=== PATIENT | female | born 1970 | race Caucasian/White ===

== ENCOUNTER 2017-01-05 06:38 | Emergency (ER) | payer OTHER ==
--- NOTE | 2017-01-05 07:06 | ED.ADGEN ---
Adult General [facility] HPI Patient is a 46-year-old female presents emergency department complaining of epigastric pain that started 4-5 hours ago. Last "a few seconds" each time it comes. She indicates the pain starts at her epigastrium and wraps around the right side. Does have a history of peptic ulcer disease. The pain is sharp and "takes her breath away" but resolves on its own. Patient denies any other associated symptoms such as denies diaphoresis, dyspnea, nausea, vomiting. She reports that she did have some nausea yesterday but that is not unusual for her. Review of Systems Review of Systems Constitutional: Denies fever or chills [] Eyes: Denies change in visual acuity, redness, or eye pain [] HENT: Denies nasal congestion or sore throat [] Respiratory: Denies cough or shortness of breath [] Cardiovascular: No additional information not addressed in HPI [] GI: Denies abdominal pain, nausea, vomiting, bloody stools or diarrhea [] : Denies dysuria or hematuria [] Musculoskeletal: Denies back pain or joint pain [] Integument: Denies rash or skin lesions [] Neurologic: Denies headache, focal weakness or sensory changes [] Endocrine: Denies polyuria or polydipsia [] Allergies Allergies Allergies Coded Allergies Type Severity Reaction Last Updated Verified aspirin Allergy Severe Shortness of Air 01/05/17 Yes chlordiazepoxide Allergy Severe Swelling 01/05/17 Yes clidinium Allergy Severe Swelling 01/05/17 Yes erythromycin base Allergy Intermediate Hives 01/05/17 Yes ibuprofen Allergy Intermediate Hives 01/05/17 Yes adhesive tape Allergy Unknown 01/05/17 Yes fentanyl Allergy Unknown 01/05/17 Yes morphine Allergy Unknown Swelling 01/05/17 Yes Physical Exam Physical Exam Constitutional: Well developed, well nourished, no acute distress, non-toxic appearance. [] HENT: Normocephalic, atraumatic, bilateral external ears normal, oropharynx moist, no oral exudates, nose normal. [] Eyes: PERRLA, EOMI, conjunctiva normal, no discharge. [] Neck: Normal range of motion, no tenderness, supple, no stridor. [] Cardiovascular:Heart rate regular rhythm, no murmur [] Lungs & Thorax: Bilateral breath sounds clear to auscultation [] Abdomen: Bowel sounds normal, soft, no tenderness, no masses, no pulsatile masses. [] Skin: Warm, dry, no erythema, no rash. [] Back: No tenderness, no CVA tenderness. [] Extremities: No tenderness, no cyanosis, no clubbing, ROM intact, no edema. [] Neurologic: Alert and oriented X 3, normal motor function, normal sensory function, no focal deficits noted. [] Psychologic: Affect normal, judgement normal, mood normal. [] Current Patient Data Vital Signs Vital Signs Date Time Temp Pulse Resp B/P Pulse Ox O2 Delivery O2 Flow Rate FiO2 01/05/17 07:15 70 22 111/61 94 Room Air 01/05/17 06:50 98.2 Lab Results Laboratory Tests Test 01/05/17 07:17 01/05/17 07:19 POC Hemoglobin 14.6gm/dL POC Hematocrit 43% POC Sodium 138mmol/L (135-145) POC Potassium 3.8mmol/L (3.5-5.0) POC Chloride 100mmol/L (98-110) POC Total CO2 23mmol/L (23-32) Anion Gap 20mmol/L (6-14) H POC Blood Urea Nitrogen 16mg/dL (8-26) POC Creatinine 1.1mg/dL (0.5-1.4) Glucose Level 106mg/dL (60-99) H POC Ionized Calcium (Kem) 1.30mmol/L (1.13-1.32) POC Troponin I 0.00ng/ml (<0.08) EKG EKG EKG interpreted by me, normal sinus rhythm, 69 beats for minute, normal axis, no ST segment elevation. [] Radiology/Procedures Radiology/Procedures Chest x-ray interpreted by me, no acute cardiopulmonary process. [] Course & Med Decision Making Course & Med Decision Making Pertinent Labs and Imaging studies reviewed. (See chart for details) Patient is a reassuring workup here. She states that she is new to the area needs a new primary care physician. We did give her a provider list. She will follow-up with her new primary care physician or her previous primary doctor as needed return emergency department sooner if she develops new or worsening symptoms. [] Final Impression Final Impression Chest pain [] Problems: Dragon Disclaimer Dragon Disclaimer This electronic medical record was generated, in whole or in part, using a voice recognition dictation system. LEE SLADE MD Jan 05, 2017 07:06
[2017-01-05 07:15] VITALS: BP 111/61
[2017-01-05 07:32] LABS: HEMOGLOBIN ISTAT 14.6 gm/dL; POTASSIUM ISTAT 3.8 mmol/L (3.5-5.0)
--- NOTE | 2017-01-05 08:18 | RAD ---
Portable chest, 01/05/2017: History: Chest pain The heart size and pulmonary vascularity are normal. No pulmonary infiltrates are seen. There is no evidence of pleural fluid. IMPRESSION: No acute cardiopulmonary abnormality is detected.
[2017-01-05] MEDS ORDERED: LINA290C PO (08:23)
[2017-01-05] MEDS ORDERED: MIRT15TA PO (08:23)
[2017-01-05] MEDS ORDERED: ALBU2.5V14 NEB (08:23)
[2017-01-05] MEDS ORDERED: PROM25TA10 PO (08:24)
[2017-01-05] MEDS ORDERED: BUDE10.2 IH (08:24)
[2017-01-05] MEDS ORDERED: ISOS60TA2 PO (08:25)
[2017-01-05] MEDS ORDERED: HYDR25TA PO (08:25)
[2017-01-05] MEDS ORDERED: ALBU8.5H3 INH (08:26)
[2017-01-05] MEDS ORDERED: INSU100I13 SQ (08:26)
[2017-01-05] MEDS ORDERED: METF500T4 PO (08:26)
[2017-01-05] MEDS ORDERED: MUPI22OI2 TP (08:27)
[2017-01-05] MEDS ORDERED: DULO60CA6 PO (08:27)
[2017-01-05] MEDS ORDERED: OXCA300T PO ×2 (08:28)
[2017-01-05] MEDS ORDERED: LEVE500T56 PO (08:29)
[2017-01-05] MEDS ORDERED: RANI150T2 PO (08:29)
[2017-01-05] MEDS ORDERED: GABA-586 PO (08:29)
[2017-01-05] MEDS ORDERED: TIZA4TAB PO (08:29)
[2017-01-05] MEDS ORDERED: SUMA50TA3 PO (08:30)
[2017-01-05] MEDS ORDERED: NITR0.4T6 SL (08:30)
[2017-01-05] MEDS ORDERED: LAMO100T5 PO (08:30)
[2017-01-05] MEDS ORDERED: OMEP40CA5 PO (08:31)
[2017-01-05] MEDS ORDERED: BACL10TA PO (08:31)
[2017-01-05] MEDS ORDERED: SPIR50TA2 PO (08:31)
[2017-01-05] MEDS ORDERED: QUET200T4 PO (08:32)
[2017-01-05] MEDS ORDERED: ATOR40TA59 PO (08:32)
[2017-01-05] MEDS ORDERED: RIVA10TA PO (08:32)
[2017-01-05] MEDS ORDERED: TIOT18CA IH (08:33)
[2017-01-05] MEDS ORDERED: METO25TA4 PO (08:33)
[2017-01-05] MEDS ORDERED: FLUT16SP NS (08:33)
[2017-01-05] MEDS ORDERED: ZONI100C12 PO (08:33)
[2017-01-05] MEDS ORDERED: HYDR8TAB PO (08:34)
[2017-01-05] MEDS ORDERED: DICL50TA4 PO (08:34)
--- NOTE | 2017-01-05 17:30 | EKG ---
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
== END 2017-01-05 07:57 | disposition home or self-care (01) ==
LOC: ER 06:38
DX: R07.9 Chest pain, unspecified (principal); R10.13 Epigastric pain; Z88.6 Allergy status to analgesic agent; Z88.8 Allergy status to other drugs, medicaments and biological substances; Z88.1 Allergy status to other antibiotic agents; Z88.5 Allergy status to narcotic agent
CPT/HCPCS: 71010; 80047; 84484; 93005; 99284-25

== ENCOUNTER 2017-05-22 05:36 | Observation (INO) | payer OTHER ==
[~2017-05-22] VITALS: Ht 157.5 cm; Wt 97.6 kg
[~2017-05-22 05:36] MED LIST: ALBU2.5V14 NEB; ALBU8.5H8 INH; ATOR40TA59 PO; BACL10TA PO; BUDE10.2 IH; DICL50TA4 PO; DULO60CA6 PO; FLUT16SP21 NS; GABA-586 PO; HYDR25TA PO; HYDR8TAB PO; INSU100I13 SQ; ISOS60TA2 PO; LAMO100T5 PO; LEVE500T56 PO; LINA290C PO; METF500T4 PO; METO25TA4 PO; MIRT15TA PO; MUPI22OI2 TP; NITR0.4T22 SL; OMEP40CA5 PO; OXCA300T PO; PROM25TA10 PO; QUET200T4 PO; RANI150T2 PO; RIVA10TA PO; SPIR50TA2 PO; SUMA50TA3 PO; TIOT18CA IH; TIZA4TAB PO; ZONI100C33 PO
[2017-05-22] MEDS ORDERED: diphenhydrAMINE 50 MG/ML VIAL ONE (05:42)
[2017-05-22] MEDS ORDERED: methylPREDNISolone SOD SUCC PF 125 MG/2 ML VIAL. ONE (05:42)
[2017-05-22] MEDS ORDERED: IPRATRPIUM/ALBUTEROL 0.5/2.5MG 3 ML NEBU. ONE (06:04)
--- NOTE | 2017-05-22 06:15 | PHYS DOC ---
Past History Past Medical History: COPD, CVA, Diabetes, GERD, High Cholesterol, Seizure, Other Past Surgical History: Cholecystectomy, Hysterectomy, Knee Replacement, Other Alcohol Use: None Drug Use: None Adult General Chief Complaint Chief Complaint: ALLERGIC REACTION HPI HPI Patient is a 47-year-old female with multiple medical problems including coronary disease status post stents, COPD, diabetes, gastroparesis secondary to diabetes, PEs, chronic migraines, who presents to the ER today secondary to a funny sensation in her throat after taking her Phenergan tablets. Patient reports that she has been taking Phenergan for years secondary to her history of diabetic gastroparesis and migraines in the past. Patient reports she's never had any problems with it. Patient reports that she is a heavy smoker and was smoking yesterday as well. Patient describes a funny sensation in her throat and tingling when this occurred. Patient denies any further symptoms for allergic reaction. Patient has no rashes. Patient's abdominal pain. Patient reports that she had associated shortness of breath. Patient reports that she does have a history of COPD and that this did feel slightly different than her usual COPD flare. Patient denies any other symptomatology at this time. She denies any fevers shakes chills nausea vomiting diarrhea cough cold or runny nose. Patient is having any chest discomfort this time. Review of systems: Constitutional: Denies fever or chills Eyes: Denies change in visual acuity, redness, or eye pain HENT: Denies nasal congestion or sore throat All other review systems are negative except as documented in the history of present illness portion. Physical exam: Constitutional: Well developed, well nourished, no acute distress, non-toxic appearance. HENT: Normocephalic, atraumatic, bilateral external ears normal, oropharynx moist, no oral exudates, nose normal. Eyes: PERRLA, EOMI, conjunctiva normal, no discharge. Neck: Normal range of motion, no tenderness, supple, no stridor. Cardiovascular:Heart rate regular rhythm Lungs & Thorax: Mild diffuse inspiratory wheezing. No stridor. Abdomen: Bowel sounds normal, soft, no tenderness, no masses, no pulsatile masses. Skin: Warm, dry, no erythema, no rash. Back: No tenderness, no CVA tenderness. Extremities: No tenderness, no cyanosis, no clubbing, ROM intact, no edema. Neurologic: Alert and oriented X 3, normal motor function, normal sensory function, no focal deficits noted. Psychologic: Affect normal, judgement normal, mood normal. Patient's physical exam was significant for wheezing bilaterally. Patient is tachypneic. Patient has no eyes. Patient's oropharynx is clear. There is no uvular edema. There is no stridor. There is no evidence of allergic reaction at this time other than the patient's symptoms. Assessment and plan This is a 47-year-old female who presents to the ER today secondary to taking a Phenergan tablet and feeling a funny sensation and burning sensation in her throat. Patient notes ER today secondary to a sensation of shortness of breath as well. Patient denies any other symptomatology. Patient's evaluation is unlikely secondary to an allergic reaction to Phenergan given that she has been on for quite a while now and the symptoms that she is X exhibiting are not classic for an allergic reaction. Although it is unlikely it is not impossible. The patient was given Benadryl and Solu-Medrol to assist her with her symptoms. I think what is more likely is that the patient might be having an COPD exacerbation. Patient will be given duo nebs in addition to Solu-Medrol and Benadryl. We will get a chest x-ray and basic labs secondary to her sensation of shortness of breath to rule out other causes given her complicated history. The case will be signed out to Dr. Alcantara for disposition and evaluation of labs. Patient currently appears clinically hemodynamically stable and will likely be stable for discharge if she feels improved after the medications. Current Medications Current Medications Current Medications Medications (Trade) Dose Ordered Sig/Indira Start Time Stop Time Status Last Admin Dose Admin Albuterol/ Ipratropium (Duoneb) 3 ml STK-MED ONCE 05/22/17 06:04 05/22/17 06:05 DC Diphenhydramine HCl (Benadryl) 50 mg 1X ONCE 05/22/17 06:15 05/22/17 06:16 UNV Methylprednisolone Sodium Succinate (SOLU-Medrol 125MG VIAL) 125 mg STK-MED ONCE 05/22/17 05:42 05/22/17 05:43 DC Allergies Allergies Allergies Coded Allergies Type Severity Reaction Last Updated Verified aspirin Allergy Severe Shortness of Air 01/05/17 Yes chlordiazepoxide Allergy Severe Swelling 01/05/17 Yes clidinium Allergy Severe Swelling 01/05/17 Yes erythromycin base Allergy Intermediate Hives 01/05/17 Yes ibuprofen Allergy Intermediate Hives 01/05/17 Yes adhesive tape Allergy Unknown 01/05/17 Yes fentanyl Allergy Unknown 01/05/17 Yes morphine Allergy Unknown Swelling 01/05/17 Yes EKG EKG [] Radiology/Procedures Radiology/Procedures [] Course & Med Decision Making Course & Med Decision Making Pertinent Labs and Imaging studies reviewed. (See chart for details) []0736: Report received from Dr. Li, patient seen and examined and chart reviewed. Past medical history significant for diabetes, COPD, seizure disorder , coronary artery disease, pulmonary embolus, hypertension, hyperlipidemia, GERD , and diabetic neuropathy. She says she just moved here from [facility] and doesn't have a doctor. She is a heavy smoker she says she had a normal heart catheterization in 2008 as well as a normal stress test she believes 3 years ago. Patient reports that after medications her facial burning symptoms have resolved but she does complain throat and chest tightness. No eosinophilia present on CBC, further evaluation is indicated. EKG: Sinus rhythm beats per minutes, mild diffuse flattening of the T waves no significant elevation or depression. Interpreted by me. PATIENT: RAFAEL VANCE ACCOUNT: [id number] : 1970 LOCATION: ER AGE: 47 SEX: F EXAM STATUS: REG ER ORD. PHYSICIAN: MULU JOLLY DO REASON: cp, elev d-dimer, h/o PE PROCEDURE: CT ANGIOGRAPHY CHEST CT angiography chest with contrast 05/22/2017 at 0938 hours Indication: Chest tightness and shortness of air. Elevated d-dimer. History of pulmonary embolism. Comparison: None available Technique: Multiple axial CT images of the chest were obtained after the administration of 75 mL Omnipaque 300. Coronal and sagittal reformats are provided. Maximum intensity projection images are provided for evaluation of the pulmonary arterial system. Findings: Thyroid gland is within normal limits. There are no enlarged lymph nodes in the axilla, mediastinum or hilar regions. Heart size is within normal limits. There are no pericardial effusions. Thoracic aorta is normal in course and caliber. There is adequate opacification of the pulmonary arterial system. There are no filling defects to suggest an acute pulmonary embolism. There is a calcified granuloma in the left lung base and in the right upper lobe. No suspicious pulmonary nodules are identified. There are no pulmonary infiltrates. There is subsegmental atelectasis at the lung bases. No pulmonary vascular congestion. No pneumothorax. Visualized portions of the upper abdomen are within normal limits. No suspicious osseous lesions are identified. Impression: 1. No evidence for acute pulmonary embolus. 2. No acute process is identified in the thorax. PQRS Compliance Statement: One or more of the following individualized dose reduction techniques were utilized for this examination: 1. Automated exposure control 2. Adjustment of the mA and/or kV according to patient size 3. Use of iterative reconstruction technique DICTATED AND SIGNED BY: NEHAL WALLS MD DATE: 05/22/17 1014 CC: PCP,NO; MULU JOLLY DO ~ 1100: Prolonged ED course due to unusually heavy emergency department volume for this time of day as well as a backup in radiology. Patient reports some improvement with her throat and breathing symptoms with nitroglycerin sublingually 1, symptoms improved from 10/10 to 7/10. 1123: Due to nitroglycerin response and the patient's history I discussed the patient with on-call cardiology nurse practitioner Fabiola. She recommends [facility] admission for serial cardiac enzymes and cardiology consultation. 1129: I discussed the patient with Dr. Laws who accepts observation telemetry admission as above. Dragon Disclaimer Dragon Disclaimer This chart was dictated in whole or in part using Voice Recognition software in a busy, high-work load, and often noisy Emergency Department environment. It may contain unintended and wholly unrecognized errors or omissions. Departure Disposition: 09 ADMITTED INPATIENT Diagnosis: chest pain, COPD Condition: STABLE Referrals: PCP,NO (PCP) Additional Instructions: Observation telemetry admission Dr. Laws is accepting. Departure Departure: Disposition: 09 ADMITTED INPATIENT Condition: STABLE Referrals: PCP,NO (PCP) Additional Instructions: Observation telemetry admission Dr. Laws is accepting. LOLA LI MD May 22, 2017 06:15 MULU JOLLY DO May 22, 2017 07:37
[2017-05-22] MEDS ORDERED: diphenhydrAMINE 50 MG/ML VIAL IV ONE (06:30)
--- NOTE | 2017-05-22 06:48 | EKG ---
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
[2017-05-22 06:55] LABS: BASO % 0 % (0-3); EOS # 0.1 x10^3/uL (0.0-0.7); EOS % 1 % (0-3); HEMATOCRIT 35.8 % (36.0-47.0); HEMOGLOBIN 12.3 g/dL (12.0-15.5); LYMPH # 2.2 x10^3/uL (1.0-4.8); LYMPH % 24 % (24-48); MEAN CORPUSCULAR HEMOGLOBIN 32 pg (25-35); MEAN CORPUSCULAR HGB CONC 34 g/dL (31-37); MEAN CORPUSCULAR VOLUME 93 fL (79-100); MONO # 0.8 x10^3/uL (0.0-1.1); MONO % 9 % (0-9); NEUT % 66 % (31-73); PLATELET COUNT 248 x10^3/uL (140-400); RED BLOOD COUNT 3.85 x10^6/uL (3.50-5.40); RED CELL DISTRIBUTION WIDTH 13.7 % (11.5-14.5); WHITE BLOOD COUNT 9.2 x10^3/uL (4.0-11.0)
[2017-05-22] MEDS ORDERED: IPRATRPIUM/ALBUTEROL 0.5/2.5MG 3 ML NEBU. NEB ONE (07:00)
[2017-05-22] MEDS ORDERED: methylPREDNISolone SOD SUCC PF 125 MG/2 ML VIAL. IV ONE (07:00)
--- NOTE | 2017-05-22 07:08 | RAD ---
Chest, 2 views, 05/22/2017: History: Shortness of breath, asthma Comparison is made to a study from 01/05/2017. The heart size and pulmonary vascularity are normal. No pulmonary infiltrates are seen. The lungs are slightly hyperexpanded. No pleural fluid is evident. Mild spurring is present in the spine. A surgical plate and screws is evident in the lower cervical region. IMPRESSION: No acute cardiopulmonary abnormality is detected.
[2017-05-22 07:18] LABS: ALBUMIN 3.2 g/dL (3.4-5.0); ALBUMIN/GLOBULIN RATIO 1.2 (1.0-1.7); CALCIUM 8.5 mg/dL (8.5-10.1); CREATININE 0.7 mg/dL (0.6-1.0); GFR 88.9; POTASSIUM 3.9 mmol/L (3.5-5.1); TOTAL BILIRUBIN 0.3 mg/dL (0.2-1.0); TOTAL PROTEIN 5.9 g/dL (6.4-8.2)
[2017-05-22] MEDS ORDERED: IV NORMAL SALINE 1,000ML 1,000 ML IV ONE (07:30)
[2017-05-22 08:06] LABS: CREATINE KINASE 81 U/L (26-192)
[2017-05-22] MEDS ORDERED: IOHEXOL 300 MG/ML 75 ML VIAL. IV ONE (09:40)
--- NOTE | 2017-05-22 10:24 | RAD ---
CT angiography chest with contrast 05/22/2017 at 0938 hours Indication: Chest tightness and shortness of air. Elevated d-dimer. History of pulmonary embolism. Comparison: None available Technique: Multiple axial CT images of the chest were obtained after the administration of 75 mL Omnipaque 300. Coronal and sagittal reformats are provided. Maximum intensity projection images are provided for evaluation of the pulmonary arterial system. Findings: Thyroid gland is within normal limits. There are no enlarged lymph nodes in the axilla, mediastinum or hilar regions. Heart size is within normal limits. There are no pericardial effusions. Thoracic aorta is normal in course and caliber. There is adequate opacification of the pulmonary arterial system. There are no filling defects to suggest an acute pulmonary embolism. There is a calcified granuloma in the left lung base and in the right upper lobe. No suspicious pulmonary nodules are identified. There are no pulmonary infiltrates. There is subsegmental atelectasis at the lung bases. No pulmonary vascular congestion. No pneumothorax. Visualized portions of the upper abdomen are within normal limits. No suspicious osseous lesions are identified. Impression: 1. No evidence for acute pulmonary embolus. 2. No acute process is identified in the thorax. PQRS Compliance Statement: One or more of the following individualized dose reduction techniques were utilized for this examination: 1. Automated exposure control 2. Adjustment of the mA and/or kV according to patient size 3. Use of iterative reconstruction technique
[2017-05-22] MEDS ORDERED: NITROGLYCERIN SUBLINGUAL 0.4 MG BOTTLE OF 25. SL PRN ×3 (11:00→15:15)
[2017-05-22] MEDS ORDERED: ONDANSETRON PF 4 MG/2 ML VIAL. ONE (11:04)
[2017-05-22] MEDS ORDERED: ONDANSETRON PF 4 MG/2 ML VIAL. IV ONE (11:30)
[2017-05-22] MEDS ORDERED: IPRATRPIUM/ALBUTEROL 0.5/2.5MG 3 ML NEBU. NEB SCH (12:00)
[2017-05-22] MEDS ORDERED: ACETAMINOPHEN 325 MG TABLET PO PRN (12:00)
[2017-05-22 13:08] VITALS: BP 103/70
[2017-05-22 13:10] VITALS: BP 103/70
[2017-05-22] MEDS ORDERED: ISOS30TA4 PO (14:23)
[2017-05-22] MEDS ORDERED: QUET25TA5 PO ×2 (14:23)
[2017-05-22] MEDS ORDERED: FLUT1AER IH (14:23)
[2017-05-22] MEDS ORDERED: DULA0.75 SQ (14:24)
[2017-05-22] MEDS ORDERED: MIRT15TA PO (14:25)
[2017-05-22] MEDS ORDERED: DEXTROSE 50% 25 GM / 50ML DISP.SYRIN. IV PRN (14:45)
[2017-05-22] MEDS ORDERED: ALBUTEROL SULFATE 2.5 MG/3 ML NEBU. NEB PRN (14:45)
--- NOTE | 2017-05-22 14:45 | CONS ---
DATE OF CONSULTATION: 05/22/2017 REASON FOR CONSULTATION: Discomfort in the chest. HISTORY OF PRESENT ILLNESS: The patient is a 47-year-old woman with past medical history as noted below, who presents to the hospital in the setting of having a funny feeling in her throat over the course of the last 6-12 hours prior to admission. ER evaluation did not reveal any significant pathology and she was admitted to the hospital due to some chest tightness. In speaking with the patient, she reports that her chest tightness is not similar to any pain she has had prior to her intervention. She reports that her discomfort is mostly burning in nature and she felt like she had some battery acid in her throat. This also caused some flushing in her face. She does have a history of gastroesophageal reflux disease and feels that this is an exacerbation of that or perhaps her COPD. At baseline prior to admission, she denies any exertional chest pain. She does have chronic dyspnea related to her smoking and her COPD. She does not recall her prior interventions, but thinks she may have had 2-3 stents in the remote past. PAST MEDICAL HISTORY: 1. Coronary artery disease, status post PCI. 2. Diabetes. 3. Hypertension. 4. Dyslipidemia. 5. COPD. 6. Tobacco abuse. SOCIAL HISTORY: The patient denies any illegal drugs or significant alcohol use. She does smoke 1 pack of cigarettes per day. FAMILY HISTORY: Noncontributory. MEDICATIONS: Current cardiovascular medications at home as follows: 1. Atorvastatin 40 mg daily. 2. Imdur 60 mg b.i.d. 3. Metoprolol 25 mg b.i.d. 4. Omeprazole 40 mg daily. 5. Xarelto 20 mg daily. 6. Spironolactone 50 mg b.i.d. ALLERGIES: Aspirin, ibuprofen, and morphine among other medications and these were reviewed. REVIEW OF SYSTEMS: Negative for 10 out of 14 systems reviewed, unless otherwise mentioned above in HPI. PHYSICAL EXAMINATION: VITAL SIGNS: Afebrile, pulse 66, respirations 20, blood pressure 103/70, saturation 95% on room air. GENERAL: She is alert and oriented, no acute distress. HEAD AND NECK: Unremarkable. HEART: Regular rate and rhythm without any murmurs, rubs, or gallops. LUNGS: Clear to auscultation bilaterally. ABDOMEN: Soft, nontender, nondistended. EXTREMITIES: Without any clubbing, cyanosis, or edema with diminished radial and dorsalis pedis pulses. NEUROLOGIC: No focal deficits. MUSCULOSKELETAL: No trauma. PSYCHIATRIC: Normal mood and affect. DIAGNOSTIC STUDIES: Hemoglobin, platelets, creatinine, and cardiac enzymes are negative. Her BNP is within normal limits. CT of the chest is unremarkable. EKG performed this morning does not reveal any significant acute ischemic pathology. IMPRESSION: 1. Noncardiac chest pain. 2. Prior history of coronary artery disease, status post PCI. 3. Hypertension. 4. Dyslipidemia. RECOMMENDATIONS: Would more grossly treat her gastroesophageal reflux disease and if this fails to improve could then consider outpatient stress test. We will follow up on an outpatient basis and she will be given appointments to our office. Thank you for this consultation. PRINCESS ORTIZ MD DR: MAYRA/douglas JOB#: [id number] / [id number]
[2017-05-22] MEDS ORDERED: tiZANidine 4 MG TABLET. PO PRN (15:15)
[2017-05-22] MEDS ORDERED: ALBUTEROL SULFATE 8GM INHALER. INH PRN (15:15)
[2017-05-22] MEDS ORDERED: PROMETHAZINE 25 MG TABLET. PO PRN (15:15)
[2017-05-22] MEDS ORDERED: hydrOXYzine HCL 25 MG TABLET PO PRN (15:15)
[2017-05-22] MEDS: IPRATRPIUM/ALBUTEROL 0.5/2.5MG 3 ML NEBU. NEB SCH ×2 (15:16→20:58)
[2017-05-22] MEDS ORDERED: PANTOPRAZOLE 40 MG TABLET. PO ONE (15:30)
[2017-05-22] MEDS: HYDROmorphone 2 MG TABLET PO SCH ×2 (15:49→20:54)
[2017-05-22] MEDS ORDERED: QUEtiapine 25 MG TABLET. PO SCH (16:00)
[2017-05-22] MEDS: metFORMIN 500 MG TABLET PO SCH (17:00)
[2017-05-22] MEDS: methylPREDNISolone SOD SUCC PF 40 MG/ML VIAL. IV SCH (17:00)
[2017-05-22] MEDS: INSULIN ASPART 300 UNITS/3 ML INSULN.PEN SQ SCH ×2 (17:02→20:45)
[2017-05-22] MEDS: ONDANSETRON PF 4 MG/2 ML VIAL. IV PRN (17:39)
[2017-05-22] MEDS ORDERED: ALBUTEROL SULFATE 2.5 MG/0.5 ML NEBU. NEB SCH (18:00)
[2017-05-22] MEDS ORDERED: methylPREDNISolone SOD SUCC PF 125 MG/2 ML VIAL. IV SCH (18:00)
[2017-05-22 18:44] VITALS: BP 110/66
[2017-05-22] MEDS ORDERED: SUMAtriptan SUCCINATE 50 MG TABLET PO PRN (19:15)
--- NOTE | 2017-05-22 20:40 | HP ---
ADMIT DATE: 05/22/2017 HISTORY OF PRESENT ILLNESS: This is a 47-year-old female patient who came to the Emergency Room complaining of chest discomfort that started almost 24 hours ago associated chest tightness. She described her symptoms having funny feeling in her throat associated with chest tightness, nausea, vomiting and diaphoresis. She stated that the chest tightness is not similar to any pain that she had prior to her intervention. She describes it as mostly burning in nature and she felt like she had had some battery acid in her throat that has caused some flushing on her face. She does have history of gastroesophageal reflux disease. Her symptoms are not associated with any exertion and appeared at rest. She apparently is known to have coronary artery disease and had had 2 or 3 stents in the past. She was evaluated in the Emergency Room and had 2 sets of cardiac enzymes, both of them were less than 0.017. Her EKG showed no significant acute ischemic pathology and she was admitted for 2 more sets of cardiac enzyme, consult the Cardiology and check her fasting lipid profile. PAST MEDICAL HISTORY: Significant for hypertension, type 2 diabetes, hyperlipidemia, coronary artery disease status post PCI with 2 stents deployment. 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 She is known to have glaucoma as well as cataracts. She seemed also to have a neurogenic bladder requiring bladder stimulator. PAST SURGICAL HISTORY: Significant for bilateral total knee arthroplasty, bilateral shoulder replacements, cervical spine surgery, total abdominal hysterectomy and bilateral salpingo-oophorectomy, lymph node resection from both axillary area, bilateral cataract extraction, tonsillectomy, appendectomy, cholecystectomy, bladder stimulation x 3, EGD and colonoscopy. ALLERGIES: She is allergic to ADHESIVE TAPE, ASPIRIN, CHLORDIAZEPOXIDE, , ERYTHROMYCIN, FENTANYL, IBUPROFEN and MORPHINE. MEDICATIONS: She is currently on the following medications: She is on albuterol sulfate 2.5 mg in 0.5 mL every 6 hours, albuterol sulfate by nebulizer for inhaler every 6 hours as needed, atorvastatin calcium 40 mg at bedtime, baclofen 10 mg 3 times a day, diclofenac sodium 50 mg tablet 3 times a day, Trulicity 0.75 mg subcutaneously daily, duloxetine 60 mg for Cymbalta 2 capsules at bedtime, Flonase 2 sprays to each nostril twice a day, Breo Ellipta 100/25 mcg 1 puff once a day, gabapentin 300 mg p.o. at , hydromorphone 8 mg 3 times a day, hydroxyzine 25 mg q.i.d. p.r.n. for anxiety and agitation. She is on Lantus insulin 16 units at bedtime, isosorbide mononitrate 30 mg once a day, lamotrigine for Lamictal 200 mg twice a day, linaclotide for Linzess 290 mg once a day, Levetiracetam 1000 mg p.o. b.i.d., metformin 250 mg twice a day, metoprolol tartrate 25 mg p.o. b.i.d., mirtazapine 15 mg at bedtime, Bactroban one application 3 times a day, nitroglycerin 0.4 mg sublingually every 5 minutes x 3, omeprazole 40 mg once a day, carbamazepine 300 mg daily, oxcarbazepine 600 mg daily with supper, Promethazine 25 mg q. 6 hourly, quetiapine fumarate 200 mg at bedtime, Seroquel 25 mg daily, ranitidine 150 mg p.o. b.i.d., rivaroxaban for Xarelto 20 mg once a day, spironolactone 50 mg once a day, sumatriptan succinate for Imitrex 1 tablet p.o. daily, tiotropium bromide for Spiriva HandiHaler 1 inhalation once a day, Tizanidine 4 mg at p.o. bedtime and zonisamide for Zonegran 2 capsules at bedtime. FAMILY HISTORY: She has 1 brother and 3 sisters. Her oldest sister has severe diabetes and chronic kidney disease. Her younger sister has ovarian cancer. She does not know her biological father. Her mother is alive at age of 72. She is a breast cancer survivor. SOCIAL HISTORY: She is , has 1 daughter and 2 sons. She smokes 1 pack per day. She does not drink alcohol; however, she uses marijuana to help her sleep. 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 REVIEW OF SYSTEMS: The patient stated that she has bilateral cataract extraction and glaucoma in her left eye, but denied any senile macular degeneration. Denied any earache, tinnitus or sensorineural deafness. Denied any nosebleeds, stuffy nose or postnasal drip. Denied any sore throat, sore tongue, toothache, hoarseness of voice or difficulty swallowing. Denied any nausea, vomiting, diarrhea or constipation. Denied any hematemesis, melena or hematochezia. Denied any dysuria, frequency or hematuria. Did complain of chest tightness and what seems to be esophageal reflux disease. PHYSICAL EXAMINATION: GENERAL: On arrival to the Emergency Room, she looked well and was clearly in no apparent distress. She was slightly pale, but no jaundice, cyanosis or thyromegaly. No jugular venous distention. No limb edema. VITAL SIGNS: Her heart rate was 67, blood pressure was 110/67, temperature was 97, respiratory rate 22, and oxygen saturation was 96%. HEAD, EYES, EARS, NOSE AND THROAT: Showed normocephalic, atraumatic. NECK: Supple. HEART: Showed normal first and second heart sounds with no gallop, rub or murmur. CHEST: Clear to auscultation. No crepitation or rhonchi. ABDOMEN: Distended, soft, nontender. NEUROLOGIC: She was awake, alert, responding appropriately. All her cranial nerves are intact. EXTREMITIES: She moves extremities without difficulty, ambulates without assistance or assistive devices. LABORATORY DATA: On admission showed a serum sodium 133, potassium 3.9, chloride 99, bicarbonate 26, anion gap of 8, BUN 12, creatinine 0.7, estimated GFR was 88 mL per minute. Her glucose was 93, calcium was 8.5. Total bilirubin, AST and ALT are normal. Alkaline phosphatase slightly elevated. Her first set of cardiac enzymes showed troponin to be less than 0.017. Total protein was 5.9, albumin 3.2. Her white cell count was 9200, hemoglobin 12, hematocrit 36, MCV 93, and platelet count 248,000. Her prothrombin time was 10.7, INR of 1, aPTT was 26 and D-dimer was 0.65 mg/dL. Her chest x-ray was unremarkable and showed no acute cardiopulmonary abnormality is detected. Her CT angio of the chest showed that there is no evidence for acute pulmonary embolus. No acute process identified in thorax. ASSESSMENT AND PLAN: The patient was admitted with what seemed to be fairly atypical chest pain, likely due to gastroesophageal reflux disease; however, the patient has multiple risk factors, she has had before coronary artery disease and had a stent deployed, she continues to smoke. On the other hand, she is a smoker. Her body mass index was 39 and she is also on diclofenac 50 mg 3 times a day. All of these are contributing to possible severe acid reflux. We will do 2 more sets of cardiac enzyme, consult the Cardiology team, check her fasting lipid profile and if all the enzymes are negative we will discharge her to follow with Cardiology as an outpatient. ALEX ARELLANO MD DR: CELESTINO/douglas JOB#: [id number] / [id number]
[2017-05-22] MEDS: FLUTICASONE 50MCG/NASAL SPRAY 16GM BOTTLE. NS SCH (20:47)
[2017-05-22] MEDS: MUPIROCIN 2% TOPICAL OINTMENT 22GM TUBE. TP SCH (20:47)
[2017-05-22] MEDS: FAMOTIDINE 20 MG TABLET PO SCH (20:54)
[2017-05-22] MEDS: lamoTRIgine 100 MG TABLET. PO SCH (20:54)
[2017-05-22] MEDS: PANTOPRAZOLE 40 MG TABLET. PO SCH (20:54)
[2017-05-22] MEDS: BACLOFEN 10 MG TABLET PO SCH (20:54)
[2017-05-22] MEDS: levETIRAcetam 500 MG TABLET PO SCH (20:54)
[2017-05-22] MEDS: METOPROLOL TART IMMED RELEASE 25 MG TABLET PO SCH (20:55)
[2017-05-22] MEDS: DICLOFENAC SODIUM 50 MG TABLET.DR PO SCH (20:56)
[2017-05-22] MEDS: BUDESONIDE 0.5 MG/2 ML NEBU NEB SCH (20:58)
[2017-05-22] MEDS ORDERED: INSULIN DETEMIR 300 UNITS/3 ML INSULN.PEN. SQ SCH (21:00)
[2017-05-22] MEDS ORDERED: ZONISAMIDE 100 MG CAPSULE. PO SCH (21:00)
[2017-05-22] MEDS ORDERED: MIRTAZAPINE 15 MG TABLET PO SCH (21:00)
[2017-05-22] MEDS ORDERED: DULoxetine HCL 60 MG CAPSULE.DR PO SCH (21:00)
[2017-05-22] MEDS ORDERED: QUEtiapine 100 MG TABLET. PO SCH (21:00)
[2017-05-22] MEDS ORDERED: GABAPENTIN 300 MG CAPSULE. PO SCH (21:00)
[2017-05-22] MEDS ORDERED: diphenhydrAMINE HCL 25 MG CAPSULE PO PRN (21:15)
[2017-05-22 22:38] VITALS: BP 102/66
[2017-05-23] MEDS: IPRATRPIUM/ALBUTEROL 0.5/2.5MG 3 ML NEBU. NEB SCH ×2 (05:35→09:26)
[2017-05-23 06:07] VITALS: BP 96/58
[2017-05-23] MEDS: methylPREDNISolone SOD SUCC PF 40 MG/ML VIAL. IV SCH (06:23)
[2017-05-23 06:44] LABS: CALCIUM 9.2 mg/dL (8.5-10.1); CREATININE 0.6 mg/dL (0.6-1.0); GFR 106.3; POTASSIUM 3.7 mmol/L (3.5-5.1)
[2017-05-23] MEDS ORDERED: LINACLOTIDE 145 MCG CAPSULE. PO SCH (07:00)
[2017-05-23 07:18] LABS: BASO % 0 % (0-3); EOS % 0 % (0-3); HEMATOCRIT 43.3 % (36.0-47.0); HEMOGLOBIN 13.8 g/dL (12.0-15.5); LYMPH # 1.4 x10^3/uL (1.0-4.8); LYMPH % 14 % (24-48); MEAN CORPUSCULAR HEMOGLOBIN 32 pg (25-35); MEAN CORPUSCULAR HGB CONC 32 g/dL (31-37); MEAN CORPUSCULAR VOLUME 99 fL (79-100); MONO # 0.7 x10^3/uL (0.0-1.1); MONO % 7 % (0-9); NEUT # 8.3 x10^3uL (1.8-7.7); NEUT % 80 % (31-73); PLATELET COUNT 250 x10^3/uL (140-400); RED BLOOD COUNT 4.35 x10^6/uL (3.50-5.40); RED CELL DISTRIBUTION WIDTH 14.4 % (11.5-14.5); WHITE BLOOD COUNT 10.4 x10^3/uL (4.0-11.0)
[2017-05-23 07:27] VITALS: BP 101/70
[2017-05-23] MEDS ORDERED: ISOSORBIDE MONONITRATE ER 30 MG TAB.ER.24H PO ONE (07:28)
[2017-05-23] MEDS ORDERED: RIVAROXABAN 10 MG TABLET. ONE (07:28)
[2017-05-23] MEDS ORDERED: ATORVASTATIN CALCIUM 20 MG TABLET ONE (07:29)
[2017-05-23] MEDS: INSULIN ASPART 300 UNITS/3 ML INSULN.PEN SQ SCH ×2 (07:30→11:30)
[2017-05-23] MEDS: metFORMIN 500 MG TABLET PO SCH (07:33)
[2017-05-23] MEDS: FLUTICASONE 50MCG/NASAL SPRAY 16GM BOTTLE. NS SCH (07:33)
[2017-05-23] MEDS: DICLOFENAC SODIUM 50 MG TABLET.DR PO SCH (07:34)
[2017-05-23] MEDS: PANTOPRAZOLE 40 MG TABLET. PO SCH (07:34)
[2017-05-23] MEDS: lamoTRIgine 100 MG TABLET. PO SCH (07:34)
[2017-05-23] MEDS: HYDROmorphone 2 MG TABLET PO SCH (07:34)
[2017-05-23] MEDS: levETIRAcetam 500 MG TABLET PO SCH (07:35)
[2017-05-23] MEDS: BACLOFEN 10 MG TABLET PO SCH (07:35)
[2017-05-23] MEDS: FAMOTIDINE 20 MG TABLET PO SCH (07:35)
[2017-05-23] MEDS: ONDANSETRON PF 4 MG/2 ML VIAL. IV PRN (08:27)
[2017-05-23] MEDS: MUPIROCIN 2% TOPICAL OINTMENT 22GM TUBE. TP SCH (09:00)
[2017-05-23] MEDS ORDERED: RIVAROXABAN 10 MG TABLET. PO SCH (09:00)
[2017-05-23] MEDS ORDERED: NON FORMULARY ITEM (Dulaglutide (Trulicity) 0.75 MG) SQ SCH (09:00)
[2017-05-23] MEDS ORDERED: NON FORMULARY ITEM (Omeprazole 1 CAP) PO SCH (09:00)
[2017-05-23] MEDS: METOPROLOL TART IMMED RELEASE 25 MG TABLET PO SCH (09:00)
[2017-05-23] MEDS ORDERED: ATORVASTATIN CALCIUM 20 MG TABLET PO SCH (09:00)
[2017-05-23] MEDS ORDERED: SPIRONOLACTONE 25 MG TABLET PO SCH (09:00)
[2017-05-23] MEDS ORDERED: NON FORMULARY ITEM (Fluticasone/Vilanterol (Breo Ellipta 100-25 Mcg Inh) 1 PUFF) IH SCH (09:00)
[2017-05-23] MEDS ORDERED: QUEtiapine 25 MG TABLET. PO SCH (09:00)
[2017-05-23] MEDS ORDERED: NON FORMULARY ITEM (Tiotropium Bromide (Spiriva) 1 CAP) IH SCH (09:00)
[2017-05-23] MEDS ORDERED: ISOSORBIDE MONONITRATE ER 30 MG TAB.ER.24H PO SCH (09:00)
[2017-05-23] MEDS: BUDESONIDE 0.5 MG/2 ML NEBU NEB SCH (09:25)
[2017-05-23 11:00] VITALS: BP 112/69
[2017-05-23] MEDS ORDERED: NICOTINE 21MG PATCH. TD SCH (11:00)
[2017-05-23] MEDS ORDERED: OMEP40CA5 PO (13:03)
[2017-05-23] MEDS ORDERED: NICO1PAT21 TP (13:12)
[2017-05-23 13:36] LABS: THYROID STIM HORMONE (TSH) 0.62 uIU/mL (0.358-3.740)
--- NOTE | 2017-05-23 23:51 | ACF ---
Admission Criteria Forms COPD Clinical Indications for Admission to Inpatient Care ([place]/check or initial the applicable condition/criteria) Admission is indicated for ANY ONE of the following (1)(2)(3): [ ]I. Acute exacerbation by high-risk comorbidity(e.g., pneumonia, dysrhythmia, heart failure, pleural effusion, pneumothorax) or severe underlying COPD (eg, baseline FEV1 less than 50% predicted) [X]II. Inpatient admission required[A] rather than observation care (see Chronic Obstructive Pulmonary Disease: Observation Care) because of ANY ONE of the following: [X]a) New or pre-existing signs or symptoms of COPD (eg, dyspnea or Tachypnea at rest or with minimal activity) that persist despite outpatient and observation care treatment [ ]b) New-onset hypoxemia (room air SaO2 less than 90%, PO2 less than 60 mm Hg (8.0 kPa)) that persists despite outpatient and observation care treatment [ ]c) Worsening of pre-existing hypoxemia (eg, new or increased requirement for supplemental oxygen to maintain oxygenation at baseline level) that persists despite outpatient and observation care treatment, with oxygen treatment needs performable only in acute inpatient setting [ ]d) Hypercarbia (PCO2 greater than 40 mm Hg (5.3 kPa))-induced respiratory acidosis (pH less than 7.35) that persists despite outpatient and observation care treatment [ ]e) Supplemental oxygen or respiratory treatments for over 24 hours that are performable only in acute inpatient setting [ ]f) Chest tube placement with active evacuation (e.g., suction, drainage) (6) [ ]g) Other condition, treatment or monitoring requiring inpatient admission [ ]III. Planned invasive surgical or diagnostic procedures requiring acute- care hospitalization [ ]IV. Acute respiratory failure (e.g., uncompensated hypercarbia, severe hypoxemia) [ ]V. Severe comorbid condition (e.g., severe steroid myopathy, acute vertebral fracture) that has acutely worsened pulmonary function [ ]. Altered mental status that is severe or persistent Extended stay beyond goal length of stay may be needed for (29)(30)(31)(32)(33) : [ ]a ) Respiratory Failure. [ ]b) Severe or persisting hypoxemia or hypercarbia [ ]c) Severe or persistent dyspnea [ ]d) Clinically significant Comorbidities (e.g. chronic heart failure, atrial fibrillation with rapid response, pneumonia)(36) [ ]e) Malnutrition (33) The original [facility] content created by [facility] has been revised. The portions of the content which have been revised are identified through the use of italic text, and [facility] has neither reviewed nor approved the modified material. All other unmodified content is copyright [facility]. Please see references footnoted in the original [facility] edition 2015 Admission Criteria Met?: Yes MARYANN LEWIS May 23, 2017 23:51
--- NOTE | 2017-05-23 23:56 | DS ---
DATE OF DISCHARGE: 05/23/2017 HISTORY OF PRESENT ILLNESS: The patient is a 47-year-old female patient, who came with a complaint of what she describes as a funny feeling in her throat over the course of the last 6-12 hours prior to admission. She stated that she has also had chest tightness that is not similar to any pain that she had prior to her intervention and describes her discomfort was mostly burning in nature. She feels like she had some acid in her throat. She was admitted basically with atypical chest pain and had had 3 sets of cardiac enzymes, were all negative. EKG was unremarkable. She was evaluated by the Cardiology team, who felt that this is nonischemic in nature and that the patient can be discharged safely to be followed as an outpatient, transpired that she also continues to smoke. She is also on nonsteroidal anti-inflammatory medication and her body mass index 39, all obviously makes acid reflux, highly likely and compatible with her complaint. PHYSICAL EXAMINATION: GENERAL: When I examined her today, she looked well and was clearly in no apparent respiratory distress, pale, but no jaundice, cyanosis, or thyromegaly. No jugular venous distention. No limb edema. VITAL SIGNS: Her heart rate was 68, blood pressure was 112/69, temperature was 98.4, respiratory rate 20, and oxygen saturation was 97%. The rest of clinical examination is unremarkable, has not really changed. LABORATORY DATA: Her lab work this morning showed a white cell count of 10,400, hemoglobin 14, hematocrit 42, MCV 99 and platelet count 250,000 with normal manual differential. Her serum sodium 139, potassium 3.7, chloride 103, bicarbonate 29, anion gap of 7, BUN 13, creatinine 0.6, estimated GFR was 106 mL per minute. Her glucose was 126. Calcium was 9.2. She had 3 sets of cardiac enzymes, all of them were negative with a troponin to be less than 0.017. She did have a CT scan of the chest with PE protocol, which was negative and showed no evidence of pulmonary emboli and no acute process identified in her thorax. The patient was advised to increase her omeprazole to 40 mg twice a day, take her of nonsteroidals with food, elevate the head of the bed. We encouraged her to quit smoking and avoid alcohol and elevate the head of the bed. FINAL DISCHARGE DIAGNOSES: 1. Atypical chest pain, most likely due to severe acid reflux. Other medical problems including hypertension, well controlled. 2. Type 2 diabetes mellitus. 3. Coronary artery disease, status post PCI with stent deployment. 4. Cerebrovascular accident with resultant left-sided hemiparesis, generalized osteoarthritis, history of lymphoma, treated with chemotherapy at the age of 21. She has also glaucoma and cataract. She has also neurogenic bladder, requiring bladder stimulator. ALEX ARELLANO MD DR: CELESTINO/douglas JOB#: [id number] / [id number]
== END 2017-05-23 14:08 | disposition home or self-care (01) ==
LOC: ER 05:36 → 1 SOUTH 11:32
PROVIDERS: ADMIT Internal Medicine; ATTEND Internal Medicine
DX: R07.89 Other chest pain (principal); I10 Essential (primary) hypertension; I25.10 Atherosclerotic heart disease of native coronary artery without angina pectoris; I69.954 Hemiplegia and hemiparesis following unspecified cerebrovascular disease affecting left non-dominant side; H40.9 Unspecified glaucoma; K21.9 Gastro-esophageal reflux disease without esophagitis; E78.5 Hyperlipidemia, unspecified; N31.9 Neuromuscular dysfunction of bladder, unspecified; E78.00 Pure hypercholesterolemia, unspecified; F17.210 Nicotine dependence, cigarettes, uncomplicated; J44.9 Chronic obstructive pulmonary disease, unspecified; F12.90 Cannabis use, unspecified, uncomplicated; G43.909 Migraine, unspecified, not intractable, without status migrainosus; E11.43 Type 2 diabetes mellitus with diabetic autonomic (poly)neuropathy; K31.84 Gastroparesis; Z98.42 Cataract extraction status, left eye; Z90.710 Acquired absence of both cervix and uterus; Z85.72 Personal history of non-Hodgkin lymphomas; Z98.41 Cataract extraction status, right eye; Z80.41 Family history of malignant neoplasm of ovary; Z96.653 Presence of artificial knee joint, bilateral; Z68.39 Body mass index [BMI] 39.0-39.9, adult; Z95.5 Presence of coronary angioplasty implant and graft; Z92.21 Personal history of antineoplastic chemotherapy; Z86.711 Personal history of pulmonary embolism; M15.9 Polyosteoarthritis, unspecified
CPT/HCPCS: 36415; 71020; 71275; 80048; 80053; 80061; 82550; 82947; 83880; 84443; 84484; 85025; 85379; 85610; 85730; 93005; 94640; 94760; 96361; 96372; 96374; 96375; 96376; 97162; 97165; 99285; G0378; G8978; G8979; G8987; G8989; J1200; J1815; J2405; J2920; J2930; J7030; J7620; J7626; Q0163; Q0169; Q9967; G0379

== ENCOUNTER 2017-08-31 10:09 | Emergency (ER) | payer OTHER ==
[~2017-08-31] VITALS: Ht 157.5 cm; Wt 97.5 kg
[~2017-08-31 10:09] MED LIST changes: +DULA0.75 SQ; +FLUT1AER IH; +ISOS30TA4 PO; +NICO1PAT21 TP; +QUET25TA5 PO
[2017-08-31] MEDS ORDERED: IV NORMAL SALINE 1,000ML 1,000 ML IV SCH (10:22)
[2017-08-31 10:35] LABS: HEMOGLOBIN ISTAT 13.9 gm/dL
--- NOTE | 2017-08-31 10:40 | RAD ---
EXAM: CT head without contrast. HISTORY: Left-sided weakness and slurred speech. TECHNIQUE: Computed tomography of the head was performed without intravenous contrast. COMPARISON: None. FINDINGS: There is no intracranial hemorrhage. Woodruff-white differentiation is preserved. The ventricles are normal in size and position. The visualized paranasal sinuses appear clear. The orbits are unremarkable. The temporal bones are unremarkable. The calvarium reveals no suspicious lesions. IMPRESSION: 1. No acute intracranial findings. These findings were called to Dr. Stephenson by Tirso Conner on 08/31/2017 at 10:30. *One or more of the following individualized dose reduction techniques were utilized for this examination: 1. Automated exposure control. 2. Adjustment of the mA and/or kV according to patient size. 3. Use of iterative reconstruction technique.
[2017-08-31 10:42] LABS: BASO # 0.1 x10^3/uL (0.0-0.2); BASO % 1 % (0-3); EOS # 0.2 x10^3/uL (0.0-0.7); EOS % 2 % (0-3); HEMATOCRIT 41.3 % (36.0-47.0); HEMOGLOBIN 14.1 g/dL (12.0-15.5); LYMPH # 1.9 x10^3/uL (1.0-4.8); LYMPH % 24 % (24-48); MEAN CORPUSCULAR HEMOGLOBIN 32 pg (25-35); MEAN CORPUSCULAR HGB CONC 34 g/dL (31-37); MEAN CORPUSCULAR VOLUME 95 fL (79-100); MONO # 0.6 x10^3/uL (0.0-1.1); MONO % 7 % (0-9); NEUT # 5.4 x10^3uL (1.8-7.7); NEUT % 66 % (31-73); PLATELET COUNT 305 x10^3/uL (140-400); RED BLOOD COUNT 4.34 x10^6/uL (3.50-5.40); RED CELL DISTRIBUTION WIDTH 13.7 % (11.5-14.5); WHITE BLOOD COUNT 8.1 x10^3/uL (4.0-11.0)
--- NOTE | 2017-08-31 10:44 | PHYS DOC ---
Past History Past Medical History: COPD, CVA, Diabetes, GERD, High Cholesterol, Seizure, Other Past Surgical History: Cholecystectomy, Hysterectomy, Knee Replacement, Other Alcohol Use: Occasionally Drug Use: Marijuana Adult General Chief Complaint Chief Complaint: NEURO SYMPTOMS/DEFICITS HPI HPI 47-year-old female presenting to the emergency department today with weakness in her left upper and left lower extremity associated with facial drooping of the left side of the face with slurred speech. Her is here with her today. She has a history of high blood pressure and type 2 diabetes. Her is here with her today and explains that she has been having facial asymmetry intermittently since Sunday. They thought that she maybe had a "puffy face". He states that her symptoms resolved and came and go intermittently since Sunday. Last night at 7 PM the patient was back to normal. Upon wakening the patient has had symptoms that she presents with. Location brain. Duration intermittent. No alleviating or exacerbating factors. Review of systems is negative for fevers neck stiffness chest pain shortness of breath abdominal pain nausea or vomiting. All other review of systems is negative unless otherwise noted in history of present illness. ED course: 47-year-old female presenting to the emergency department with strokelike symptoms. The patient was better immediately. A timeline was constructed which shows the patient's last known normal to be greater than 12 hours. Patient does not qualify for TPA because of the patient's timeline. Patient does not qualify for mechanical thrombectomy because the patient's symptoms have been present for greater than 12 hours. Blood sugar within normal limits. EKG obtained. Head CT obtained along with blood work and urinalysis. I discussed the case with Dr. Clemons our neurologist at [[phone]] who agrees with this plan of care. He then asked that I discussed the case with the neurologist at [facility] as the patient will likely need an MRI in to be transferred. CT angiogram shows possible aneurysm. The patient was then transferred to the [facility] for further evaluation workup and care. Review of Systems Review of Systems SEE ABOVE. Current Medications Current Medications Current Medications Medications (Trade) Dose Ordered Sig/Indira Start Time Stop Time Status Last Admin Dose Admin Sodium Chloride 1,000 ml @ 100 mls/hr Q10H 08/31/17 10:22 08/31/17 20:21 UNV Allergies Allergies Allergies Coded Allergies Type Severity Reaction Last Updated Verified aspirin Allergy Severe Shortness of Air 01/05/17 Yes adhesive tape Allergy Intermediate 05/23/17 Yes chlordiazepoxide Allergy Intermediate Swelling 05/23/17 Yes clidinium Allergy Intermediate Swelling 05/23/17 Yes erythromycin base Allergy Intermediate Hives 01/05/17 Yes fentanyl Allergy Intermediate 05/23/17 Yes ibuprofen Allergy Intermediate Hives 01/05/17 Yes morphine Allergy Intermediate Swelling 05/23/17 Yes Physical Exam Physical Exam SEE ABOVE Constitutional: Well developed, well nourished, no acute distress, non-toxic appearance. HENT: Normocephalic, atraumatic, bilateral external ears normal, oropharynx moist, no oral exudates, nose normal. [] Eyes: PERRLA, EOMI, conjunctiva normal, no discharge. Neck: Normal range of motion, no tenderness, supple, no stridor. [] Cardiovascular:Heart rate regular rhythm, no murmur Lungs & Thorax: Bilateral breath sounds clear to auscultation [] Abdomen: Bowel sounds normal, soft, no tenderness, no masses, no pulsatile masses. Skin: Warm, dry, no erythema, no rash. [] Back: No tenderness, no CVA tenderness. Extremities: No tenderness, no cyanosis, no clubbing, ROM intact, no edema. [] Neurologic: Mental status: Awake oriented to person and alert Cranial nerves: Extraocular movements intact, facial droop on the left, uvula elevation symmetric, shoulder shrug intact, tongue protrusion normal DTRs: 2+ Sensation: equal and normal in all extremities Strength: 5/5 in upper and lower extremities bilaterally Psychologic: Affect normal, judgement normal, mood normal. EKG EKG [] Radiology/Procedures Radiology/Procedures [] Course & Med Decision Making Course & Med Decision Making Pertinent Labs and Imaging studies reviewed. (See chart for details) [] Dragon Disclaimer Dragon Disclaimer This electronic medical record was generated, in whole or in part, using a voice recognition dictation system. Departure Departure: Impression: Primary Impression: Stroke-like symptoms Disposition: [facility]-TRM HOSP Condition: STABLE Referrals: ELI PROCTOR MD (PCP) REYNA SILVA MD Aug 31, 2017 10:44
[2017-08-31 10:55] LABS: PREG TEST PT QUAL NEGATIVE (NEG)
[2017-08-31 10:56] LABS: ALBUMIN 3.3 g/dL (3.4-5.0); TOTAL BILIRUBIN 0.1 mg/dL (0.2-1.0); TOTAL PROTEIN 6.4 g/dL (6.4-8.2)
[2017-08-31] MEDS ORDERED: IOHEXOL 300 MG/ML 75 ML VIAL. IV ONE (11:00)
[2017-08-31 11:09] LABS: DIRECT BILIRUBIN 0.1 mg/dL (0.0-0.2)
[2017-08-31 11:10] LABS: BARBITURATES NEG (NEG); BENZODIAZEPINES NEG (NEG); CANNABINOIDS NEG (NEG); COCAINE NEG (NEG); METHADONE NEG (NEG); OPIATES NEG (NEG); PHENCYCLIDINE NEG (NEG)
[2017-08-31 11:11] LABS: AMPHETAMINE/METHAMPHETAMINE NEG (NEG)
[2017-08-31 11:14] LABS: AMORPHOUS SEDIMENT,UR PRESENT /HPF; BACTERIA,URINE FEW /HPF (0-FEW); BILIRUBIN,URINE NEG (NEG); CLARITY,URINE CLOUDY; COLOR,URINE YELLOW; GLUCOSE,URINE NEG (NEG); NITRITE,URINE NEG (NEG); RBC,URINE RARE /HPF (0-2); SQUAMOUS EPITHELIAL CELL,UR MOD /LPF; UROBILINOGEN,URINE 1 mg/dL (0.2 mg/dL); WBC,URINE OCC /HPF (0-4)
[2017-08-31 11:37] VITALS: BP 146/76
[2017-08-31] MEDS ORDERED: ONDANSETRON ODT 4 MG TAB.RAPDIS PO ONE (12:00)
[2017-08-31] MEDS ORDERED: HYDROmorphone PF 1 MG/ML DISP.SYRIN IV ONE (12:00)
--- NOTE | 2017-08-31 12:05 | RAD ---
EXAM: CTA head and neck with and without contrast. HISTORY: Left-sided weakness, slurred speech. TECHNIQUE: CTA of the head and neck was performed before and after the intravenous administration of iodinated contrast. Three-dimensional reconstructions were also performed. COMPARISON: 08/31/2017. FINDINGS: Bone windows reveal instrumented anterior cervical discectomy and fusion from C4 through C6. There are changes of bilateral cataract surgery. The temporal bones and paranasal sinuses are unremarkable. The thyroid gland, submandibular glands and parotid glands are unremarkable. There is no clear laryngeal or pharyngeal lesions. There are no pathologically enlarged lymph nodes. No enhancing brain lesions are seen by this technique. Woodruff-white differentiation appears preserved. The ventricles are normal in size and position. There is a normal-appearing common origin of the left common carotid and brachiocephalic arteries. There is no arch vessel stenosis. The common carotid arteries are patent without stenosis. Both cervical internal carotid arteries are patent without stenosis. The external carotid systems are patent. There appears to be a 6 x 5 mm aneurysm arising from the lateral aspect of the left cavernous internal carotid arteries. This is favored over venous contamination. Another aneurysm is suspected along the medial aspect of the right cavernous internal carotid arteries measuring 3 mm. There is no clear intracranial internal carotid artery stenosis. The MCAs and anterior cerebral arteries are patent. Both vertebral arteries are patent. The basilar artery is patent. IMPRESSION: 1. 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 Another 3 mm aneurysm is suspected along the medial aspect of the right cavernous internal carotid artery. MRA is recommended to further confirm this when MRI is performed. 2. No clear arterial stenosis. These findings were called to Dr. Stephenson by Tirso Conner on 08/31/2017 at 1150. One or more of the following individualized dose reduction techniques were utilized for this examination: 1. Automated exposure control. 2. Adjustment of the mA and/or kV according to patient size. 3. Use of iterative reconstruction technique. PQRS Compliance Statement - Stenosis calculations for CT, MR and conventional angiography are based upon measurement of the distal ICA diameter in accordance with the NASCET methodology. Stenosis calculations for carotid ultrasound studies are derived from validated velocity criteria which are known to correlate with the NASCET methodology.
== END 2017-08-31 13:40 | disposition short-term general hospital (02) ==
LOC: ER 10:09
DX: R53.1 Weakness (principal); R29.810 Facial weakness; R47.81 Slurred speech; E11.9 Type 2 diabetes mellitus without complications; E78.00 Pure hypercholesterolemia, unspecified; J44.9 Chronic obstructive pulmonary disease, unspecified; K21.9 Gastro-esophageal reflux disease without esophagitis; F12.10 Cannabis abuse, uncomplicated; Z86.73 Personal history of transient ischemic attack (TIA), and cerebral infarction without residual deficits; Z88.6 Allergy status to analgesic agent; Z88.1 Allergy status to other antibiotic agents; Z88.5 Allergy status to narcotic agent; Z88.8 Allergy status to other drugs, medicaments and biological substances
CPT/HCPCS: 36415; 70450; 70496; 70498; 80047; 80076; 80307; 81001; 82947; 84484; 84703; 85025; 85610; 85730; 96361; 96374; 99285; J1170; Q0162; Q9967; G0479; J7030

== ENCOUNTER 2017-09-21 10:07 | Emergency (ER) | payer OTHER ==
[~2017-09-21] VITALS: Ht 157.5 cm; Wt 97.5 kg
--- NOTE | 2017-09-21 10:36 | RAD ---
CT HEAD WITHOUT [id number]/15/2017 12:17 PM Indication: confusion Comparison: CT of the head without contrast August 31, 2017 Procedure: Multidetector CT imaging of the head was performed without the administration of contrast. Findings: There is no evidence of acute intracranial hemorrhage. There is no evidence of acute territorial infarction. Please note that CT is limited for evaluation of acute ischemia. MRI offers more sensitive evaluation as clinically indicated. No mass effect or midline shift is identified . The ventricles and basilar cisterns have an appropriate appearance. No abnormal extra-axial fluid collections are seen. No acute osseous changes are identified. Impression: No evidence of acute intracranial abnormality or acute change from prior exam PQRS Compliance Statement: One or more of the following individualized dose reduction techniques were utilized for this examination: 1. Automated exposure control 2. Adjustment of the mA and/or kV according to patient size 3. Use of iterative reconstruction technique
--- NOTE | 2017-09-21 10:37 | RAD ---
Portable chest, 09/21/2017: History: Confusion Comparison is made to a study from 05/22/2017. The heart size and pulmonary vascularity are normal. No pulmonary infiltrate is seen. There is no evidence of pleural fluid. A surgical plate and screws is evident in the lower cervical spine. IMPRESSION: No acute cardiopulmonary abnormality is detected.
[2017-09-21 10:47] LABS: BASO # 0.1 x10^3/uL (0.0-0.2); BASO % 1 % (0-3); EOS # 0.1 x10^3/uL (0.0-0.7); EOS % 1 % (0-3); HEMATOCRIT 39.6 % (36.0-47.0); HEMOGLOBIN 13.6 g/dL (12.0-15.5); LYMPH # 1.9 x10^3/uL (1.0-4.8); LYMPH % 17 % (24-48); MEAN CORPUSCULAR HEMOGLOBIN 32 pg (25-35); MEAN CORPUSCULAR HGB CONC 34 g/dL (31-37); MEAN CORPUSCULAR VOLUME 95 fL (79-100); MONO % 9 % (0-9); NEUT # 8.1 x10^3uL (1.8-7.7); NEUT % 72 % (31-73); PLATELET COUNT 383 x10^3/uL (140-400); RED BLOOD COUNT 4.19 x10^6/uL (3.50-5.40); WHITE BLOOD COUNT 11.2 x10^3/uL (4.0-11.0)
[2017-09-21 11:05] LABS: ALBUMIN 3.6 g/dL (3.4-5.0); ALBUMIN/GLOBULIN RATIO 1.1 (1.0-1.7); CALCIUM 9.4 mg/dL (8.5-10.1); CREATININE 0.7 mg/dL (0.6-1.0); GFR 88.9; POTASSIUM 4.2 mmol/L (3.5-5.1); TOTAL BILIRUBIN 0.2 mg/dL (0.2-1.0)
[2017-09-21 11:09] LABS: BARBITURATES NEG (NEG); BENZODIAZEPINES NEG (NEG); CANNABINOIDS POS (NEG); COCAINE NEG (NEG); METHADONE NEG (NEG); OPIATES POS (NEG); PHENCYCLIDINE NEG (NEG)
[2017-09-21 11:12] LABS: AMPHETAMINE/METHAMPHETAMINE NEG (NEG)
[2017-09-21] MEDS ORDERED: ONDANSETRON PF 4 MG/2 ML VIAL. IV ONE (11:15)
[2017-09-21] MEDS ORDERED: HYDROmorphone PF 1 MG/ML DISP.SYRIN IV ONE (11:15)
[2017-09-21 11:18] LABS: BACTERIA,URINE 0 /HPF (0-FEW); BILIRUBIN,URINE NEG (NEG); CLARITY,URINE CLEAR; COLOR,URINE YELLOW; GLUCOSE,URINE NEG (NEG); NITRITE,URINE NEG (NEG); RBC,URINE RARE /HPF (0-2); SQUAMOUS EPITHELIAL CELL,UR FEW /LPF; UROBILINOGEN,URINE 0.2 mg/dL (0.2 mg/dL); WBC,URINE OCC /HPF (0-4)
[2017-09-21 11:29] VITALS: BP 105/61
--- NOTE | 2017-09-21 11:41 | EKG ---
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
--- NOTE | 2017-09-21 11:43 | PHYS DOC ---
Past History Past Medical History: COPD, CVA, Diabetes, GERD, High Cholesterol, Seizure Past Surgical History: Cholecystectomy, Hysterectomy, Knee Replacement Smoking: Cigarettes, Greater than 1 pack/day Alcohol Use: Occasionally Drug Use: Marijuana Adult General Chief Complaint Chief Complaint: HEADACHE HPI HPI 47-year-old male patient with history of percent CVA and left-sided weakness complaining of headache in the occipital area with radiation to left side of her forehead was different than her usual headache that radiated to right side of her forehead. The pain started yesterday at 1800 as a constant and throbbing pain and associated with nausea without fever and chills and focal neurodeficit and blurred vision. Patient rated her pain 9/10. Patient states she developed some confusion around 2100 and reported when he 10 from work at 2200 she had confusion and complaining of headache. Patient states she gets episodes of confusion with headache at this morning she still had some confusion that was better than last night. Review of Systems Review of Systems Constitutional: Denies fever or chills [] Eyes: Denies change in visual acuity, redness, or eye pain [] HENT: Denies nasal congestion or sore throat [] Respiratory: Denies cough or shortness of breath [] Cardiovascular: No additional information not addressed in HPI [] GI: Denies abdominal pain, nausea, vomiting, bloody stools or diarrhea [] : Denies dysuria or hematuria [] Musculoskeletal: Denies back pain or joint pain [] Integument: Denies rash or skin lesions [] Neurologic: Reports headache, denies new focal weakness or sensory changes [] Endocrine: Denies polyuria or polydipsia [] All other systems were reviewed and found to be within normal limits, except as documented in this note. Current Medications Current Medications Current Medications Medications (Trade) Dose Ordered Sig/Indira Start Time Stop Time Status Last Admin Dose Admin Hydromorphone HCl (Dilaudid) 1 mg 1X ONCE 09/21/17 11:15 09/21/17 11:16 DC 09/21/17 11:01 1 MG Ondansetron HCl (Zofran) 4 mg 1X ONCE 09/21/17 11:15 09/21/17 11:16 DC 09/21/17 10:58 4 MG Allergies Allergies Allergies Coded Allergies Type Severity Reaction Last Updated Verified aspirin Allergy Severe Shortness of Air 01/05/17 Yes adhesive tape Allergy Intermediate 05/23/17 Yes chlordiazepoxide Allergy Intermediate Swelling 05/23/17 Yes clidinium Allergy Intermediate Swelling 05/23/17 Yes erythromycin base Allergy Intermediate Hives 01/05/17 Yes fentanyl Allergy Intermediate 05/23/17 Yes ibuprofen Allergy Intermediate Hives 01/05/17 Yes morphine Allergy Intermediate Swelling 05/23/17 Yes Physical Exam Physical Exam Constitutional: Well nourished, mild distress, anxious ,non-toxic appearance. [] HENT: Normocephalic, atraumatic, bilateral external ears normal, oropharynx moist, no oral exudates, nose normal. [] Eyes: PERRLA, EOMI, conjunctiva normal, no discharge. [] Neck: Normal range of motion, no tenderness, supple, no stridor. [] Cardiovascular:Heart rate regular rhythm, no murmur [] Lungs & Thorax: Bilateral breath sounds clear to auscultation [] Abdomen: Bowel sounds normal, soft, no tenderness, no masses, no pulsatile masses. [] Skin: Warm, dry, no erythema, no rash. [] Back: No tenderness, no CVA tenderness. [] Extremities: No tenderness, no cyanosis, no clubbing, ROM intact, no edema. [] Neurologic: Alert and oriented X 3, left facial and upper and lower extremity weakness like her previous weakness without new change Psychologic: Affect normal, judgement normal, mood normal. [] Current Patient Data Vital Signs Vital Signs Date Time Temp Pulse Resp B/P (MAP) Pulse Ox O2 Delivery O2 Flow Rate FiO2 09/21/17 11:01 16 95 Room Air Lab Results Laboratory Tests Test 09/21/17 10:16 09/21/17 10:32 09/21/17 10:45 Glucose (Fingerstick) 116 mg/dL (70-99) H White Blood Count 11.2 x10^3/uL (4.0-11.0) H Red Blood Count 4.19 x10^6/uL (3.50-5.40) Hemoglobin 13.6 g/dL (12.0-15.5) Hematocrit 39.6 % (36.0-47.0) Mean Corpuscular Volume 95 fL (79-100) Mean Corpuscular Hemoglobin 32 pg (25-35) Mean Corpuscular Hemoglobin Concent 34 g/dL (31-37) Red Cell Distribution Width 14.0 % (11.5-14.5) Platelet Count 383 x10^3/uL (140-400) Neutrophils (%) (Auto) 72 % (31-73) Lymphocytes (%) (Auto) 17 % (24-48) L Monocytes (%) (Auto) 9 % (0-9) Eosinophils (%) (Auto) 1 % (0-3) Basophils (%) (Auto) 1 % (0-3) Neutrophils # (Auto) 8.1 x10^3uL (1.8-7.7) H Lymphocytes # (Auto) 1.9 x10^3/uL (1.0-4.8) Monocytes # (Auto) 1.0 x10^3/uL (0.0-1.1) Eosinophils # (Auto) 0.1 x10^3/uL (0.0-0.7) Basophils # (Auto) 0.1 x10^3/uL (0.0-0.2) Prothrombin Time 9.9 SEC (9.4-11.4) Prothrombin Time INR 1.0 (0.9-1.1) PTT 24 SEC (23-33) Sodium Level 134 mmol/L (136-145) L Potassium Level 4.2 mmol/L (3.5-5.1) Chloride Level 99 mmol/L (98-107) Carbon Dioxide Level 24 mmol/L (21-32) Anion Gap 11 (6-14) Blood Urea Nitrogen 19 mg/dL (7-20) Creatinine 0.7 mg/dL (0.6-1.0) Estimated GFR (Cockcroft-Gault) 88.9 BUN/Creatinine Ratio 27 (6-20) H Glucose Level 117 mg/dL (70-99) H Calcium Level 9.4 mg/dL (8.5-10.1) Total Bilirubin 0.2 mg/dL (0.2-1.0) Aspartate Amino Transferase (AST) 11 U/L (15-37) L Alanine Aminotransferase (ALT) 23 U/L (14-59) Alkaline Phosphatase 144 U/L (46-116) H Total Protein 7.0 g/dL (6.4-8.2) Albumin 3.6 g/dL (3.4-5.0) Albumin/Globulin Ratio 1.1 (1.0-1.7) Urine Collection Type Unknown Urine Color Yellow Urine Clarity Clear Urine pH 5.0 Urine Specific [place] 1.025 Urine Protein Neg (NEG-TRACE) Urine Glucose (UA) Neg mg/dL (NEG) Urine Ketones (Stick) Neg mg/dL (NEG) Urine Blood Trace (NEG) Urine Nitrite Neg (NEG) Urine Bilirubin Neg (NEG) Urine Urobilinogen Dipstick 0.2 mg/dL (0.2 mg/dL) Urine Leukocyte Esterase Neg (NEG) Urine RBC Rare /HPF (0-2) Urine WBC Occ /HPF (0-4) Urine Squamous Epithelial Cells Few /LPF Urine Bacteria 0 /HPF (0-FEW) Urine Opiates Screen Pos (NEG) Urine Methadone Screen Neg (NEG) Urine Barbiturates Neg (NEG) Urine Phencyclidine Screen Neg (NEG) Urine Amphetamine/Methamphetamine Neg (NEG) Urine Benzodiazepines Screen Neg (NEG) Urine Cocaine Screen Neg (NEG) Urine Cannabinoids Screen Pos (NEG) Urine Ethyl Alcohol Neg (NEG) EKG EKG EKG interpreted by me. EKG at 1036 showed normal sinus rhythm at rate of 69, right ventricular hypertrophy, Q waves in anterolateral lateral leads[] Radiology/Procedures Radiology/Procedures [CT and chest x-ray was unremarkable.] Course & Med Decision Making Course & Med Decision Making Pertinent Labs and Imaging studies reviewed. (See chart for details) Admission of patient in ER showed 47-year-old female patient with history of recent CVA and left-sided weakness and myalgia and headache complaining of headache since last night with episodes of confusion. Patient had unremarkable CT of head and and treated with pain medication and her headache improved and was not confused anymore. house calls nurse practitioner neurology Dr. Arreaga was consulted and recommended patient follow-up with his office at 12:30 today. Patient instructed about plan of care and needs to follow up with neurologist. Code stroke was not activated because patient did not have new neurodeficit and the time of starting symptom was more than 12 hours ago. [] Dragon Disclaimer Dragon Disclaimer This electronic medical record was generated, in whole or in part, using a voice recognition dictation system. Departure Departure: Impression: Primary Impression: Migraine headache with aura Additional Impressions: Tobacco abuse Tobacco abuse counseling History of CVA (cerebrovascular accident) Left-sided weakness Disposition: 01 HOME, SELF-CARE (At 1139) Condition: IMPROVED Referrals: ELI PROCTOR MD (PCP) KENDRA ARREAGA MD Follow-up with Dr. Arreaga at 12:30 today Patient Instructions: Migraine Headache Additional Instructions: Follow-up with neurology Dr Arreaga today at 12:30 Follow-up with your neurologist Quit smoking Problem Qualifiers LUISITO MORGAN MD Sep 21, 2017 11:43
== END 2017-09-21 11:47 | disposition home or self-care (01) ==
LOC: ER 10:07
DX: G43.109 Migraine with aura, not intractable, without status migrainosus (principal); R53.1 Weakness; J44.9 Chronic obstructive pulmonary disease, unspecified; K21.9 Gastro-esophageal reflux disease without esophagitis; E11.9 Type 2 diabetes mellitus without complications; E78.00 Pure hypercholesterolemia, unspecified; Z86.73 Personal history of transient ischemic attack (TIA), and cerebral infarction without residual deficits; F17.210 Nicotine dependence, cigarettes, uncomplicated; F12.10 Cannabis abuse, uncomplicated; Z88.6 Allergy status to analgesic agent; Z88.5 Allergy status to narcotic agent; Z88.1 Allergy status to other antibiotic agents; Z88.4 Allergy status to anesthetic agent; Z88.8 Allergy status to other drugs, medicaments and biological substances
CPT/HCPCS: 36415; 70450; 71010; 80053; 80307; 81001; 82947; 85025; 85610; 85730; 93005; 96374; 96375; 99285; J1170; J2405; G0479

== ENCOUNTER 2017-11-16 08:32 | Emergency (ER) | payer OTHER ==
[~2017-11-16] VITALS: Ht 157.5 cm; Wt 93.0 kg
[2017-11-16] MEDS ORDERED: IV NORMAL SALINE 1,000ML 1,000 ML IV SCH (09:03)
[2017-11-16] MEDS ORDERED: PROMETHAZINE 25 MG in IV NORMAL SALINE 50ML 50 ML IV PRN (09:15)
[2017-11-16] MEDS ORDERED: IV NORMAL SALINE 50ML 50 ML ONE (09:21)
[2017-11-16] MEDS ORDERED: PROMETHAZINE 25 MG/ML VIAL IV ONE (09:21)
[2017-11-16 09:28] LABS: BASO # 0.1 x10^3/uL (0.0-0.2); BASO % 1 % (0-3); EOS # 0.1 x10^3/uL (0.0-0.7); EOS % 1 % (0-3); HEMATOCRIT 40.5 % (36.0-47.0); HEMOGLOBIN 14.1 g/dL (12.0-15.5); LYMPH # 1.9 x10^3/uL (1.0-4.8); LYMPH % 22 % (24-48); MEAN CORPUSCULAR HEMOGLOBIN 32 pg (25-35); MEAN CORPUSCULAR HGB CONC 35 g/dL (31-37); MEAN CORPUSCULAR VOLUME 92 fL (79-100); MONO # 0.7 x10^3/uL (0.0-1.1); MONO % 8 % (0-9); NEUT % 69 % (31-73); PLATELET COUNT 373 x10^3/uL (140-400); RED CELL DISTRIBUTION WIDTH 13.4 % (11.5-14.5); WHITE BLOOD COUNT 8.7 x10^3/uL (4.0-11.0)
[2017-11-16] MEDS ORDERED: HYDROmorphone PF 1 MG/ML DISP.SYRIN IV ONE (09:30)
[2017-11-16] MEDS ORDERED: ONDANSETRON PF 4 MG/2 ML VIAL. IV ONE (09:30)
--- NOTE | 2017-11-16 09:38 | PHYS DOC ---
General Chief Complaint: NAUSEA/VOMITING/DIARRHEA Stated Complaint: HEADACHE,N/V,CONFUSED Time Seen by MD: 08:34 Source: patient, family, old records Exam Limitations: no limitations Problems: History of Present Illness Initial Comments Patient is a 47-year-old female who comes to the ED complaining of headache. Patient states that last night some time she developed nausea vomiting diarrhea and severe headache. Headache is described as global and throbbing and severe, she has photophobia and says she's had some confusion. She took an extra Dilaudid 4 mg by mouth prior to coming in. Headache is worse with standing and activity better with lying down. NIH stroke scale is 0 Timing/Duration: constant, other ("sometime last night") Severity: severe Modifying Factors: worse with movement, improves with rest Allergies: Coded Allergies: aspirin (Verified Allergy, Severe, Shortness of Air, 01/05/17) adhesive tape (Verified Allergy, Intermediate, 05/23/17) chlordiazepoxide (Verified Allergy, Intermediate, Swelling, 05/23/17) clidinium (Verified Allergy, Intermediate, Swelling, 05/23/17) erythromycin base (Verified Allergy, Intermediate, Hives, 01/05/17) fentanyl (Verified Allergy, Intermediate, 05/23/17) ibuprofen (Verified Allergy, Intermediate, Hives, 01/05/17) morphine (Verified Allergy, Intermediate, Swelling, 05/23/17) Past Medical History Medical History: other (COPD, CVA, diabetes, GERD, hyperlipidemia, seizure, TIA , aneurysm, chronic pain, long-term opiate dependence) Surgical History: other (cholecystectomy, hysterectomy, total knee replacement) Social History Smoker: greater than 1 pack/day Alcohol: occasionally Drugs: marijuana Review of Systems Constitutional: denies chills, denies fever, malaise EENTM: blurred vision, denies ear pain, denies nose pain, denies throat pain Respiratory: denies cough, denies shortness of breath, denies wheezing Cardiovascular: denies chest pain, denies palpitations, denies syncope Gastrointestinal: abdominal pain, diarrhea, nausea, vomiting Genitourinary: other (decreased urination) Musculoskeletal: see HPI Psychiatric/Neurological: see HPI Physical Exam General Appearance: no apparent distress (nauseous) Eyes: bilateral eye PERRL, bilateral eye EOMI, bilateral eye photophobia Ear, Nose, Throat: hearing grossly normal, normal ENT inspection, normal pharynx (dry membranes) Neck: non-tender, supple Respiratory: normal breath sounds, no respiratory distress Cardiovascular: normal peripheral pulses, regular rate, rhythm Gastrointestinal: normal bowel sounds, soft (nondistended negative Go negative McBurney generalized muscle tenderness without focality no rebound guarding or masses) Back: no CVA tenderness, no vertebral tenderness Extremities: non-tender, normal inspection Neurologic/Psychiatric: hearing care practitioner II-XII nml as tested, no motor/sensory deficits, alert, normal mood/affect, oriented x 3 Skin: pallor (poor turgor) Orders, Labs, Meds PATIENT: RAFAEL VANCE ACCOUNT: [id number] : 1970 LOCATION: ER AGE: 47 SEX: F EXAM STATUS: REG ER ORD. PHYSICIAN: SHARMAINE JOLLY DO REASON: headache h/o aneurysm PROCEDURE: CT HEAD WO CONTRAST PQRS Compliance Statement: One or more of the following individualized dose reduction techniques were utilized for this examination: 1. Automated exposure control 2. Adjustment of the mA and/or kV according to patient size 3. Use of iterative reconstruction technique CT HEAD WITHOUT CONTRAST History: HEADACHE AND SENSITIVITY TO LIGHT Comparison: None available. Procedure: Axial images are obtained of the head from the skull base through the vertex without IV contrast. Findings: The ventricles and sulci are normal for the patient's age. No mass-effect, midline shift, hemorrhage, extra-axial fluid collection, or obvious acute infarction is identified. Basilar cisterns are patent. Bone windows demonstrate no acute calvarial abnormality. The visualized paranasal sinuses are clear. Mastoid air cells are well aerated. IMPRESSION: No acute intracranial abnormality. Electronically signed by: Arnoldo Max MD (11/16/2017 9:33 AM) [id number] DICTATED AND SIGNED BY: ARNOLDO MAX MD DATE: 11/16/17929 CC: ELI PROCTOR MD; SHARMAINE JOLLY DO ~ 1053: Pertinent labs: Sodium 131, BUN 20, creatinine 0.8, urine drug screen positive for opiates and marijuana. I rechecked the patient she's feeling much better with medications and 1 L normal saline IV bolus. She is requesting discharge home and agrees to increase her fluid intake. I discussed oral hydration smoking cessation prescription and [id number] medications. Signs and symptoms to monitor for as well as indications for urgent return to the department were discussed in her questions were answered. She expressed agreement and understanding with the treatment plan. I encouraged her to follow- up with eye doctor retina specialist as scheduled. Impressions: Headache Hypovolemia Hyponatremia Nausea vomiting and diarrhea likely gastroenteritis Tobaccoism Marijuana abuse Chronic opiate dependence Departure Time of Disposition: 10:28 Disposition: 01 HOME, SELF-CARE Diagnosis: headache, hypovolemic hyponatremia, tobaccoism Condition: IMPROVED Patient Instructions: Dehydration, Adult, [id number], Hyponatremia, Easy-to- Read Additional Instructions: Please review the patient education materials given by ED staff. Stop smoking seek medical assistance if necessary. Increase fluid intake as discussed. Continue current medications. Follow-up with your doctor in 3 days for recheck. Return to ED with new or changing symptoms. SHARMAINE JOLLY DO Nov 16, 2017 09:38
[2017-11-16 09:41] LABS: CALCIUM 9.9 mg/dL (8.5-10.1); CREATININE 0.8 mg/dL (0.6-1.0); GFR 76.2; POTASSIUM 4.1 mmol/L (3.5-5.1)
[2017-11-16 10:20] LABS: AMPHETAMINE/METHAMPHETAMINE NEG (NEG); BARBITURATES NEG (NEG); BENZODIAZEPINES NEG (NEG); CANNABINOIDS POS (NEG); COCAINE NEG (NEG); METHADONE NEG (NEG); OPIATES POS (NEG); PHENCYCLIDINE NEG (NEG)
[2017-11-16 10:24] LABS: AMORPHOUS SEDIMENT,UR PRESENT /HPF; BACTERIA,URINE 0 /HPF (0-FEW); BILIRUBIN,URINE NEG (NEG); CLARITY,URINE HAZY; COLOR,URINE AMBER; GLUCOSE,URINE NEG (NEG); HYALINE CASTS, URINE OCC /HPF; NITRITE,URINE NEG (NEG); RBC,URINE 0 /HPF (0-2); SQUAMOUS EPITHELIAL CELL,UR MOD /LPF; UROBILINOGEN,URINE 0.2 mg/dL (0.2 mg/dL); WBC,URINE 0 /HPF (0-4)
[2017-11-16 10:47] VITALS: BP 107/67
== END 2017-11-16 10:51 | disposition home or self-care (01) ==
LOC: ER 08:32
DX: R51 Headache (principal); E86.1 Hypovolemia; E87.1 Hypo-osmolality and hyponatremia; R11.2 Nausea with vomiting, unspecified; R19.7 Diarrhea, unspecified; F12.10 Cannabis abuse, uncomplicated; F11.20 Opioid dependence, uncomplicated; J44.9 Chronic obstructive pulmonary disease, unspecified; E11.9 Type 2 diabetes mellitus without complications; K21.9 Gastro-esophageal reflux disease without esophagitis; E78.5 Hyperlipidemia, unspecified; G89.29 Other chronic pain; Z86.73 Personal history of transient ischemic attack (TIA), and cerebral infarction without residual deficits; F17.200 Nicotine dependence, unspecified, uncomplicated; Z88.6 Allergy status to analgesic agent; Z88.8 Allergy status to other drugs, medicaments and biological substances; Z88.5 Allergy status to narcotic agent; Z88.1 Allergy status to other antibiotic agents
CPT/HCPCS: 36415; 70450; 80048; 80307; 81001; 82550; 84484; 85025; 96365; 96375; 99285; J1170; J2405; J2550; G0479; J7030

== ENCOUNTER 2017-12-31 14:44 | Emergency (ER) | payer OTHER ==
[~2017-12-31] VITALS: Ht 157.5 cm; Wt 99.8 kg
[2017-12-31] MEDS ORDERED: ORPHENADRINE CITRATE 60 MG/2 ML VIAL. IM ONE (15:15)
[2017-12-31 15:22] LABS: BASO % 0 % (0-3); EOS % 0 % (0-3); HEMATOCRIT 39.9 % (36.0-47.0); LYMPH % 6 % (24-48); MEAN CORPUSCULAR HEMOGLOBIN 30 pg (25-35); MEAN CORPUSCULAR HGB CONC 33 g/dL (31-37); MEAN CORPUSCULAR VOLUME 92 fL (79-100); MONO # 1.7 x10^3/uL (0.0-1.1); MONO % 10 % (0-9); NEUT # 14.1 x10^3uL (1.8-7.7); NEUT % 84 % (31-73); PLATELET COUNT 331 x10^3/uL (140-400); RED BLOOD COUNT 4.35 x10^6/uL (3.50-5.40); RED CELL DISTRIBUTION WIDTH 14.2 % (11.5-14.5); WHITE BLOOD COUNT 16.9 x10^3/uL (4.0-11.0)
[2017-12-31 15:32] LABS: ALBUMIN 3.6 g/dL (3.4-5.0); ALBUMIN/GLOBULIN RATIO 1.1 (1.0-1.7); CALCIUM 9.3 mg/dL (8.5-10.1); CREATININE 0.7 mg/dL (0.6-1.0); GFR 88.9; TOTAL BILIRUBIN 0.3 mg/dL (0.2-1.0)
--- NOTE | 2017-12-31 15:34 | RAD ---
3 views of each knee 12/31/2017 5:03 PM Indication: pain Comparison: None Findings: Bilateral total knee arthroplasty is noted. No evidence of fracture or dislocation is seen. No changes are loosening are identified. Bilateral joint effusions appear to be present. Impression: 1. Bilateral knee joint effusion 2. Bilateral total knee arthroplasty without other evidence of acute osseous abnormality
[2017-12-31 15:47] LABS: % BANDS 3 % (0-9); % EOS 1 % (0-5); % LYMPHS 7 % (24-48); % MONOS 7 % (0-10); % SEGS 81 % (35-66)
[2017-12-31 15:48] LABS: PLT ESTIMATE ADEQUATE (ADEQUATE)
--- NOTE | 2017-12-31 15:52 | RAD ---
Bilateral lower extremity venous ultrasound, 12/31/2017: History: Bilateral leg pain and swelling Duplex evaluation of the deep veins in the lower extremities was performed including grayscale, color-flow and spectral Doppler analysis. The femoral and popliteal veins demonstrate normal compressibility and normal responses to distal augmentation maneuvers. Color imaging of those vessels shows no evidence of intraluminal clot. The visualized deep veins in both calves are patent. IMPRESSION: There is no sonographic evidence of deep vein thrombosis in either lower extremity.
[2017-12-31 15:58] LABS: STOMATOCYTES PRESENT
[2017-12-31 16:01] LABS: % ATYL 1 % (0-0)
--- NOTE | 2017-12-31 16:18 | PHYS DOC ---
Past History Past Medical History: COPD, CVA, Diabetes, GERD, High Cholesterol, Seizure, TIA Past Surgical History: Cholecystectomy, Hysterectomy, Knee Replacement Smoking: Cigarettes, Greater than 1 pack/day Alcohol Use: Occasionally Drug Use: Marijuana Adult General Chief Complaint Chief Complaint: LOWER EXTREMITY SWELLING [facility] HPI 47-year-old female patient with history of chronic lower extremity pain on Dilaudid brought in by EMS because of increasing bilateral knee pain since last night. Patient states she has increase of bilateral pain since last night without any injuries and has swelling of her knees and her lower extremity that not getting better with taking Dilaudid. Patient states she thinks she has blood clots to her legs questions the same symptoms with previous blood clots. Patient denies shortness of breath, chest pain, fever and chills, nausea and vomiting, focal neuro deficit. Patient rated her pain 9/10. Review of Systems Review of Systems Constitutional: Denies fever or chills [] Eyes: Denies change in visual acuity, redness, or eye pain [] HENT: Denies nasal congestion or sore throat [] Respiratory: Denies cough or shortness of breath [] Cardiovascular: No additional information not addressed in HPI [] GI: Denies abdominal pain, nausea, vomiting, bloody stools or diarrhea [] : Denies dysuria or hematuria [] Musculoskeletal: Denies back pain , reports joint pain [] Integument: Denies rash or skin lesions [] Neurologic: Denies headache, focal weakness or sensory changes [] Endocrine: Denies polyuria or polydipsia [] All other systems were reviewed and found to be within normal limits, except as documented in this note. Current Medications Current Medications Current Medications Medications (Trade) Dose Ordered Sig/Indira Start Time Stop Time Status Last Admin Dose Admin Orphenadrine Citrate (Norflex) 60 mg 1X ONCE 12/31/17 15:15 12/31/17 15:16 DC 12/31/17 15:18 60 MG Allergies Allergies Allergies Coded Allergies Type Severity Reaction Last Updated Verified aspirin Allergy Severe Shortness of Air 01/05/17 Yes adhesive tape Allergy Intermediate 05/23/17 Yes chlordiazepoxide Allergy Intermediate Swelling 05/23/17 Yes clidinium Allergy Intermediate Swelling 05/23/17 Yes erythromycin base Allergy Intermediate Hives 01/05/17 Yes fentanyl Allergy Intermediate 05/23/17 Yes ibuprofen Allergy Intermediate Hives 01/05/17 Yes morphine Allergy Intermediate Swelling 05/23/17 Yes Physical Exam Physical Exam Constitutional: Well nourished, mild distress, non-toxic appearance, sedated with pain medication and somnolent, anxious HENT: Normocephalic, atraumatic Eyes: PERRLA, EOMI, conjunctiva normal, no discharge. [] Neck: Normal range of motion, no tenderness, supple, no stridor. [] Cardiovascular:Heart rate regular rhythm, no murmur [] Lungs & Thorax: Bilateral breath sounds clear to auscultation [] Abdomen: Bowel sounds normal, soft, no tenderness, no masses, no pulsatile masses. [] Skin: Warm, dry, no erythema, no rash. [] Back: No tenderness, no CVA tenderness. [] Extremities: Bilateral lower extremity 1+ edema, bilateral knee mild effusion, limited range of motion with pain, no neurovascular deficit, good peripheral pulses Neurologic: Alert and oriented X 3, normal motor function, normal sensory function, no focal deficits noted. [] Psychologic: anxiousl, judgement normal, mood normal. [] Current Patient Data Vital Signs Vital Signs Date Time Temp Pulse Resp B/P (MAP) Pulse Ox O2 Delivery O2 Flow Rate FiO2 12/31/17 15:55 95 18 121/88 (99) 92 Room Air 12/31/17 15:01 98.6 Lab Results Laboratory Tests Test 12/31/17 15:00 White Blood Count 16.9 x10^3/uL (4.0-11.0) H Red Blood Count 4.35 x10^6/uL (3.50-5.40) Hemoglobin 13.0 g/dL (12.0-15.5) Hematocrit 39.9 % (36.0-47.0) Mean Corpuscular Volume 92 fL (79-100) Mean Corpuscular Hemoglobin 30 pg (25-35) Mean Corpuscular Hemoglobin Concent 33 g/dL (31-37) Red Cell Distribution Width 14.2 % (11.5-14.5) Platelet Count 331 x10^3/uL (140-400) Neutrophils (%) (Auto) 84 % (31-73) H Lymphocytes (%) (Auto) 6 % (24-48) L Monocytes (%) (Auto) 10 % (0-9) H Eosinophils (%) (Auto) 0 % (0-3) Basophils (%) (Auto) 0 % (0-3) Neutrophils # (Auto) 14.1 x10^3uL (1.8-7.7) H Lymphocytes # (Auto) 1.0 x10^3/uL (1.0-4.8) Monocytes # (Auto) 1.7 x10^3/uL (0.0-1.1) H Eosinophils # (Auto) 0.0 x10^3/uL (0.0-0.7) Basophils # (Auto) 0.0 x10^3/uL (0.0-0.2) Platelet Estimate Pending Sodium Level 135 mmol/L (136-145) L Potassium Level 4.0 mmol/L (3.5-5.1) Chloride Level 98 mmol/L (98-107) Carbon Dioxide Level 26 mmol/L (21-32) Anion Gap 11 (6-14) Blood Urea Nitrogen 14 mg/dL (7-20) Creatinine 0.7 mg/dL (0.6-1.0) Estimated GFR (Cockcroft-Gault) 88.9 BUN/Creatinine Ratio 20 (6-20) Glucose Level 138 mg/dL (70-99) H Calcium Level 9.3 mg/dL (8.5-10.1) Total Bilirubin 0.3 mg/dL (0.2-1.0) Aspartate Amino Transferase (AST) 28 U/L (15-37) Alanine Aminotransferase (ALT) 28 U/L (14-59) Alkaline Phosphatase 156 U/L (46-116) H Total Protein 7.0 g/dL (6.4-8.2) Albumin 3.6 g/dL (3.4-5.0) Albumin/Globulin Ratio 1.1 (1.0-1.7) EKG EKG [] Radiology/Procedures Radiology/Procedures [] [address] [address] IMAGING REPORT Signed PATIENT: RAFAEL VANCE ACCOUNT: [id number] : 1970 LOCATION: ER AGE: 47 SEX: F EXAM STATUS: REG ER ORD. PHYSICIAN: LUISITO MORGAN MD REASON: pain PROCEDURE: VENOUS LOWER EXT BILATERAL Bilateral lower extremity venous ultrasound, 12/31/2017: History: Bilateral leg pain and swelling Duplex evaluation of the deep veins in the lower extremities was performed including grayscale, color-flow and spectral Doppler analysis. The femoral and popliteal veins demonstrate normal compressibility and normal responses to distal augmentation maneuvers. Color imaging of those vessels shows no evidence of intraluminal clot. The visualized deep veins in both calves are patent. IMPRESSION: There is no sonographic evidence of deep vein thrombosis in either lower extremity. DICTATED AND SIGNED BY: SHLOMO WELLINGTON MD DATE: 12/31/17 1548 CC: ELI PROCTOR MD; LUISITO MORGAN MD ~ Course & Med Decision Making Course & Med Decision Making Pertinent Labs and Imaging studies reviewed. (See chart for details) Evaluation of patient in ER showed 47-year-old female patient with history of chronic bilateral knee pain and Dilaudid brought in by EMS because of increasing pain since last night. Patient had lower extremity mild edema and limited range of motion with pain. Patient did not have fever or tachycardia or abnormal vital sign. Patient was somnolent even she rated her pain 9/10. Bilateral knee x-ray showed the effusion. DVT ultrasound was negative. Labs was unremarkable except except for leukocytosis. Patient felt better with Norflex. Plan to give prescription of Flexeril and instruction to continue her home pain medication and follow with communications strategist orthopedic physician. Art Disclaimer Dragon Disclaimer This electronic medical record was generated, in whole or in part, using a voice recognition dictation system. Departure Departure: Impression: Primary Impression: Bilateral knee pain Additional Impressions: Bilateral knee effusions Chronic prescription opiate use Disposition: HOME, SELF-CARE (At 1641) Condition: IMPROVED Referrals: ELI PROCTOR MD (PCP) Patient Instructions: Knee Effusion, Knee Pain Additional Instructions: Continue home medication Follow-up with Dr. Ruvalcaba communications strategist orthopedic call [phone] to make an appointment Scripts Cyclobenzaprine Hcl (CYCLOBENZAPRINE HCL) 10 Mg Tablet 1 TAB PO TID, #30 TAB Prov: LUISITO MORGAN MD 12/31/17 Problem Qualifiers LUISITO MORGAN MD Dec 31, 2017 16:18
[2017-12-31 16:46] LABS: BILIRUBIN,URINE NEG (NEG); CLARITY,URINE CLEAR; COLOR,URINE YELLOW; NITRITE,URINE NEG (NEG); UROBILINOGEN,URINE 0.2 mg/dL (0.2 mg/dL)
[2017-12-31 16:47] LABS: GLUCOSE,URINE NEG (NEG)
[2017-12-31] MEDS ORDERED: CYCL-331 PO (16:47)
[2017-12-31 17:06] VITALS: BP 111/85
== END 2017-12-31 17:08 | disposition home or self-care (01) ==
LOC: ER 14:44
DX: M25.462 Effusion, left knee (principal); M25.461 Effusion, right knee; G89.29 Other chronic pain; J44.9 Chronic obstructive pulmonary disease, unspecified; E11.9 Type 2 diabetes mellitus without complications; K21.9 Gastro-esophageal reflux disease without esophagitis; E78.00 Pure hypercholesterolemia, unspecified; F17.210 Nicotine dependence, cigarettes, uncomplicated; F12.10 Cannabis abuse, uncomplicated; Z79.891 Long term (current) use of opiate analgesic; Z86.73 Personal history of transient ischemic attack (TIA), and cerebral infarction without residual deficits; Z88.1 Allergy status to other antibiotic agents; Z88.6 Allergy status to analgesic agent; Z88.5 Allergy status to narcotic agent; Z88.8 Allergy status to other drugs, medicaments and biological substances
CPT/HCPCS: 36415; 73562; 80053; 81003; 85007; 85025; 93970; 96372; 99285; J2360

== ENCOUNTER 2018-01-25 21:14 | Emergency (ER) | payer OTHER ==
[~2018-01-25] VITALS: Ht 157.5 cm; Wt 90.7 kg
[~2018-01-25 21:14] MED LIST changes: -BENZ100C PO; -DICL100G18 TP; -FURO-68 PO; -INSU100V13 SQ; -IOHEXOL 300 MG/ML 75 ML VIAL. ONE; +METF500T4 PO; -METF500T5 PO; -POTA10TA10 PO; -UMEC62.5 IH
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
[2018-01-25] MEDS ORDERED: IV RINGERS SOLUTION,LACTATED 1,000 ML IV SCH (21:45)
--- NOTE | 2018-01-25 21:48 | EKG ---
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
[2018-01-25 21:57] LABS: PREG TEST PT QUAL NEGATIVE (NEG)
[2018-01-25 22:09] LABS: ALBUMIN 3.9 g/dL (3.4-5.0); CALCIUM 9.7 mg/dL (8.5-10.1); CREATININE 0.8 mg/dL (0.6-1.0); DIRECT BILIRUBIN 0.1 mg/dL (0.0-0.2); GFR 76.2; POTASSIUM 3.8 mmol/L (3.5-5.1); TOTAL BILIRUBIN 0.4 mg/dL (0.2-1.0); TOTAL PROTEIN 7.1 g/dL (6.4-8.2)
[2018-01-25 22:33] LABS: BASO # 0.1 x10^3/uL (0.0-0.2); BASO % 1 % (0-3); EOS # 0.1 x10^3/uL (0.0-0.7); EOS % 1 % (0-3); HEMATOCRIT 40.6 % (36.0-47.0); HEMOGLOBIN 13.8 g/dL (12.0-15.5); LYMPH # 1.9 x10^3/uL (1.0-4.8); LYMPH % 21 % (24-48); MEAN CORPUSCULAR HEMOGLOBIN 31 pg (25-35); MEAN CORPUSCULAR HGB CONC 34 g/dL (31-37); MEAN CORPUSCULAR VOLUME 91 fL (79-100); MONO # 0.7 x10^3/uL (0.0-1.1); MONO % 8 % (0-9); NEUT # 6.6 x10^3uL (1.8-7.7); NEUT % 70 % (31-73); PLATELET COUNT 334 x10^3/uL (140-400); RED BLOOD COUNT 4.48 x10^6/uL (3.50-5.40); RED CELL DISTRIBUTION WIDTH 14.4 % (11.5-14.5); WHITE BLOOD COUNT 9.4 x10^3/uL (4.0-11.0)
[2018-01-25] MEDS ORDERED: hydrOXYzine HCL 25 MG TABLET PO PRN (22:45)
[2018-01-25] MEDS ORDERED: ACETAMINOPHEN 500 MG TABLET PO ONE (22:45)
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
[2018-01-26] MEDS ORDERED: POTA10TA10 PO (01:03)
[2018-01-26] MEDS ORDERED: UMEC62.5 IH (01:03)
[2018-01-26] MEDS ORDERED: INSU100V13 SQ (01:03)
[2018-01-26] MEDS ORDERED: FURO-68 PO (01:03)
[2018-01-26] MEDS ORDERED: DICL100G18 TP (01:03)
[2018-01-26] MEDS ORDERED: HYDROmorphone 2 MG TABLET PO ONE (01:15)
[2018-01-26 01:30] VITALS: BP 107/67
[2018-01-26 04:25] LABS: BARBITURATES NEG (NEG); BENZODIAZEPINES NEG (NEG); CANNABINOIDS POS (NEG); COCAINE NEG (NEG); METHADONE NEG (NEG); OPIATES POS (NEG); PHENCYCLIDINE NEG (NEG)
[2018-01-26 04:29] LABS: AMPHETAMINE/METHAMPHETAMINE NEG (NEG)
[2018-01-26 04:36] LABS: BILIRUBIN,URINE NEG (NEG); CLARITY,URINE HAZY; COLOR,URINE YELLOW; GLUCOSE,URINE NEG (NEG)
[2018-01-26 04:37] LABS: BACTERIA,URINE MOD /HPF (0-FEW); NITRITE,URINE NEG (NEG); RBC,URINE OCC /HPF (0-2); SQUAMOUS EPITHELIAL CELL,UR MOD /LPF; UROBILINOGEN,URINE 0.2 mg/dL (0.2 mg/dL); WBC,URINE OCC /HPF (0-4)
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
== END 2018-01-26 02:00 | disposition home or self-care (01) ==
LOC: ER 21:14
DX: S43.401A Unspecified sprain of right shoulder joint, initial encounter (principal); S00.83XA Contusion of other part of head, initial encounter; J44.9 Chronic obstructive pulmonary disease, unspecified; I25.10 Atherosclerotic heart disease of native coronary artery without angina pectoris; E11.9 Type 2 diabetes mellitus without complications; E78.00 Pure hypercholesterolemia, unspecified; Z86.73 Personal history of transient ischemic attack (TIA), and cerebral infarction without residual deficits; F17.210 Nicotine dependence, cigarettes, uncomplicated; F12.10 Cannabis abuse, uncomplicated; G89.29 Other chronic pain; K21.9 Gastro-esophageal reflux disease without esophagitis; Z88.6 Allergy status to analgesic agent; Z88.5 Allergy status to narcotic agent; Z88.1 Allergy status to other antibiotic agents; Z88.8 Allergy status to other drugs, medicaments and biological substances; Z88.4 Allergy status to anesthetic agent; Y04.0XXA Assault by unarmed brawl or fight, initial encounter; Y93.89 Activity, other specified; Y99.8 Other external cause status; Y92.89 Other specified places as the place of occurrence of the external cause
CPT/HCPCS: 36415; 70450; 71046; 72125; 73030; 80048; 80076; 80307; 81001; 83735; 84703; 85025; 85610; 85730; 93005; 96360; 96361; 96372; 99285; J3010; J7120; 87086; G0479

== ENCOUNTER → 2018-01-25 | Outpatient (CLI) | payer OTHER ==
[2017-12-31 17:06] VITALS: BP 111/85
[~2018-01-25] MED LIST changes: +BENZ100C PO; +CYCL-331 PO; +DICL100G18 TP; +FURO-68 PO; +INSU100V13 SQ; +IOHEXOL 300 MG/ML 75 ML VIAL. ONE; -METF500T4 PO; +METF500T5 PO; +POTA10TA10 PO; +UMEC62.5 IH
== END | disposition home or self-care (01) ==
LOC: CT 10:28
PROVIDERS: ATTEND Psychiatry & Neurology Neurology
DX: I72.0 Aneurysm of carotid artery (principal)
CPT/HCPCS: Q9967

== ENCOUNTER 2018-02-06 16:06 | Emergency (ER) | payer OTHER ==
[~2018-02-06] VITALS: Ht 157.5 cm; Wt 90.7 kg
[~2018-02-06 16:06] MED LIST changes: +DICL100G18 TP; +FURO-68 PO; +INSU100V13 SQ; +POTA10TA10 PO; +UMEC62.5 IH
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
[2018-02-06 17:38] LABS: BASO # 0.1 x10^3/uL (0.0-0.2); BASO % 1 % (0-3); EOS # 0.2 x10^3/uL (0.0-0.7); EOS % 2 % (0-3); HEMATOCRIT 39.2 % (36.0-47.0); HEMOGLOBIN 13.2 g/dL (12.0-15.5); LYMPH # 2.2 x10^3/uL (1.0-4.8); LYMPH % 29 % (24-48); MEAN CORPUSCULAR HEMOGLOBIN 30 pg (25-35); MEAN CORPUSCULAR HGB CONC 34 g/dL (31-37); MEAN CORPUSCULAR VOLUME 90 fL (79-100); MONO # 0.6 x10^3/uL (0.0-1.1); MONO % 8 % (0-9); NEUT # 4.7 x10^3uL (1.8-7.7); NEUT % 60 % (31-73); PLATELET COUNT 328 x10^3/uL (140-400); RED BLOOD COUNT 4.36 x10^6/uL (3.50-5.40); WHITE BLOOD COUNT 7.7 x10^3/uL (4.0-11.0)
[2018-02-06 17:54] LABS: AMPHETAMINE/METHAMPHETAMINE NEG (NEG); BARBITURATES NEG (NEG); BENZODIAZEPINES NEG (NEG); CANNABINOIDS POS (NEG); COCAINE NEG (NEG); METHADONE NEG (NEG); OPIATES POS (NEG); PHENCYCLIDINE NEG (NEG)
[2018-02-06 18:01] LABS: ALBUMIN 3.5 g/dL (3.4-5.0); ALBUMIN/GLOBULIN RATIO 1.1 (1.0-1.7); CALCIUM 8.6 mg/dL (8.5-10.1); CREATININE 0.6 mg/dL (0.6-1.0); GFR 106.3; POTASSIUM 3.5 mmol/L (3.5-5.1); TOTAL BILIRUBIN 0.3 mg/dL (0.2-1.0); TOTAL PROTEIN 6.8 g/dL (6.4-8.2)
[2018-02-06 18:22] LABS: BILIRUBIN,URINE NEG (NEG); CLARITY,URINE CLEAR; COLOR,URINE YELLOW; GLUCOSE,URINE NEG (NEG)
[2018-02-06 18:23] LABS: BACTERIA,URINE 0 /HPF (0-FEW); NITRITE,URINE NEG (NEG); RBC,URINE OCC /HPF (0-2); SQUAMOUS EPITHELIAL CELL,UR MOD /LPF; UROBILINOGEN,URINE 0.2 mg/dL (0.2 mg/dL)
[2018-02-06] MEDS ORDERED: BENZ100C PO (19:07)
[2018-02-06 19:13] VITALS: BP 105/63
--- NOTE | 2018-02-07 08:41 | RAD ---
Chest, 2 views, 02/06/2018: HISTORY: Cough Comparison is made to a study from 01/26/2018. The heart size and pulmonary vascularity are normal. No pulmonary infiltrate is seen. There is no evidence of pleural fluid. There are mild scattered spurs in the spine. A surgical plate and screws is evident in the lower cervical region. IMPRESSION: No acute cardiopulmonary abnormality is detected. Electronically signed by: Amor Jauregui MD (02/07/2018 8:37 AM) [facility]
== END 2018-02-06 19:15 | disposition home or self-care (01) ==
LOC: ER 16:06
DX: J40 Bronchitis, not specified as acute or chronic (principal); J06.9 Acute upper respiratory infection, unspecified; R51 Headache; M54.5 Low back pain; R60.0 Localized edema; M19.90 Unspecified osteoarthritis, unspecified site; J44.9 Chronic obstructive pulmonary disease, unspecified; E11.9 Type 2 diabetes mellitus without complications; K21.9 Gastro-esophageal reflux disease without esophagitis; F17.210 Nicotine dependence, cigarettes, uncomplicated; F12.10 Cannabis abuse, uncomplicated; E78.00 Pure hypercholesterolemia, unspecified; Z86.73 Personal history of transient ischemic attack (TIA), and cerebral infarction without residual deficits; Z88.6 Allergy status to analgesic agent; Z88.5 Allergy status to narcotic agent; Z88.1 Allergy status to other antibiotic agents; Z88.8 Allergy status to other drugs, medicaments and biological substances
CPT/HCPCS: 36415; 70450; 71046; 72131; 80053; 80307; 81001; 83880; 84484; 85025; 99285-25; G0479

== ENCOUNTER → 2019-01-14 | Outpatient (CLI) | payer OTHER ==
[~2019-01-14] MED LIST changes: +ALBU2.5V8 INH; -ALBU8.5H8 INH; +BENZ100C PO; +IOHEXOL 240 MG/ML 50ML VIAL. ONE; +IOHEXOL 300 MG/ML 75 ML VIAL. IV ONE; +METF500T16 PO; -METF500T4 PO; -OXCA300T PO; +OXCA300T19 PO; -SPIR50TA2 PO; +SPIR50TA4 PO
[2019-01-14 10:52] LABS: CREATININE 0.7 mg/dL (0.6-1.0); GFR 88.6
--- NOTE | 2019-01-14 12:44 | RAD ---
Examination: CT of the abdomen pelvis with oral and IV contrast HISTORY: History of weight loss. COMPARISON: None available TECHNIQUE: Axial CT images of the abdomen pelvis were performed with oral and IV contrast. Coronal and sagittal reformats are performed. Exposure: One or more of the following individualized dose reduction techniques were utilized for this examination: 1. Automated exposure control 2. Adjustment of the mA and/or kV according to patient size 3. Use of iterative reconstruction technique FINDINGS: The bibasilar lungs are clear. No evidence of free air identified in the abdomen. The visualized liver, spleen, right adrenal grossly appears unremarkable. There is a 1.7 cm nodule identified in the left adrenal gland measuring 18 Hounsfield units probably an adrenal adenoma. The stomach is mildly distended. The small bowel is nondilated. Feces and gas noted in the colon. The urinary bladder is mildly distended. The bilateral kidneys enhance symmetrically. There is a small 8 mm cystic structure identified in the right kidney is difficult to characterize.. The caliber of the aorta grossly appears unremarkable. No evidence of lytic bony destructive lesion. Spinal stimulator leads identified in the sacrum. IMPRESSION: 1. No acute intra-abdominal findings. 2. 1.8 cm nodule identified in the left adrenal gland probably an adrenal adenoma. Electronically signed by: Fidel Xie MD (01/14/2019 12:41 PM) [id number]
== END | disposition home or self-care (01) ==
LOC: CT 10:14
PROVIDERS: ATTEND Internal Medicine Gastroenterology
DX: E27.8 Other specified disorders of adrenal gland (principal); N32.89 Other specified disorders of bladder; J44.9 Chronic obstructive pulmonary disease, unspecified; I11.9 Hypertensive heart disease without heart failure; E11.9 Type 2 diabetes mellitus without complications; Z87.891 Personal history of nicotine dependence
CPT/HCPCS: 36415; 74177; 82565; 84520; Q9967

== ENCOUNTER 2019-01-31 20:34 | Observation (INO) | payer OTHER, MEDICAID ==
[~2019-01-31] VITALS: Ht 157.5 cm; Wt 94.1 kg
[~2019-01-31 20:34] MED LIST changes: -IOHEXOL 240 MG/ML 50ML VIAL. ONE; -IOHEXOL 300 MG/ML 75 ML VIAL. IV ONE
--- NOTE | 2019-01-31 20:36 | ED.ADGEN ---
Past History Past Medical History: Angina, Arthritis, COPD, CVA, Depression, Diabetes, GERD, High Cholesterol, Stroke, TIA Past Surgical History: Cholecystectomy, Hysterectomy, Knee Replacement Smoking: Cigarettes, Greater than 1 pack/day Alcohol Use: None Drug Use: Marijuana Adult General Chief Complaint Chief Complaint ".. I was taking this over the counter allergy medicine... and then .. I noticed later .. my lips were swelling .. and then I got more wheezing... and my throat got itchy.. then... I went to see what I took.. and it had Aspirin in it... and I am extremely allergic.. usually end up in the hospital... HPI HPI Patient is a 48 year old female who presents with above hx and complaints of history of severe allergic reaction to any aspirin product. previous exposures to have required hospitalization. Patient has multiple allergies. Patient complains of wheezing, tightness in throat, and lip and tongue swelling. Patient does continue to smoke cigarettes. Does have a history of COPD. Does have a history of diabetes. No recent travel or specific ill contacts. No intake of any other allergen inducing substances tonight. Patient recently had some upper nasal and respiratory primary congestion and drainage. Patient normally follows with [facility] for care. Review of Systems Review of Systems Constitutional: Denies fever or chills [] Eyes: Denies change in visual acuity, redness, or eye pain [] HENT:complaints of nasal congestion itchy throat []complaints of some swollen lips and tongue Respiratory: complaints of cough , wheezing,shortness of breath [] Cardiovascular: No additional information not addressed in HPI [] GI: Denies abdominal pain, nausea, vomiting, bloody stools or diarrhea [] : Denies dysuria or hematuria [] Musculoskeletal: Denies back pain or joint pain [] Integument: Denies rash or skin lesions [] Neurologic: Denies headache, focal weakness or sensory changes [] Endocrine: Denies polyuria or polydipsia [] All other systems were reviewed and found to be within normal limits, except as documented in this note. Family History Family History Noncontributory Current Medications Current Medications Current Medications Medications (Trade) Dose Ordered Sig/Indira Start Time Stop Time Status Last Admin Dose Admin Acetaminophen (Tylenol) 650 mg PRN Q4HRS PRN 01/31/19 21:45 02/01/19 21:44 Albuterol Sulfate (Ventolin Hfa Inhaler) 2 puff 1X ONCE 01/31/19 21:30 01/31/19 21:31 DC 01/31/19 21:20 2 PUFF Albuterol/ Ipratropium (Duoneb) 3 ml 1X ONCE 01/31/19 21:30 01/31/19 21:31 DC 01/31/19 21:20 3 ML Diphenhydramine HCl (Benadryl) 50 mg 1X ONCE 01/31/19 21:30 01/31/19 21:31 DC 01/31/19 21:37 50 MG Famotidine (Pepcid Vial) 20 mg 1X ONCE 01/31/19 21:30 01/31/19 21:31 DC 01/31/19 21:37 20 MG Lactated Ringer's 1,000 ml @ 160 mls/hr Q6H15M 01/31/19 21:45 01/31/19 22:12 DC Magnesium Hydroxide (Milk Of Magnesia) 2,400 mg 1X ONCE 01/31/19 21:30 01/31/19 21:31 DC 01/31/19 21:37 2,400 MG Methylprednisolone Sodium Succinate (SOLU-Medrol 125MG VIAL) 125 mg 1X ONCE 01/31/19 21:30 01/31/19 21:31 DC 01/31/19 21:37 125 MG Ondansetron HCl (Zofran) 4 mg PRN Q4HRS PRN 01/31/19 21:45 01/31/19 22:12 DC Allergies Allergies Allergies Coded Allergies Type Severity Reaction Last Updated Verified aspirin Allergy Severe Shortness of Air 01/05/17 Yes adhesive tape Allergy Intermediate 05/23/17 Yes chlordiazepoxide Allergy Intermediate Swelling 05/23/17 Yes clidinium Allergy Intermediate Swelling 05/23/17 Yes erythromycin base Allergy Intermediate Hives 01/05/17 Yes fentanyl Allergy Intermediate 05/23/17 Yes ibuprofen Allergy Intermediate Hives 01/05/17 Yes morphine Allergy Intermediate Swelling 05/23/17 Yes Physical Exam Physical Exam Constitutional: reports moderately acute distress, non-toxic appearance. [] HENT: Normocephalic, atraumatic, bilateral external ears normal, oropharynx moist, postnasal drainage, no oral exudates, nose swollen Turbinates and clear rhinorrhea. Min. lip and tongue edema. Eyes: PERRLA, EOMI, conjunctiva normal, no discharge. [] Neck: Normal range of motion, no tenderness, supple, no stridor. [] Cardiovascular:Heart rate regular rhythm, no murmur [] Lungs & Thorax: Bilateral breath sounds equal apex with wheezing throughout on auscultation [] Abdomen: Bowel sounds normal, soft, no tenderness, no masses, no pulsatile masses. [] old surgical scars. Skin: Warm, dry, no erythema, no rash. [] Back: No tenderness, no CVA tenderness. [] Extremities: No tenderness, no cyanosis, no clubbing, ROM intact, no edema. [] Neurologic: Alert and oriented X 3, normal motor function, normal sensory function, no focal deficits noted. [] Psychologic: Affect anxious, judgement normal, mood normal. [] Current Patient Data Vital Signs Vital Signs Date Time Temp Pulse Resp B/P (MAP) Pulse Ox O2 Delivery O2 Flow Rate FiO2 01/31/19 22:00 85 20 121/85 (97) 95 Room Air 01/31/19 21:05 98.2 Lab Results Laboratory Tests Test 01/31/19 21:27 White Blood Count 6.8 x10^3/uL (4.0-11.0) Red Blood Count 4.30 x10^6/uL (3.50-5.40) Hemoglobin 13.3 g/dL (12.0-15.5) Hematocrit 39.4 % (36.0-47.0) Mean Corpuscular Volume 92 fL (79-100) Mean Corpuscular Hemoglobin 31 pg (25-35) Mean Corpuscular Hemoglobin Concent 34 g/dL (31-37) Red Cell Distribution Width 14.1 % (11.5-14.5) Platelet Count 269 x10^3/uL (140-400) Neutrophils (%) (Auto) 51 % (31-73) Lymphocytes (%) (Auto) 36 % (24-48) Monocytes (%) (Auto) 9 % (0-9) Eosinophils (%) (Auto) 3 % (0-3) Basophils (%) (Auto) 1 % (0-3) Neutrophils # (Auto) 3.5 x10^3uL (1.8-7.7) Lymphocytes # (Auto) 2.5 x10^3/uL (1.0-4.8) Monocytes # (Auto) 0.6 x10^3/uL (0.0-1.1) Eosinophils # (Auto) 0.2 x10^3/uL (0.0-0.7) Basophils # (Auto) 0.1 x10^3/uL (0.0-0.2) Prothrombin Time 12.1 SEC (9.4-11.4) H Prothrombin Time INR 1.2 (0.9-1.1) H PTT 31 SEC (23-33) Sodium Level 142 mmol/L (136-145) Potassium Level 4.2 mmol/L (3.5-5.1) Chloride Level 107 mmol/L (98-107) Carbon Dioxide Level 26 mmol/L (21-32) Anion Gap 9 (6-14) Blood Urea Nitrogen 12 mg/dL (7-20) Creatinine 0.9 mg/dL (0.6-1.0) Estimated GFR (Cockcroft-Gault) 66.3 Glucose Level 114 mg/dL (70-99) H Calcium Level 8.5 mg/dL (8.5-10.1) Magnesium Level 1.9 mg/dL (1.8-2.4) Total Bilirubin 0.2 mg/dL (0.2-1.0) Direct Bilirubin < 0.1 mg/dL (0.0-0.2) Aspartate Amino Transferase (AST) 9 U/L (15-37) L Alanine Aminotransferase (ALT) 13 U/L (14-59) L Alkaline Phosphatase 161 U/L (46-116) H Troponin I Quantitative < 0.017 ng/mL (0-0.055) TS-Ylt-Y-Type Natriuretic Peptide 70 pg/mL (0-124) Total Protein 6.5 g/dL (6.4-8.2) Albumin 3.4 g/dL (3.4-5.0) EKG EKG My interpretation EKG shows a sinus rhythm at 74 bpm. There is some nonspecific contour changes in anterior lateral region. But no findings acute STEMI with contralateral changes.[] Radiology/Procedures Radiology/Procedures My interpretation of chest x-ray shows no acute cardiopulmonary findings[] Course & Med Decision Making Course & Med Decision Making Pertinent Labs and Imaging studies reviewed. (See chart for details) Pt. by time of transport to hospital bed, reports marked improvement of symptoms. Min. wheezing and no stridor noted. Patient admitted to Dr. Laws for further evaluation and treatment. [] Final Impression Final Impression 1. Allergic Reaction- ASA 2. DM 3. Elevated Alk. Phos 4. COPD 5. GERD[] Dragon Disclaimer Dragon Disclaimer This electronic medical record was generated, in whole or in part, using a voice recognition dictation system. Discharge Summary Visit Information Final Diagnosis Problems Medical Problems: (1) Allergic reaction Status: Acute Brief Hospital Course Allergies Allergies Coded Allergies Type Severity Reaction Last Updated Verified aspirin Allergy Severe Shortness of Air 01/05/17 Yes adhesive tape Allergy Intermediate 05/23/17 Yes chlordiazepoxide Allergy Intermediate Swelling 05/23/17 Yes clidinium Allergy Intermediate Swelling 05/23/17 Yes erythromycin base Allergy Intermediate Hives 01/05/17 Yes fentanyl Allergy Intermediate 05/23/17 Yes ibuprofen Allergy Intermediate Hives 01/05/17 Yes morphine Allergy Intermediate Swelling 05/23/17 Yes Vital Signs Vital Signs Date Time Temp Pulse Resp B/P (MAP) Pulse Ox O2 Delivery O2 Flow Rate FiO2 01/31/19 22:00 85 20 121/85 (97) 95 Room Air 01/31/19 21:05 98.2 Lab Results Laboratory Tests Test 01/31/19 21:27 White Blood Count 6.8 x10^3/uL (4.0-11.0) Red Blood Count 4.30 x10^6/uL (3.50-5.40) Hemoglobin 13.3 g/dL (12.0-15.5) Hematocrit 39.4 % (36.0-47.0) Mean Corpuscular Volume 92 fL (79-100) Mean Corpuscular Hemoglobin 31 pg (25-35) Mean Corpuscular Hemoglobin Concent 34 g/dL (31-37) Red Cell Distribution Width 14.1 % (11.5-14.5) Platelet Count 269 x10^3/uL (140-400) Neutrophils (%) (Auto) 51 % (31-73) Lymphocytes (%) (Auto) 36 % (24-48) Monocytes (%) (Auto) 9 % (0-9) Eosinophils (%) (Auto) 3 % (0-3) Basophils (%) (Auto) 1 % (0-3) Neutrophils # (Auto) 3.5 x10^3uL (1.8-7.7) Lymphocytes # (Auto) 2.5 x10^3/uL (1.0-4.8) Monocytes # (Auto) 0.6 x10^3/uL (0.0-1.1) Eosinophils # (Auto) 0.2 x10^3/uL (0.0-0.7) Basophils # (Auto) 0.1 x10^3/uL (0.0-0.2) Prothrombin Time 12.1 SEC (9.4-11.4) Prothromb Time International Ratio 1.2 (0.9-1.1) Activated Partial Thromboplast Time 31 SEC (23-33) Sodium Level 142 mmol/L (136-145) Potassium Level 4.2 mmol/L (3.5-5.1) Chloride Level 107 mmol/L (98-107) Carbon Dioxide Level 26 mmol/L (21-32) Anion Gap 9 (6-14) Blood Urea Nitrogen 12 mg/dL (7-20) Creatinine 0.9 mg/dL (0.6-1.0) Estimated GFR (Cockcroft-Gault) 66.3 Glucose Level 114 mg/dL (70-99) Calcium Level 8.5 mg/dL (8.5-10.1) Magnesium Level 1.9 mg/dL (1.8-2.4) Total Bilirubin 0.2 mg/dL (0.2-1.0) Direct Bilirubin < 0.1 mg/dL (0.0-0.2) Aspartate Amino Transf (AST/SGOT) 9 U/L (15-37) Alanine Aminotransferase (ALT/SGPT) 13 U/L (14-59) Alkaline Phosphatase 161 U/L (46-116) Troponin I Quantitative < 0.017 ng/mL (0-0.055) OD-Sem-F-Type Natriuretic Peptide 70 pg/mL (0-124) Total Protein 6.5 g/dL (6.4-8.2) Albumin 3.4 g/dL (3.4-5.0) Brief Hospital Course Ms. Haile is a 48 old female who presented with that accidently took aspirin which she has severe allergy . Admitted to Dr. Laws. Discharge Information Condition at Discharge: Improved, Stable Dischare Medications Current Medications Lactated Ringer's 1,000 ml @ 1,000 mls/hr Q1H IV Last administered on 01/31/19at 21:37; Admin Dose 1,000 MLS/HR; Start 01/31/19 at 21:30; Stop 01/31/19 at 22:29; Status DC Methylprednisolone Sodium Succinate (SOLU-Medrol 125MG VIAL) 125 mg 1X ONCE IV Last administered on 01/31/19at 21:37; Admin Dose 125 MG; Start 01/31/19 at 21:30; Stop 01/31/19 at 21:31; Status DC Famotidine (Pepcid Vial) 20 mg 1X ONCE IVP Last administered on 01/31/19at 21:37; Admin Dose 20 MG; Start 01/31/19 at 21:30; Stop 01/31/19 at 21:31; Status DC Diphenhydramine HCl (Benadryl) 50 mg 1X ONCE IVP Last administered on 01/31/19at 21:37; Admin Dose 50 MG; Start 01/31/19 at 21:30; Stop 01/31/19 at 21:31; Status DC Albuterol/ Ipratropium (Duoneb) 3 ml 1X ONCE NEB Last administered on 01/31/19at 21:20; Admin Dose 3 ML; Start 01/31/19 at 21:30; Stop 01/31/19 at 21:31; Status DC Albuterol Sulfate (Ventolin Hfa Inhaler) 2 puff 1X ONCE INH Last administered on 01/31/19at 21:20; Admin Dose 2 PUFF; Start 01/31/19 at 21:30; Stop 01/31/19 at 21:31; Status DC Magnesium Hydroxide (Milk Of Magnesia) 2,400 mg 1X ONCE PO Last administered on 01/31/19at 21:37; Admin Dose 2,400 MG; Start 01/31/19 at 21:30; Stop 01/31/19 at 21:31; Status DC Ondansetron HCl (Zofran) 4 mg PRN Q4HRS PRN IV NAUSEA/VOMITING; Start 01/31/19 at 21:45; Stop 01/31/19 at 22:12; Status DC Acetaminophen (Tylenol) 650 mg PRN Q4HRS PRN PO FEVER; Start 01/31/19 at 21:45; Stop 02/01/19 at 21:44 Lactated Ringer's 1,000 ml @ 160 mls/hr Q6H15M IV ; Start 01/31/19 at 21:45; Stop 01/31/19 at 22:12; Status DC Active Scripts Active Tessalon Perle (Benzonatate) 100 Mg Capsule 1 Cap PO TID Omeprazole 40 Mg Capsule.dr 1 Cap PO BID 30 Days Reported Incruse Ellipta (Umeclidinium Salix) 62.5 Mcg Blst.w.dev 62.5 Mcg IH DAILY Potassium Chloride 10 Meq Tablet.er 10 Meq PO BID Lasix (Furosemide) 40 Mg Tablet 40 Mg PO BID Levemir (Insulin Detemir) 100 Unit/1 Ml Vial 16 Unit SQ DAILY Voltaren (Diclofenac Sodium) 100 Gm Gel..gram. 1 Gm TP QID Remeron (Mirtazapine) 15 Mg Tablet 1 Tab PO QHS Trulicity (Dulaglutide) 0.75 Mg/0.5 Ml Pen.injctr 0.75 Mg SQ DAILY Seroquel (Quetiapine Fumarate) 25 Mg Tablet 25 Mg PO DAILY16 Seroquel (Quetiapine Fumarate) 25 Mg Tablet 25 Mg PO DAILY Breo Ellipta 100-25 Mcg Inh (Fluticasone/Vilanterol) 1 Each Aer.pow.ba 1 Puff IH DAILY Zonegran (Zonisamide) 100 Mg Capsule 2 Cap PO QHS Fluticasone Propionate Nasal Mcgrady (Fluticasone Propionate) 16 Gm Mcgrady.susp 2 Spr NS BID Metoprolol Tartrate 25 Mg Tablet 1 Tab PO BID Seroquel (Quetiapine Fumarate) 200 Mg Tablet 1 Tab PO QHS Xarelto (Rivaroxaban) 10 Mg Tablet 20 Mg PO DAILY Baclofen 10 Mg Tablet 1 Tab PO TID Spironolactone 50 Mg Tablet 1 Tab PO BID Lamictal (Lamotrigine) 100 Mg Tablet 2 Tab PO BID Tizanidine Hcl (Tizanidine HCl) 4 Mg Tablet 4 Mg PO PRN QHS PRN Gabapentin 300 Mg Capsule 300 Mg PO HS Ranitidine Hcl 150 Mg Tablet 1 Tab PO BID Keppra (Levetiracetam) 500 Mg Tablet 1,000 Mg PO BID Oxcarbazepine 300 Mg Tablet 2 Tab PO DAILYWSUP Oxcarbazepine 300 Mg Tablet 1 Tab PO DAILYWBKFT Cymbalta (Duloxetine Hcl) 60 Mg Capsule.dr 2 Cap PO QHS Metformin Hcl 500 Mg Tablet 0.5 Tab PO BID Proair Hfa Inhaler (Albuterol Sulfate) 8.5 Gm Hfa.aer.ad 1 Puff INH PRN Q6HRS PRN Hydroxyzine Hcl 25 Mg Tablet 100 Mg PO QIDPRN PRN Linzess (Linaclotide) 290 Mcg Capsule 290 Mcg PO DAILY Dragon Disclaimer This chart was dictated in whole or in part using Voice Recognition software in a busy, high-work load, and often noisy Emergency Department environment. It may contain unintended and wholly unrecognized errors or omissions. SARAH WEBB MD Jan 31, 2019 20:36
[2019-01-31] MEDS ORDERED: methylPREDNISolone SOD SUCC PF 125 MG/2 ML VIAL. IV ONE (21:30)
[2019-01-31] MEDS ORDERED: diphenhydrAMINE 50 MG/ML VIAL IVP ONE (21:30)
[2019-01-31] MEDS ORDERED: FAMOTIDINE 20 MG/2 ML VIAL IVP ONE (21:30)
[2019-01-31] MEDS ORDERED: IV RINGERS SOLUTION,LACTATED 1,000 ML IV SCH ×2 (21:30→21:45)
[2019-01-31] MEDS ORDERED: IPRATRPIUM/ALBUTEROL 0.5/2.5MG 3 ML NEBU. NEB ONE (21:30)
[2019-01-31] MEDS ORDERED: ALBUTEROL SULFATE 8GM INHALER. INH ONE (21:30)
[2019-01-31] MEDS ORDERED: MAGNESIUM HYDROXIDE 2,400 MG/30 ML ORAL.SUSP. PO ONE (21:30)
--- NOTE | 2019-01-31 21:33 | EKG ---
[address] [address] Test Date: 2019-01-31 Test Time: 21:17:35 Pat Name: RAFAEL VANCE Department: Room: Gender: F Tube Depatcher: : 1970 Requested By: SARAH WEBB Order Number: [id number] Reading MD: Jus Issa Measurements Intervals [place] Rate: 74 P: 37 [place]: 186 QRS: 49 QRSD: 96 T: 52 QT: 388 QTc: 436 Interpretive Statements SINUS RHYTHM NONSPECIFIC ST-T WAVE CHANGES. Electronically Signed On 02-05-2019 13:03:56 CDT by Jus Issa
[2019-01-31 21:38] LABS: BASO # 0.1 x10^3/uL (0.0-0.2); BASO % 1 % (0-3); EOS # 0.2 x10^3/uL (0.0-0.7); EOS % 3 % (0-3); HEMATOCRIT 39.4 % (36.0-47.0); HEMOGLOBIN 13.3 g/dL (12.0-15.5); LYMPH # 2.5 x10^3/uL (1.0-4.8); LYMPH % 36 % (24-48); MEAN CORPUSCULAR HEMOGLOBIN 31 pg (25-35); MEAN CORPUSCULAR HGB CONC 34 g/dL (31-37); MEAN CORPUSCULAR VOLUME 92 fL (79-100); MONO # 0.6 x10^3/uL (0.0-1.1); MONO % 9 % (0-9); NEUT # 3.5 x10^3uL (1.8-7.7); NEUT % 51 % (31-73); PLATELET COUNT 269 x10^3/uL (140-400); RED CELL DISTRIBUTION WIDTH 14.1 % (11.5-14.5); WHITE BLOOD COUNT 6.8 x10^3/uL (4.0-11.0)
[2019-01-31] MEDS ORDERED: ACETAMINOPHEN 325 MG TABLET PO PRN (21:45)
[2019-01-31] MEDS ORDERED: ONDANSETRON PF 4 MG/2 ML VIAL. IV PRN ×2 (21:45→22:15)
[2019-01-31 22:08] LABS: ALBUMIN 3.4 g/dL (3.4-5.0); ALK PHOS 161 U/L (46-116); ALT (SGPT) 13 U/L (14-59); ANION GAP 9 (6-14); AST (SGOT) 9 U/L (15-37); BLOOD UREA NITROGEN 12 mg/dL (7-20); CALCIUM 8.5 mg/dL (8.5-10.1); CARBON DIOXIDE 26 mmol/L (21-32); CHLORIDE 107 mmol/L (98-107); CREATININE 0.9 mg/dL (0.6-1.0); DIRECT BILIRUBIN < 0.1 mg/dL (0.0-0.2); GFR 66.3; GLUCOSE 114 mg/dL (70-99); MAGNESIUM 1.9 mg/dL (1.8-2.4); POTASSIUM 4.2 mmol/L (3.5-5.1); SODIUM 142 mmol/L (136-145); TOTAL BILIRUBIN 0.2 mg/dL (0.2-1.0); TOTAL PROTEIN 6.5 g/dL (6.4-8.2)
[2019-01-31 23:55] VITALS: BP 102/67
[2019-02-01] MEDS: IV RINGERS SOLUTION,LACTATED 1,000 ML IV SCH ×3 (00:36→11:01)
[2019-02-01] MEDS: diphenhydrAMINE 50 MG/ML VIAL IV SCH ×3 (00:38→11:49)
[2019-02-01 05:13] LABS: BACTERIA,URINE FEW /HPF (0-FEW); BILIRUBIN,URINE NEG (NEG); CLARITY,URINE CLEAR; COLOR,URINE YELLOW; GLUCOSE,URINE NEG (NEG); NITRITE,URINE NEG (NEG); UROBILINOGEN,URINE 1 mg/dL (0.2 mg/dL)
[2019-02-01 05:14] LABS: SQUAMOUS EPITHELIAL CELL,UR MOD /LPF
[2019-02-01 06:16] VITALS: BP 107/70
[2019-02-01 07:28] LABS: BASO % 1 % (0-3); EOS % 0 % (0-3); HEMATOCRIT 38.1 % (36.0-47.0); HEMOGLOBIN 12.8 g/dL (12.0-15.5); LYMPH # 0.6 x10^3/uL (1.0-4.8); LYMPH % 9 % (24-48); MEAN CORPUSCULAR HEMOGLOBIN 31 pg (25-35); MEAN CORPUSCULAR HGB CONC 34 g/dL (31-37); MEAN CORPUSCULAR VOLUME 91 fL (79-100); MONO # 0.1 x10^3/uL (0.0-1.1); MONO % 2 % (0-9); NEUT # 6.2 x10^3uL (1.8-7.7); NEUT % 89 % (31-73); PLATELET COUNT 247 x10^3/uL (140-400); RED CELL DISTRIBUTION WIDTH 13.8 % (11.5-14.5); WHITE BLOOD COUNT 6.9 x10^3/uL (4.0-11.0)
[2019-02-01 07:35] LABS: CALCIUM 8.9 mg/dL (8.5-10.1); CREATININE 0.8 mg/dL (0.6-1.0); GFR 75.9; POTASSIUM 4.4 mmol/L (3.5-5.1)
[2019-02-01] MEDS ORDERED: IPRATRPIUM/ALBUTEROL 0.5/2.5MG 3 ML NEBU. NEB SCH ×2 (08:00)
--- NOTE | 2019-02-01 08:07 | RAD ---
PORTABLE CHEST 1V History: Allergic reaction Comparison: None. Findings: Single view of the chest is submitted. Heart size is stable, within normal limits. There is cervical fusion hardware not fully included. There is no new lobar consolidation, pleural fluid, pneumothorax. Some hazy opacity at the left lung base is probably accentuated by soft tissue attenuation. Impression: 1. There is no convincing evidence of acute cardiopulmonary disease. Electronically signed by: Mehul Pacheco MD (02/01/2019 8:04 AM) [facility]
[2019-02-01 08:43] LABS: % BANDS 2 % (0-9); % BASOS 1 % (0-3); % LYMPHS 11 % (24-48); % SEGS 86 % (35-66)
[2019-02-01 08:44] LABS: PLT ESTIMATE ADEQUATE (ADEQUATE); TOXIC GRANULATION PRESENT
[2019-02-01] MEDS ORDERED: FAMOTIDINE 20 MG/2 ML VIAL IVP SCH ×2 (09:00)
[2019-02-01] MEDS ORDERED: diphenhydrAMINE 50 MG/ML VIAL IV SCH (09:00)
[2019-02-01] MEDS ORDERED: methylPREDNISolone SOD SUCC PF 125 MG/2 ML VIAL. IV SCH ×2 (09:00)
[2019-02-01 11:14] VITALS: BP 130/85
[2019-02-01 15:21] VITALS: BP 138/83
[2019-02-01] MEDS ORDERED: predniSONE 20 MG TABLET PO ONE (16:30)
--- NOTE | 2019-02-01 17:03 | SSS ---
ADMIT DATE: 02/01/2019 HISTORY OF PRESENT ILLNESS: The patient is a 48-year-old female patient, who came to the Emergency Room complaining that her lips are swollen and that she is wheezing. Her throat is itchy. She apparently took an ljhy-nhq-frevxaq allergy medicine that contains ASPIRIN in it and she is extremely allergic to ASPIRIN. Apparently, she has had before episodes where she was ended up intubated and mechanically ventilated. She did complain of wheezing, tightness in the throat and lips and tongue swollen. She continued to smoke cigarettes, does have history of COPD. She was investigated in the Emergency Room and her EKG was unremarkable. Chest x-ray was also and her lab works also were unremarkable and was admitted with allergic reaction to ASPIRIN. She was given Solu-Medrol, famotidine, diphenhydramine and was admitted for observation. PAST MEDICAL HISTORY: Significant for type 2 diabetes mellitus, coronary artery disease, status post PCI with stent deployment x 2, cerebrovascular accident x 3. She has migraine headaches treated with Botox every 3 months. She has bladder stimulation. She is incontinent, has bronchial asthma/COPD, obstructive sleep apnea, and osteoarthritis. She had an intentional weight loss of more than 50 pounds for which she is scheduled to be seen by the mine captain. PAST SURGICAL HISTORY: Significant for bilateral total knee arthroplasty, PCI with stent deployment, bilateral carpal tunnel release, bilateral shoulder surgery, cervical spine fusion. She has appendectomy, cholecystectomy, total abdominal hysterectomy and bilateral salpingo-oophorectomy, tonsillectomy, bilateral cataract extraction, esophagogastroduodenoscopy and colonoscopy. ALLERGIES: She is allergic to ADHESIVE TAPE, ASPIRIN, CHLORDIAZEPOXIDE, CLIDINIUM, ERYTHROMYCIN BASE, FENTANYL, IBUPROFEN, LORATADINE, MORPHINE. FAMILY HISTORY: Significant for the fact that she has 1 older sister and 2 younger sisters and 1 brother. She does not know her biological father. Mother at the age of 71 because of COPD and breast cancer. SOCIAL HISTORY: She lives with her common law for the last 16 years. She has 1 daughter and 2 sons. She smokes half a pack a day, does not drink alcohol. Smoke marijuana at night time to improve her appetite. 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 REVIEW OF SYSTEMS: As per history of present illness. PHYSICAL EXAMINATION: GENERAL: On arrival to the Emergency Room, the patient was slightly tachypneic, pale, but no jaundice, cyanosis, or thyromegaly. No jugular venous distension. No limb edema. VITAL SIGNS: Her heart rate was 80, blood pressure was 141/83, temperature was 98.2, respiratory rate was 20, and oxygen saturation was 94% on room air. HEAD, EYES, EARS, NOSE, AND THROAT: Showed normocephalic, atraumatic. NECK: Supple. HEART: Showed normal first and second heart sounds. No gallop, rub or murmur. CHEST: Clear to auscultation. No crepitation or rhonchi with scattered wheezing throughout on auscultation. ABDOMEN: Soft, nontender. No guarding or rigidity. No organomegaly. All hernial orifice intact. Bowel sounds normal. NEUROLOGIC: She was alert, oriented x 3 with normal motor and sensory function. Psychologically, she was anxious, but with normal mood and judgment. LABORATORY DATA: While in the Emergency Room, she was extensively investigated has had lab work: White cell count 6800, hemoglobin 13.3, hematocrit was 39.4, MCV 92, and platelet count of 269,000 with normal manual differential. Her chemistry showed a serum sodium 142, potassium 4.2, chloride 107, bicarbonate 26, anion gap of 9, BUN 12, creatinine 0.9, estimated GFR was 66 mL per minute, her glucose 114, calcium was 8.5, magnesium was 1.9. Total bilirubin, AST, ALT, alkaline phosphatase were normal. Her total protein was 6.5, albumin was 3.4. Her prothrombin time was 12.1, INR of 1.2, APTT was 31. Her urinalysis was essentially unremarkable. Her chest x-ray showed that heart size is stable, within normal limits. There is cervical fusion, hardware not fully included. There is no new lobar consolidation, pleural effusion, pneumothorax, some hazy opacity at the left lung base, probably accentuated by soft tissue attenuation, so the patient was admitted, was given Solu-Medrol together with famotidine, diphenhydramine as well as albuterol treatment. When I saw her this afternoon, she has had no more swelling of the lip, no more tingling or numbness. No shortness of breath. Her chest tightness and wheezing has completely subsided and the patient expressed her desire to go home. When I examined her, she looked well and was clearly in no apparent respiratory distress. No pallor, jaundice, cyanosis or thyromegaly. No jugular venous distention. No lower limb edema. VITAL SIGNS: Her heart rate was 61, blood pressure was 138/83, temperature was 97.8, respiratory rate 20, and oxygen saturation was 93%. HEAD, EYES, EARS, NOSE, AND THROAT: Showed normocephalic, atraumatic. NECK: Supple. HEART: Showed normal first and second heart sounds. No gallop, rub or murmur. CHEST: Clear to auscultation. No crepitation or rhonchi. ABDOMEN: Distended, soft, nontender. NEUROLOGIC: She is awake, alert, responding appropriately. All cranial nerves intact. She moves extremities without difficulty. Her lab work this afternoon showed her white cell count was 6900, hemoglobin 12.8, hematocrit 38, MCV 91, and platelet count 247,000. Her chemistry showed that her serum sodium 140, potassium 4.4, chloride 106, bicarbonate 26, anion gap of 8, BUN 10, creatinine 0.8. ASSESSMENT AND PLAN: The patient was discharged back home to continue on all her medication. She was given 30 mg of prednisone and before discharge given the script for Medrol Dosepak. Meanwhile, should continue on her albuterol sulfate 1 puff every 6 hours, baclofen 10 mg 3 times a day, benzonatate for Tessalon Perles 100 mg 3 times a day, diclofenac sodium for Voltaren gel 1 gram topically 4 times a day, Trulicity 0.75 mg daily, duloxetine for Cymbalta 60 mg, she takes 120 mg at bedtime; fluticasone propionate for Flonase 1 spray to each nostril twice a day, Breo Ellipta 1 puff once a day, furosemide 40 mg twice a day, gabapentin 300 mg at bedtime, hydroxyzine 100 mg p.o. 4 times a day. She is on Levemir insulin 60 units subcutaneously daily, lamotrigine for Lamictal 100 mg, she takes 200 mg twice a day, levetiracetam for Keppra 500 mg twice a day, linaclotide for Linzess 290 mcg p.o. daily, metformin 500 mg, she takes 250 mg twice a day; metoprolol tartrate 25 mg twice a day, mirtazapine for Remeron 15 mg at bedtime, omeprazole 40 mg twice a day, oxcarbazepine 300 mg daily, oxcarbazepine 600 mg daily with supper; potassium chloride 10 mEq twice a day, quetiapine fumarate for Seroquel 200 mg at bedtime, quetiapine fumarate 25 mg p.o. daily, quetiapine fumarate 25 mg daily at 1600. She is on ranitidine 150 mg twice a day, rivaroxaban for Xarelto 20 mg daily, spironolactone 50 mg twice a day, tizanidine 4 mg at bedtime and Incruse Ellipta 62.5 mcg daily, zonisamide for Zonegran 100 mg capsule 2 capsules p.o. at bedtime. FINAL DISCHARGE DIAGNOSES: Allergic reaction to ASPIRIN and has multiple other medical problems including COPD, bronchial asthma, type 2 diabetes, coronary artery disease, status post PCI stent deployment, migraine headache and Botox injection every 3 months, obstructive sleep apnea, generalized osteoarthritis. ALEX ARELLANO MD DR: CELESTINO/douglas JOB#: [id number] / [id number]
== END 2019-02-01 16:20 | disposition home or self-care (01) ==
LOC: ER 20:34 → INTOOBSV 22:00 → 1 SOUTH 22:00
PROVIDERS: ADMIT Internal Medicine; ATTEND Internal Medicine
DX: T39.011A Poisoning by aspirin, accidental (unintentional), initial encounter (principal); J44.9 Chronic obstructive pulmonary disease, unspecified; F32.9 Major depressive disorder, single episode, unspecified; K21.9 Gastro-esophageal reflux disease without esophagitis; E78.00 Pure hypercholesterolemia, unspecified; F17.210 Nicotine dependence, cigarettes, uncomplicated; F12.90 Cannabis use, unspecified, uncomplicated; E11.9 Type 2 diabetes mellitus without complications; I25.10 Atherosclerotic heart disease of native coronary artery without angina pectoris; G47.33 Obstructive sleep apnea (adult) (pediatric); G43.909 Migraine, unspecified, not intractable, without status migrainosus; M15.9 Polyosteoarthritis, unspecified; Z96.653 Presence of artificial knee joint, bilateral; Z79.01 Long term (current) use of anticoagulants; Z79.4 Long term (current) use of insulin; Z79.899 Other long term (current) drug therapy; Z80.3 Family history of malignant neoplasm of breast; Z82.5 Family history of asthma and other chronic lower respiratory diseases; Z86.73 Personal history of transient ischemic attack (TIA), and cerebral infarction without residual deficits; Z90.710 Acquired absence of both cervix and uterus; Z90.49 Acquired absence of other specified parts of digestive tract; Z88.6 Allergy status to analgesic agent; Z88.1 Allergy status to other antibiotic agents; Z88.5 Allergy status to narcotic agent; Z88.8 Allergy status to other drugs, medicaments and biological substances; Z91.048 Other nonmedicinal substance allergy status; Z95.5 Presence of coronary angioplasty implant and graft; Z98.1 Arthrodesis status; Z98.41 Cataract extraction status, right eye; Z98.42 Cataract extraction status, left eye; R32 Unspecified urinary incontinence
CPT/HCPCS: 36415; 71045; 80048; 80076; 81001; 82947; 83735; 83880; 84484; 85007; 85025; 85610; 85730; 93005; 94640; 96374; 96375; 96376; 99284; 99406; G0378; G0379; J1200; J2405; J2930; J3490; J7120; J7512; J7613; J7620; 96361; 99285-25

== ENCOUNTER → 2019-02-10 | Outpatient (CLI) | payer OTHER ==
[2019-02-01 15:21] VITALS: BP 138/83
[~2019-02-10] MED LIST changes: +BARIUM SULFATE 98% 135 ML SUSP PO ONE
--- NOTE | 2019-02-10 12:50 | RAD ---
SMALL BOWEL SERIES 02/10/2019. Reason for study: Epigastric abdominal pain. Comparison studies: CT abdomen/pelvis January 14, 2019. Technique: Preliminary laborer tree tapping film of the abdomen was obtained. Then following ingestion of oral barium, serial images of the abdomen were obtained to assess progress of contrast throughout the small bowel. Once the contrast reached the colon, bilateral oblique and angled view of abdomen are obtained. Findings: Transit time through the small bowel is normal. No evidence for bowel obstruction or dilatation. Jejunal and ileal fold patterns are normal with no evidence for inflammatory bowel disease. The terminal ileum was unremarkable. Sacral nerve stimulator is present. Number of images: 18 IMPRESSION: Normal small bowel series. Electronically signed by: Julia Barcenas MD (02/10/2019 12:47 PM) [id number]
== END | disposition home or self-care (01) ==
LOC: RAD 08:19
PROVIDERS: ATTEND Internal Medicine Gastroenterology
DX: R10.13 Epigastric pain (principal)
CPT/HCPCS: 74250

== ENCOUNTER 2019-03-17 21:03 | Emergency (ER) | payer OTHER ==
[~2019-03-17] VITALS: Ht 167.6 cm; Wt 91.6 kg
[~2019-03-17 21:03] MED LIST changes: -BARIUM SULFATE 98% 135 ML SUSP PO ONE; +DEXTROSE 50% 25 GM / 50ML DISP.SYRIN. IV ONE; +ERYTHROMYCIN 0.5% OPHTH OINTMENT 1GM TUBE. ONE; +ETOMIDATE 40 MG/20 ML VIAL. IV ONE; +MIDAZOLAM HCL PF 5 MG/5 ML VIAL. ONE; +PROPOFOL 10,000 MCG/ML (100ML) VIAL IV ONE; +SUCCINYLCHOLINE 200 MG/10 ML VIAL. ONE
[2019-03-17] MEDS ORDERED: methylPREDNISolone SOD SUCC PF 125 MG/2 ML VIAL. ONE (21:36)
[2019-03-17] MEDS ORDERED: cefTRIAXone SODIUM 1 GM VIAL ONE (21:45)
[2019-03-17] MEDS ORDERED: IV NORMAL SALINE 50ML 50 ML ONE (21:45)
[2019-03-17] MEDS ORDERED: ERYTHROMYCIN 0.5% OPHTH OINTMENT 1GM TUBE. ONE (21:46)
[2019-03-17] MEDS ORDERED: SUCCINYLCHOLINE 200 MG/10 ML VIAL. ONE (21:46)
[2019-03-17] MEDS ORDERED: IV RINGERS SOLUTION,LACTATED 1,000 ML IV SCH ×2 (22:22→23:30)
--- NOTE | 2019-03-17 22:30 | ED.ADGEN ---
Past History Past Medical History: Angina, Arthritis, COPD, CVA, Depression, Diabetes, GERD, High Cholesterol, Stroke, TIA Past Surgical History: Cholecystectomy, Hysterectomy, Knee Replacement Smoking: Cigarettes, Greater than 1 pack/day Alcohol Use: None Drug Use: Marijuana Adult General Chief Complaint Chief Complaint - Found unconscious, non-responsive, empty Lantus Insulin and empty botttle hydrocodone at bedside,- glucose 60, cuts to both wrists.) Non-responsive to noxious stimuli. Pt. did receive Narcan and Glucose prior to arrival. Bystanders at scene suggested she was attempting suicide. Pt. reportedly verbal and at baseline physically 1 hour before ear machine operator were called. HPI HPI Patient is a 48 year old female who presents with above hx. Pt. snoring respiration with no gag. Pt. does not respond to noxious stimuli. Patient has obvious 3 lacerations to 2 to left wrist both 12 cm each. Has a 11 cm laceration to right wrist. Trachea midline. Pupils are 4 mm and responsive to light. Rhonchi throughout lung mercado. Pt. promptly intubated for air protection. Hypothermic. See Code sheet. Suspect suicide attempt. No family present to interview. Records show Dr. Savage primary. Record shows past history of angina, arthritis, COPD, CVA, depression, diabetes, GERD, elevated cholesterol, CVA, TIAs, and tobacco abuse. Review of Systems Review of Systems Not available - respiratory failure Family History Family History Not available currently Current Medications Current Medications Current Medications Medications (Trade) Dose Ordered Sig/Indira Start Time Stop Time Status Last Admin Dose Admin Bacitracin/ Polymyxin B Sulfate (Polysporin Opth) 0.25 inch 1X ONCE 03/18/19 02:30 03/18/19 02:31 Ceftriaxone Sodium 1 gm/ Sodium Chloride 50 ml @ 100 mls/hr 1X ONCE 03/17/19 23:00 03/17/19 23:29 DC 03/17/19 22:25 100 MLS/HR Ceftriaxone Sodium (Rocephin) 1 gm STK-MED ONCE 03/17/19 21:45 03/17/19 21:46 DC Dextrose 1,000 ml @ 75 mls/hr 1X ONCE 03/18/19 01:30 03/18/19 14:49 03/18/19 01:14 75 MLS/HR Dextrose (Dextrose 50%-Water Syringe) 50 gm 1X ONCE 03/18/19 01:00 03/18/19 01:03 DC 03/18/19 00:59 50 GM Dextrose (Dextrose 25% Syringe) 10 ml STK-MED ONCE 03/18/19 00:53 03/18/19 00:54 DC Diphtheria/ Tetanus/Acell Pertussis (Boostrix) 0.5 ml ONCE ONCE 03/18/19 00:30 03/18/19 00:31 DC 03/18/19 00:29 0.5 ML Erythromycin (Romycin) 1 inch STK-MED ONCE 03/17/19 21:46 03/17/19 21:47 DC Gelatin (Gelfoam Size 12-7mm) 1 each 1X ONCE 03/18/19 02:00 03/18/19 02:01 DC 03/18/19 01:57 1 EACH Lactated Ringer's 1,000 ml @ 1,000 mls/hr 1X ONCE 03/18/19 01:00 03/18/19 01:59 DC 03/17/19 23:15 1,000 MLS/HR Methylprednisolone Sodium Succinate (SOLU-Medrol 125MG VIAL) 125 mg STK-MED ONCE 03/17/19 21:36 03/17/19 21:37 DC Metronidazole 100 ml @ 100 mls/hr 1X ONCE 03/18/19 00:30 03/18/19 01:29 DC 03/18/19 00:30 100 MLS/HR Potassium Chloride 100 ml @ 100 mls/hr Q1H 03/18/19 00:30 03/18/19 04:29 Propofol (Diprivan) 200,000 mcg 1X ONCE 03/17/19 22:45 03/17/19 22:48 DC 03/17/19 22:20 200,000 MCG Sodium Chloride 50 ml @ As Directed STK-MED ONCE 03/17/19 21:45 03/17/19 21:46 DC Succinylcholine Chloride (Anectine) 200 mg STK-MED ONCE 03/17/19 21:46 03/17/19 21:47 DC Home meds not currently available Allergies Allergies Allergies Coded Allergies Type Severity Reaction Last Updated Verified aspirin Allergy Severe Shortness of Air 01/05/17 Yes adhesive tape Allergy Intermediate 05/23/17 Yes chlordiazepoxide Allergy Intermediate Swelling 05/23/17 Yes clidinium Allergy Intermediate Swelling 05/23/17 Yes erythromycin base Allergy Intermediate Hives 01/05/17 Yes fentanyl Allergy Intermediate 05/23/17 Yes ibuprofen Allergy Intermediate Hives 01/05/17 Yes loratadine Allergy Intermediate Itching 02/01/19 Yes morphine Allergy Intermediate Swelling 05/23/17 Yes Physical Exam Physical Exam Constitutional: in acute distress, non-toxic appearance. [] HENT: Normocephalic, atraumatic, bilateral external ears normal, oropharynx vamshi st, no oral exudates, nose normal. [] Eyes: PERRLA, , conjunctiva normal, no discharge. [] Neck: [] Snoring. Trache mid line. Old surgery scar. Cardiovascular: Tachycardia Heart rate regular rhythm, no murmur , PMI to Lt. Lungs & Thorax: Bilateral breath sounds equal with scattered rhonchi and wheezing on auscultation [] Abdomen: Bowel sounds decreased, soft, no tenderness, no masses, no pulsatile masses. Obese. Injection masterson - Insulin? Old surgery scars. Skin: Warm, dry, no erythema, no rash. [] Back: No obvious injury Extremities: No obvious injury other than lacerations to both wrists. Surgical scars knees. Neurologic:Non-responsive to noxious stimuli Psychologic: Non-responsive Current Patient Data Vital Signs Vital Signs Date Time Temp Pulse Resp B/P (MAP) Pulse Ox O2 Delivery O2 Flow Rate FiO2 03/18/19 02:08 95.8 03/18/19 01:17 59 18 128/82 (97) 100 Ventilator Lab Results Laboratory Tests Test 03/17/19 21:55 03/17/19 22:00 03/17/19 22:10 03/17/19 22:55 Urine Collection Type U cath Urine Color Yellow Urine Clarity Hazy Urine pH 5.5 Urine Specific Stuart 1.025 Urine Protein 100 mg/dl (NEG-TRACE) Urine Glucose (UA) 250 mg/dL (NEG) Urine Ketones (Stick) 15 mg/dL (NEG) Urine Blood Neg (NEG) Urine Nitrite Neg (NEG) Urine Bilirubin Neg (NEG) Urine Urobilinogen Dipstick 1 mg/dL (0.2 mg/dL) Urine Leukocyte Esterase Neg (NEG) Urine RBC 0 /HPF (0-2) Urine WBC Occ /HPF (0-4) Urine Squamous Epithelial Cells Few /LPF Urine Bacteria Few /HPF (0-FEW) White Blood Count 8.6 x10^3/uL (4.0-11.0) Red Blood Count 4.27 x10^6/uL (3.50-5.40) Hemoglobin 13.0 g/dL (12.0-15.5) Hematocrit 39.1 % (36.0-47.0) Mean Corpuscular Volume 92 fL (79-100) Mean Corpuscular Hemoglobin 30 pg (25-35) Mean Corpuscular Hemoglobin Concent 33 g/dL (31-37) Red Cell Distribution Width 14.4 % (11.5-14.5) Platelet Count 272 x10^3/uL (140-400) Neutrophils (%) (Auto) 73 % (31-73) Lymphocytes (%) (Auto) 18 % (24-48) L Monocytes (%) (Auto) 9 % (0-9) Eosinophils (%) (Auto) 0 % (0-3) Basophils (%) (Auto) 0 % (0-3) Neutrophils # (Auto) 6.3 x10^3uL (1.8-7.7) Lymphocytes # (Auto) 1.5 x10^3/uL (1.0-4.8) Monocytes # (Auto) 0.7 x10^3/uL (0.0-1.1) Eosinophils # (Auto) 0.0 x10^3/uL (0.0-0.7) Basophils # (Auto) 0.0 x10^3/uL (0.0-0.2) Prothrombin Time 16.2 SEC (9.4-11.4) H Prothrombin Time INR 1.7 (0.9-1.1) H PTT 33 SEC (23-33) D-Dimer (Mari) 0.34 mg/L (0.00-0.50) Sodium Level 141 mmol/L (136-145) Potassium Level 2.5 mmol/L (3.5-5.1) *L Chloride Level 106 mmol/L (98-107) Carbon Dioxide Level 24 mmol/L (21-32) Anion Gap 11 (6-14) Blood Urea Nitrogen 11 mg/dL (7-20) Creatinine 0.9 mg/dL (0.6-1.0) Estimated GFR (Cockcroft-Gault) 66.3 Glucose Level 106 mg/dL (70-99) H Lactic Acid Level 2.2 mmol/L (0.4-2.0) H Calcium Level 9.6 mg/dL (8.5-10.1) Magnesium Level 2.2 mg/dL (1.8-2.4) Total Bilirubin 0.3 mg/dL (0.2-1.0) Direct Bilirubin 0.1 mg/dL (0.0-0.2) Aspartate Amino Transferase (AST) 10 U/L (15-37) L Alanine Aminotransferase (ALT) 14 U/L (14-59) Alkaline Phosphatase 158 U/L (46-116) H Creatine Kinase 69 U/L (26-192) Troponin I Quantitative 0.032 ng/mL (0-0.055) BV-Pfc-R-Type Natriuretic Peptide 336 pg/mL (0-124) H Total Protein 6.2 g/dL (6.4-8.2) L Albumin 3.4 g/dL (3.4-5.0) Lipase 48 U/L (73-393) L Salicylates Level 5.0 mg/dL (2.8-20.0) Salicylate Last Dose Date Unknown Salicylate Last Dose Time Unknown Urine Opiates Screen Pos (NEG) Urine Methadone Screen Neg (NEG) Acetaminophen Level < 2 mcg/mL (10-30) L Acetaminophen Last Dose Date Unknown Acetaminophen Last Dose Time Unknown Urine Barbiturates Neg (NEG) Urine Phencyclidine Screen Neg (NEG) Urine Amphetamine/Methamphetamine Pos (NEG) Urine Benzodiazepines Screen Pos (NEG) Urine Cocaine Screen Neg (NEG) Urine Cannabinoids Screen Pos (NEG) Ethyl Alcohol Level < 10 mg/dL (0-10) Urine Ethyl Alcohol Neg (NEG) Blood pH 7.34 (7.35-7.45) L Blood Gas PCO2 40 mmHg (35-45) Blood Gas PO2 42 mmHg (80-100) *L Blood Gas HCO3 22 mmol/L (22-26) Arterial Bld O2 Saturation (Calc) 81 % (92-99) L FiO2 100 % Test 03/18/19 01:23 03/18/19 01:52 Glucose (Fingerstick) 231 mg/dL (70-99) H 139 mg/dL (70-99) H EKG EKG My interpretation of EKG shows a sinus tachycardia 101 bpm. Does have a nonspecific contour wave changes in anterior lateral leads P. There is some T- wave abnormalities. No findings acute STEMI of contralateral changes.[] Radiology/Procedures Radiology/Procedures My interpretation of initial chest x-ray shows ET near right mainstem. Central line in place. Cardiomegaly. NG appears to be at cardiac junction. And has a left lower lobe infiltrate or atelectasis. Repeat chest x-ray shows adequate placement of ET tube. Adequate placement of central line. Hardware neck. Adequate placement of NG. Still has a left lower lobe infiltrate or atelectasis. See formal reports when available[] Course & Med Decision Making Course & Med Decision Making Pertinent Labs and Imaging studies reviewed. (See chart for details) Discussed presentation, testing and tx plan with Dr. Laws - he will accept pt. in transfer to ICU at [facility]. Critical Care- 120 min. ( Not including Procedures.) Procedure Note- Intubation- Pt. intubated to protect airway. No gag. Mallampati 2. Succinylcholine 100 mg and Versed 5 mg ET 7.5 placed 22 cm- reposition to 21 at teeth post x-ray. CO2 change, fog, Breath sounds apexes, No breaths sounds over stomach. Increased saturations. Vent setting titrated for TV and pressure. OG placed with return gastric contents. Central Line - Need for multiple draws and IV access. Rt. IJ prepped with Kit. nanotechnician. Gown, hat, mask gown, gloves, drapes. Place triple lumen by Seldinger technique. Venous return all 3 ports. Biopatch. Sutured in placed OpSite placed. Adequate placement by chest x-ray. Laceration repair- clean lacerations with Betadine. An saline. Closed lac erations with reanna 12 on left wrist. 11 reanna on right wrist. Lacerations were 12 cm 2 left wrist. Laceration 11 cm right wrist. Sterile dressing applied. [] Final Impression Final Impression 1. Respiratory Failure 2. Suspect OD Suicide attempt with narcotics, insulin and benzodiazepine 3. Suspect suicide attempt by cutting her wrist 4. Hypothermia -initial rectal temp. 92.9 5. Critical Hypokalemia 2.5 6. Lactic Acid 2.2 7. Recurrent Hypoglycemia 8. History of marijuana, methamphetamine , tobacco & use-polysubstance abuse Critical care flow sheet for details. Dragon Disclaimer Dragon Disclaimer This electronic medical record was generated, in whole or in part, using a voice recognition dictation system. Discharge Summary Visit Information Final Diagnosis Problems Medical Problems: (1) Respiratory failure Status: Acute (2) Suicidal overdose Status: Acute Brief Hospital Course Allergies Allergies Coded Allergies Type Severity Reaction Last Updated Verified aspirin Allergy Severe Shortness of Air 01/05/17 Yes adhesive tape Allergy Intermediate 05/23/17 Yes chlordiazepoxide Allergy Intermediate Swelling 05/23/17 Yes clidinium Allergy Intermediate Swelling 05/23/17 Yes erythromycin base Allergy Intermediate Hives 01/05/17 Yes fentanyl Allergy Intermediate 05/23/17 Yes ibuprofen Allergy Intermediate Hives 01/05/17 Yes loratadine Allergy Intermediate Itching 02/01/19 Yes morphine Allergy Intermediate Swelling 05/23/17 Yes Vital Signs Vital Signs Date Time Temp Pulse Resp B/P (MAP) Pulse Ox O2 Delivery O2 Flow Rate FiO2 03/18/19 02:08 95.8 03/18/19 01:17 59 18 128/82 (97) 100 Ventilator Lab Results Laboratory Tests Test 03/17/19 21:55 03/17/19 22:00 03/17/19 22:10 03/17/19 22:55 Urine Collection Type U cath Urine Color Yellow Urine Clarity Hazy Urine pH 5.5 Urine Specific Stuart 1.025 Urine Protein 100 mg/dl (NEG-TRACE) Urine Glucose (UA) 250 mg/dL (NEG) Urine Ketones (Stick) 15 mg/dL (NEG) Urine Blood Neg (NEG) Urine Nitrite Neg (NEG) Urine Bilirubin Neg (NEG) Urine Urobilinogen Dipstick 1 mg/dL (0.2 mg/dL) Urine Leukocyte Esterase Neg (NEG) Urine RBC 0 /HPF (0-2) Urine WBC Occ /HPF (0-4) Urine Squamous Epithelial Cells Few /LPF Urine Bacteria Few /HPF (0-FEW) White Blood Count 8.6 x10^3/uL (4.0-11.0) Red Blood Count 4.27 x10^6/uL (3.50-5.40) Hemoglobin 13.0 g/dL (12.0-15.5) Hematocrit 39.1 % (36.0-47.0) Mean Corpuscular Volume 92 fL (79-100) Mean Corpuscular Hemoglobin 30 pg (25-35) Mean Corpuscular Hemoglobin Concent 33 g/dL (31-37) Red Cell Distribution Width 14.4 % (11.5-14.5) Platelet Count 272 x10^3/uL (140-400) Neutrophils (%) (Auto) 73 % (31-73) Lymphocytes (%) (Auto) 18 % (24-48) Monocytes (%) (Auto) 9 % (0-9) Eosinophils (%) (Auto) 0 % (0-3) Basophils (%) (Auto) 0 % (0-3) Neutrophils # (Auto) 6.3 x10^3uL (1.8-7.7) Lymphocytes # (Auto) 1.5 x10^3/uL (1.0-4.8) Monocytes # (Auto) 0.7 x10^3/uL (0.0-1.1) Eosinophils # (Auto) 0.0 x10^3/uL (0.0-0.7) Basophils # (Auto) 0.0 x10^3/uL (0.0-0.2) Prothrombin Time 16.2 SEC (9.4-11.4) Prothromb Time International Ratio 1.7 (0.9-1.1) Activated Partial Thromboplast Time 33 SEC (23-33) D-Dimer (Mari) 0.34 mg/L (0.00-0.50) Sodium Level 141 mmol/L (136-145) Potassium Level 2.5 mmol/L (3.5-5.1) Chloride Level 106 mmol/L (98-107) Carbon Dioxide Level 24 mmol/L (21-32) Anion Gap 11 (6-14) Blood Urea Nitrogen 11 mg/dL (7-20) Creatinine 0.9 mg/dL (0.6-1.0) Estimated GFR (Cockcroft-Gault) 66.3 Glucose Level 106 mg/dL (70-99) Lactic Acid Level 2.2 mmol/L (0.4-2.0) Calcium Level 9.6 mg/dL (8.5-10.1) Magnesium Level 2.2 mg/dL (1.8-2.4) Total Bilirubin 0.3 mg/dL (0.2-1.0) Direct Bilirubin 0.1 mg/dL (0.0-0.2) Aspartate Amino Transf (AST/SGOT) 10 U/L (15-37) Alanine Aminotransferase (ALT/SGPT) 14 U/L (14-59) Alkaline Phosphatase 158 U/L (46-116) Creatine Kinase 69 U/L (26-192) Troponin I Quantitative 0.032 ng/mL (0-0.055) RA-Dcg-U-Type Natriuretic Peptide 336 pg/mL (0-124) Total Protein 6.2 g/dL (6.4-8.2) Albumin 3.4 g/dL (3.4-5.0) Lipase 48 U/L (73-393) Salicylates Level 5.0 mg/dL (2.8-20.0) Salicylate Last Dose Date Unknown Salicylate Last Dose Time Unknown Urine Opiates Screen Pos (NEG) Urine Methadone Screen Neg (NEG) Acetaminophen Level < 2 mcg/mL (10-30) Acetaminophen Last Dose Date Unknown Acetaminophen Last Dose Time Unknown Urine Barbiturates Neg (NEG) Urine Phencyclidine Screen Neg (NEG) Urine Amphetamine/Methamphetamine Pos (NEG) Urine Benzodiazepines Screen Pos (NEG) Urine Cocaine Screen Neg (NEG) Urine Cannabinoids Screen Pos (NEG) Ethyl Alcohol Level < 10 mg/dL (0-10) Urine Ethyl Alcohol Neg (NEG) Blood Gas pH 7.34 (7.35-7.45) Blood Gas PCO2 40 mmHg (35-45) Blood Gas PO2 42 mmHg (80-100) Blood Gas HCO3 22 mmol/L (22-26) Arterial Bld O2 Saturation (Calc) 81 % (92-99) FiO2 100 % Test 03/18/19 01:23 03/18/19 01:52 Glucose (Fingerstick) 231 mg/dL (70-99) 139 mg/dL (70-99) Brief Hospital Course Ms. Haile is a 48 old female who presented with respiratory failure and suspect suicide attempt by OD meds, insulin and cutting her wrists. Transfer to [facility] - Dr. Laws accepting. Discharge Information Condition at Discharge: Improved Dischare Medications Current Medications Methylprednisolone Sodium Succinate (SOLU-Medrol 125MG VIAL) 125 mg STK-MED ONCE .ROUTE ; Start 03/17/19 at 21:36; Stop 03/17/19 at 21:37; Status DC Sodium Chloride 50 ml @ As Directed STK-MED ONCE .ROUTE ; Start 03/17/19 at 21:45; Stop 03/17/19 at 21:46; Status DC Ceftriaxone Sodium (Rocephin) 1 gm STK-MED ONCE .ROUTE ; Start 03/17/19 at 21:45; Stop 03/17/19 at 21:46; Status DC Erythromycin (Romycin) 1 inch STK-MED ONCE .ROUTE ; Start 03/17/19 at 21:46; Stop 03/17/19 at 21:47; Status DC Metronidazole 100 ml @ As Directed STK-MED ONCE IV ; Start 03/17/19 at 21:46; Stop 03/17/19 at 21:47; Status DC Succinylcholine Chloride (Anectine) 200 mg STK-MED ONCE .ROUTE ; Start 03/17/19 at 21:46; Stop 03/17/19 at 21:47; Status DC Lactated Ringer's 1,000 ml @ 2,000 mls/hr Q30M IV Last administered on 03/17/19at 22:22; Admin Dose 2,000 MLS/HR; Start 03/17/19 at 22:22; Stop 03/17/19 at 22:51; Status DC Lactated Ringer's 1,000 ml @ 100 mls/hr Q10H IV Last administered on 03/17/19at 00:25; Admin Dose 100 MLS/HR; Start 03/17/19 at 23:30; Stop 03/18/19 at 09:29 Ceftriaxone Sodium 1 gm/ Sodium Chloride 50 ml @ 100 mls/hr 1X ONCE IV Last administered on 03/17/19at 22:25; Admin Dose 100 MLS/HR; Start 03/17/19 at 23:00; Stop 03/17/19 at 23:29; Status DC Propofol (Diprivan) 200,000 mcg 1X ONCE IV Last administered on 03/17/19at 22:20; Admin Dose 200,000 MCG; Start 03/17/19 at 22:45; Stop 03/17/19 at 22:48; Status DC Potassium Chloride 100 ml @ 50 mls/hr Q1H IV Last administered on 03/18/19at 01:33; Admin Dose 50 MLS/HR; Start 03/17/19 at 23:15; Stop 03/18/19 at 00:44; Status DC Diphtheria/ Tetanus/Acell Pertussis (Boostrix) 0.5 ml ONCE ONCE VAX IM Last administered on 03/18/19at 00:29; Admin Dose 0.5 ML; Start 03/18/19 at 00:30; Stop 03/18/19 at 00:31; Status DC Metronidazole 100 ml @ 100 mls/hr 1X ONCE IV Last administered on 03/18/19at 00:30; Admin Dose 100 MLS/HR; Start 03/18/19 at 00:30; Stop 03/18/19 at 01:29; Status DC Potassium Chloride 100 ml @ 50 mls/hr Q1H IV ; Start 03/17/19 at 23:45; Stop 03/18/19 at 01:44; Status UNV Lactated Ringer's 1,000 ml @ 75 mls/hr 1X ONCE IV ; Start 03/18/19 at 00:30; Stop 03/18/19 at 13:49 Potassium Chloride 100 ml @ 100 mls/hr Q1H IV ; Start 03/18/19 at 00:30; Stop 03/18/19 at 04:29 Lactated Ringer's 1,000 ml @ 1,000 mls/hr 1X ONCE IV Last administered on 03/17/19at 23:15; Admin Dose 1,000 MLS/HR; Start 03/18/19 at 01:00; Stop 03/18/19 at 01:59; Status DC Dextrose (Dextrose 25% Syringe) 10 ml STK-MED ONCE IV ; Start 03/18/19 at 00:53; Stop 03/18/19 at 00:54; Status DC Dextrose (Dextrose 50%-Water Syringe) 50 gm 1X ONCE IV Last administered on 03/18/19at 00:59; Admin Dose 50 GM; Start 03/18/19 at 01:00; Stop 03/18/19 at 01:03; Status DC Dextrose 500 ml @ 500 mls/hr 1X ONCE IV ; Start 03/18/19 at 01:30; Stop 03/18/19 at 02:29; Status DC Dextrose 1,000 ml @ 75 mls/hr 1X ONCE IV Last administered on 03/18/19at 01:14; Admin Dose 75 MLS/HR; Start 03/18/19 at 01:30; Stop 03/18/19 at 14:49 Gelatin (Gelfoam Size 12-7mm) 1 each 1X ONCE TP Last administered on 03/18/19at 01:57; Admin Dose 1 EACH; Start 03/18/19 at 02:00; Stop 03/18/19 at 02:01; Status DC Bacitracin/ Polymyxin B Sulfate (Polysporin Opth) 0.25 inch 1X ONCE OU ; Start 03/18/19 at 02:30; Stop 03/18/19 at 02:31 Active Scripts Active Tessalon Perle (Benzonatate) 100 Mg Capsule 1 Cap PO TID Omeprazole 40 Mg Capsule.dr 1 Cap PO BID 30 Days Reported Incruse Ellipta (Umeclidinium [place]) 62.5 Mcg Blst.w.dev 62.5 Mcg IH DAILY Potassium Chloride 10 Meq Tablet.er 10 Meq PO BID Lasix (Furosemide) 40 Mg Tablet 40 Mg PO BID Levemir (Insulin Detemir) 100 Unit/1 Ml Vial 16 Unit SQ DAILY Voltaren (Diclofenac Sodium) 100 Gm Gel..gram. 1 Gm TP QID Remeron (Mirtazapine) 15 Mg Tablet 1 Tab PO QHS Trulicity (Dulaglutide) 0.75 Mg/0.5 Ml Pen.injctr 0.75 Mg SQ DAILY Seroquel (Quetiapine Fumarate) 25 Mg Tablet 25 Mg PO DAILY16 Seroquel (Quetiapine Fumarate) 25 Mg Tablet 25 Mg PO DAILY Breo Ellipta 100-25 Mcg Inh (Fluticasone/Vilanterol) 1 Each Aer.pow.ba 1 Puff IH DAILY Zonegran (Zonisamide) 100 Mg Capsule 2 Cap PO QHS Fluticasone Propionate Nasal [place] (Fluticasone Propionate) 16 Gm [place].susp 2 Spr NS BID Metoprolol Tartrate 25 Mg Tablet 1 Tab PO BID Seroquel (Quetiapine Fumarate) 200 Mg Tablet 1 Tab PO QHS Xarelto (Rivaroxaban) 10 Mg Tablet 20 Mg PO DAILY Baclofen 10 Mg Tablet 1 Tab PO TID Spironolactone 50 Mg Tablet 1 Tab PO BID Lamictal (Lamotrigine) 100 Mg Tablet 2 Tab PO BID Tizanidine Hcl (Tizanidine HCl) 4 Mg Tablet 4 Mg PO PRN QHS PRN Gabapentin (Gabapentin) 300 Mg Capsule 300 Mg PO HS Ranitidine Hcl 150 Mg Tablet 1 Tab PO BID Keppra (Levetiracetam) 500 Mg Tablet 1,000 Mg PO BID Oxcarbazepine 300 Mg Tablet 2 Tab PO DAILYWSUP Oxcarbazepine 300 Mg Tablet 1 Tab PO DAILYWBKFT Cymbalta (Duloxetine Hcl) 60 Mg Capsule.dr 2 Cap PO QHS Metformin Hcl 500 Mg Tablet 0.5 Tab PO BID Proair Hfa Inhaler (Albuterol Sulfate) 8.5 Gm Hfa.aer.ad 1 Puff INH PRN Q6HRS PRN Hydroxyzine Hcl 25 Mg Tablet 100 Mg PO QIDPRN PRN Linzess (Linaclotide) 290 Mcg Capsule 290 Mcg PO DAILY Art Disclaimer This chart was dictated in whole or in part using Voice Recognition software in a busy, high-work load, and often noisy Emergency Department environment. It may contain unintended and wholly unrecognized errors or omissions. SARAH WEBB MD Mar 17, 2019 22:30
[2019-03-17 22:44] LABS: BASO % 0 % (0-3); EOS % 0 % (0-3); HEMATOCRIT 39.1 % (36.0-47.0); LYMPH # 1.5 x10^3/uL (1.0-4.8); LYMPH % 18 % (24-48); MEAN CORPUSCULAR HEMOGLOBIN 30 pg (25-35); MEAN CORPUSCULAR HGB CONC 33 g/dL (31-37); MEAN CORPUSCULAR VOLUME 92 fL (79-100); MONO # 0.7 x10^3/uL (0.0-1.1); MONO % 9 % (0-9); NEUT # 6.3 x10^3uL (1.8-7.7); NEUT % 73 % (31-73); PLATELET COUNT 272 x10^3/uL (140-400); RED BLOOD COUNT 4.27 x10^6/uL (3.50-5.40); RED CELL DISTRIBUTION WIDTH 14.4 % (11.5-14.5); WHITE BLOOD COUNT 8.6 x10^3/uL (4.0-11.0)
[2019-03-17] MEDS ORDERED: PROPOFOL 10,000 MCG/ML (20ML) VIAL IV ONE (22:45)
[2019-03-17 22:46] LABS: CLARITY,URINE HAZY; COLOR,URINE YELLOW
[2019-03-17 22:47] LABS: BARBITURATES NEG (NEG); BENZODIAZEPINES POS (NEG); CANNABINOIDS POS (NEG); COCAINE NEG (NEG); METHADONE NEG (NEG); OPIATES POS (NEG); PHENCYCLIDINE NEG (NEG)
[2019-03-17 22:47] LABS: BACTERIA,URINE FEW /HPF (0-FEW); BILIRUBIN,URINE NEG (NEG); GLUCOSE,URINE 250 mg/dL (NEG); NITRITE,URINE NEG (NEG); RBC,URINE 0 /HPF (0-2); SQUAMOUS EPITHELIAL CELL,UR FEW /LPF; UROBILINOGEN,URINE 1 mg/dL (0.2 mg/dL); WBC,URINE OCC /HPF (0-4)
[2019-03-17 22:48] LABS: AMPHETAMINE/METHAMPHETAMINE POS (NEG)
[2019-03-17 22:49] LABS: ETHANOL < 10 mg/dL (0-10)
[2019-03-17 22:53] LABS: ACETAMIN < 2 mcg/mL (10-30)
[2019-03-17 23:00] LABS: ALBUMIN 3.4 g/dL (3.4-5.0); CALCIUM 9.6 mg/dL (8.5-10.1); CREATININE 0.9 mg/dL (0.6-1.0); DIRECT BILIRUBIN 0.1 mg/dL (0.0-0.2); GFR 66.3; MAGNESIUM 2.2 mg/dL (1.8-2.4); TOTAL BILIRUBIN 0.3 mg/dL (0.2-1.0); TOTAL PROTEIN 6.2 g/dL (6.4-8.2)
[2019-03-17 23:02] LABS: POTASSIUM 2.5 mmol/L (3.5-5.1)
--- NOTE | 2019-03-17 23:07 | RAD ---
PORTABLE CHEST 1V History: Post endotracheal tube and nasogastric adjustment Comparison: Exam earlier the same day Findings: Single view of the chest is submitted. Endotracheal tube tip terminates about only 2 cm from janeth. Enteric catheter courses into the stomach. There is again left base opacity and obscured left hemidiaphragm. No pneumothorax is identified. There is volume loss of left lung base. There is cervical fusion hardware. There is again right internal jugular venous catheter with the tip in the superior vena cava. There is again widening of the acromioclavicular distances bilaterally. Impression: 1. There are support catheters and tubes as stated. There is again left base opacity likely component of pleural fluid with adjacent atelectasis or infiltrate and probable component of left lower lobe collapse given volume loss. Electronically signed by: Mehul Pacheco MD (03/17/2019 11:04 PM) [facility]
--- NOTE | 2019-03-17 23:24 | RAD ---
PORTABLE CHEST 1V History: Post intubation and central line, found unresponsive Comparison: January 31, 2019 Findings: Single view of the chest is submitted. There is gas distention of stomach. There is endotracheal tube with the tip at the orifice of the right mainstem bronchus. There is enteric catheter although the tip in the distal esophagus, does not course into the stomach. There is right internal jugular venous catheter tip in the mid to inferior aspect of the superior vena cava. No pneumothorax is identified. There is some volume loss of the left hemithorax, also left base opacity and obscured left hemidiaphragm. There is cervical fusion hardware. Impression: 1. Endotracheal tube tip terminates in the right mainstem bronchus proximally. Enteric catheter tip terminates in region of distal esophagus. Both endotracheal tube and enteric catheter have already been repositioned and exam repeated since time of image acquisition and interpretation of this exam. 2. There is left base opacity likely pleural fluid with adjacent atelectasis/infiltrate and possible degree of left lower lobe collapse given volume loss. 3. There is some gas distention of the stomach. Electronically signed by: Mehul Pacheco MD (03/17/2019 11:21 PM) [facility]
[2019-03-17] MEDS: POTASSIUM CHLORIDE 20MEQ 100 ML IV SCH (23:34)
[2019-03-17] MEDS ORDERED: POTASSIUM CHLORIDE 20MEQ 100 ML IV SCH (23:45)
[2019-03-17 23:48] LABS: BGAS PH 7.34 (7.35-7.45)
[2019-03-18] MEDS ORDERED: IV RINGERS SOLUTION,LACTATED 1,000 ML IV ONE ×2 (00:30→01:00)
[2019-03-18] MEDS ORDERED: DIPHTH,PERTUSS(ACELL),TET TOX 0.5 ML DISP.SYRIN. VAX IM ONE (00:30)
[2019-03-18] MEDS ORDERED: POTASSIUM CHLORIDE 10MEQ 100 ML IV SCH (00:30)
[2019-03-18] MEDS ORDERED: DEXTROSE 25% 10 ML DISP.SYRIN. IV ONE (00:53)
[2019-03-18] MEDS ORDERED: DEXTROSE 50% 25 GM / 50ML DISP.SYRIN. IV ONE (01:00)
[2019-03-18] MEDS ORDERED: IV DEXTROSE 10% 1,000 ML IV ONE (01:30)
[2019-03-18] MEDS ORDERED: IV DEXTROSE 10% 500 ML IV ONE (01:30)
[2019-03-18] MEDS: POTASSIUM CHLORIDE 20MEQ 100 ML IV SCH (01:33)
[2019-03-18 01:47] VITALS: BP 131/64
[2019-03-18] MEDS ORDERED: GELATIN SPONGE SIZE 12-7MM SPONGE. TP ONE (02:00)
[2019-03-18] MEDS ORDERED: BACITRACIN/POLYMYXIN B OPHTH OINTMENT 3.5GM TUBE. OU ONE (02:30)
[2019-03-18] MEDS ORDERED: MIDAZOLAM HCL PF 5 MG/5 ML VIAL. IV ONE (03:45)
[2019-03-18] MEDS ORDERED: SUCCINYLCHOLINE 200 MG/10 ML VIAL. IV ONE (03:45)
[2019-03-18] MEDS ORDERED: methylPREDNISolone SOD SUCC PF 125 MG/2 ML VIAL. IV ONE (03:45)
--- NOTE | 2019-03-20 07:40 | EKG ---
[address] [id number] Test Date: 2019-03-17 Test Time: 21:09:36 Pat Name: RAFAEL VANCE Department: Room: Gender: F Slitter Scorer: : [id number] Requested By: SARAH WEBB Order Number: [id number] Reading MD: Measurements Intervals [place] Rate: 101 P: 72 MN: 166 QRS: 67 QRSD: 102 T: 43 QT: 390 QTc: 506 Interpretive Statements SINUS TACHYCARDIA QRS(T) CONTOUR ABNORMALITY CONSIDER ANTEROLATERAL MYOCARDIAL DAMAGE T ABNORMALITY IN INFERIOR LEADS ABNORMAL ECG RI6.01 No previous ECG available for comparison
== END 2019-03-18 02:10 | disposition short-term general hospital (02) ==
LOC: ER 21:03
DX: S61.512A Laceration without foreign body of left wrist, initial encounter (principal); S61.511A Laceration without foreign body of right wrist, initial encounter; T40.602A Poisoning by unspecified narcotics, intentional self-harm, initial encounter; T38.3X2A Poisoning by insulin and oral hypoglycemic [antidiabetic] drugs, intentional self-harm, initial encounter; T42.4X2A Poisoning by benzodiazepines, intentional self-harm, initial encounter; J96.90 Respiratory failure, unspecified, unspecified whether with hypoxia or hypercapnia; T68.XXXA Hypothermia, initial encounter; E87.6 Hypokalemia; E11.649 Type 2 diabetes mellitus with hypoglycemia without coma; M19.90 Unspecified osteoarthritis, unspecified site; J44.9 Chronic obstructive pulmonary disease, unspecified; F32.9 Major depressive disorder, single episode, unspecified; E11.9 Type 2 diabetes mellitus without complications; K21.9 Gastro-esophageal reflux disease without esophagitis; E78.00 Pure hypercholesterolemia, unspecified; F17.210 Nicotine dependence, cigarettes, uncomplicated; Z88.6 Allergy status to analgesic agent; Z88.8 Allergy status to other drugs, medicaments and biological substances; Z88.5 Allergy status to narcotic agent; Z88.1 Allergy status to other antibiotic agents; Z86.73 Personal history of transient ischemic attack (TIA), and cerebral infarction without residual deficits; X78.8XXA Intentional self-harm by other sharp object, initial encounter; Y93.89 Activity, other specified; Y92.89 Other specified places as the place of occurrence of the external cause; Y99.8 Other external cause status
CPT/HCPCS: 12007; 31500; 36415; 36556; 43762; 71045; 80048; 80076; 80307; 80329; 81001; 82550; 82803; 82947; 83605; 83690; 83735; 83880; 84443; 84484; 85025; 85379; 85610; 85730; 87040; 90471; 90715; 93005; 94640; 96365; 96366; 96367; 96368; 96375; 96376; 99291; 99292; G0480; J0330; J0696; J2250; J2704; J2930; J3480; J3490; J7120; 82003

== ENCOUNTER 2019-06-28 13:57 | Emergency (ER) | payer OTHER, MEDICAID ==
[~2019-06-28] VITALS: Ht 167.6 cm; Wt 84.1 kg
[~2019-06-28 13:57] MED LIST changes: -DEXTROSE 50% 25 GM / 50ML DISP.SYRIN. IV ONE; -ERYTHROMYCIN 0.5% OPHTH OINTMENT 1GM TUBE. ONE; -ETOMIDATE 40 MG/20 ML VIAL. IV ONE; -MIDAZOLAM HCL PF 5 MG/5 ML VIAL. ONE; -PROPOFOL 10,000 MCG/ML (100ML) VIAL IV ONE; -SUCCINYLCHOLINE 200 MG/10 ML VIAL. ONE; -TIZA4TAB PO; +TIZA4TAB2 PO
[2019-06-28 14:00] VITALS: BP 145/95
--- NOTE | 2019-06-28 14:24 | PHYS DOC ---
Past History Past Medical History: Angina, Arthritis, COPD, CVA, Depression, Diabetes, GERD, High Cholesterol, Stroke, TIA Past Surgical History: Cholecystectomy, Hysterectomy, Knee Replacement Smoking: Cigarettes, Greater than 1 pack/day Alcohol Use: None Drug Use: Marijuana Adult General Chief Complaint Chief Complaint: SHOUDLER HPI HPI Patient is a 49-year-old female presents complaining of right shoulder pain after a seizure 2 days ago. She is on Dilaudid for chronic pain management. She denies not taken any other pain medicines. Increased pain with movement. Reports that the pain is severe. No numbness or tingling in the fingers. She is right hand dominant. No previous history of shoulder injury. No pain with exertion.[] Review of Systems Review of Systems Constitutional: Denies fever or chills [] Eyes: Denies change in visual acuity, redness, or eye pain [] HENT: Denies nasal congestion or sore throat [] Respiratory: Denies cough or shortness of breath [] Cardiovascular: No chest pain or palpitations[] GI: Denies abdominal pain, nausea, vomiting, bloody stools or diarrhea [] : Denies dysuria or hematuria [] Musculoskeletal: See history of present illness[] Integument: Denies rash or skin lesions [] Neurologic: Denies headache, focal weakness or sensory changes [] Endocrine: Denies polyuria or polydipsia [] All other systems were reviewed and found to be within normal limits, except as documented in this note. Allergies Allergies Allergies Coded Allergies Type Severity Reaction Last Updated Verified aspirin Allergy Severe Shortness of Air 01/05/17 Yes adhesive tape Allergy Intermediate 05/23/17 Yes chlordiazepoxide Allergy Intermediate Swelling 05/23/17 Yes clidinium Allergy Intermediate Swelling 05/23/17 Yes erythromycin base Allergy Intermediate Hives 01/05/17 Yes fentanyl Allergy Intermediate 05/23/17 Yes ibuprofen Allergy Intermediate Hives 01/05/17 Yes loratadine Allergy Intermediate Itching 02/01/19 Yes morphine Allergy Intermediate Swelling 05/23/17 Yes Physical Exam Physical Exam Constitutional: Well developed, well nourished, no acute distress, non-toxic appearance. [] HENT: Normocephalic, atraumatic, bilateral external ears normal, oropharynx moist, no oral exudates, nose normal. [] Eyes: PERRLA, EOMI, conjunctiva normal, no discharge. [] Neck: Normal range of motion, no tenderness, supple, no stridor. [] Cardiovascular:Heart rate regular rhythm, no murmur [] Lungs & Thorax: Bilateral breath sounds clear to auscultation [] Abdomen: Bowel sounds normal, soft, no tenderness, no masses, no pulsatile masses. [] Skin: Warm, dry, no erythema, no rash. [] Back: No tenderness, no CVA tenderness. [] Extremities: Right shoulder tenderness diffusely, no step off, no bony crepitus, decreased active range of motion secondary to pain. No elbow tenderness. No increased pain with axial loading of the humerus. Patient is distally neurovascularly intact. The other 3 extremities show: No tenderness, no cyanosis, no clubbing, ROM intact, no edema. [] Neurologic: Alert and oriented X 3, normal motor function, normal sensory function, no focal deficits noted. [] Psychologic: Affect normal, judgement normal, mood normal. [] EKG EKG [] Radiology/Procedures Radiology/Procedures PROCEDURE: SHOULDER 2+V RIGHT Right shoulder 2 views: Reason for examination: Injured shoulder yesterday. Pain after seizure and fall. There appears to have been previous resection of the distal clavicle. No acute fracture or dislocation is seen. The bone density is normal. No abnormal periosteal reaction is seen. Joint spaces are maintained. IMPRESSION: No acute bony abnormality at the right shoulder.[] Course & Med Decision Making Course & Med Decision Making Pertinent Labs and Imaging studies reviewed. (See chart for details) ED course: Patient arrived, was placed in bed, and tolerated exam well. She was transported to and from radiology with any complications. 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 Will have her continue her chronic pain management protocol. She was placed in a sling. She was distally neurovascularly intact after sling application. She was discharged in improved condition with all questions answered. Medical decision making: There is no evidence of a fracture or dislocation. Was initially concerning for the possibility of posterior dislocation given her seizure history. She is on antiseizure medicines including Keppra, that a level would not return today. There level can be followed by her primary care physici an/neurologist. No evidence of neurologic or vascular compromise.[] Dragon Disclaimer Dragon Disclaimer This electronic medical record was generated, in whole or in part, using a voice recognition dictation system. Departure Departure: Impression: Primary Impression: Right shoulder pain Disposition: 01 HOME, SELF-CARE Condition: IMPROVED Referrals: ELI PROCTOR MD (PCP) Follow-up in 2 days Patient Instructions: Shoulder Exercises, Generic, SportsMed, Shoulder Pain, Sling Use After Injury or Surgery Additional Instructions: Follow-up with your regular doctor in 2 days. Continue your current pain management medicines. Return to the ER if worsening pain, weakness, or any other concerns. Problem Qualifiers Primary Impression: Right shoulder pain Chronicity: acute Qualified Codes: M25.511 - Pain in right shoulder RED HAMLIN DO Jun 28, 2019 14:24
--- NOTE | 2019-06-28 14:43 | RAD ---
Right shoulder 2 views: Reason for examination: Injured shoulder yesterday. Pain after seizure and fall. There appears to have been previous resection of the distal clavicle. No acute fracture or dislocation is seen. The bone density is normal. No abnormal periosteal reaction is seen. Joint spaces are maintained. IMPRESSION: No acute bony abnormality at the right shoulder. Electronically signed by: Aurea Anguiano MD (06/28/2019 2:40 PM) [facility]
== END 2019-06-28 14:58 | disposition home or self-care (01) ==
LOC: ER 13:57
DX: M25.511 Pain in right shoulder (principal); G89.29 Other chronic pain; M19.90 Unspecified osteoarthritis, unspecified site; J44.9 Chronic obstructive pulmonary disease, unspecified; F32.9 Major depressive disorder, single episode, unspecified; E11.9 Type 2 diabetes mellitus without complications; K21.9 Gastro-esophageal reflux disease without esophagitis; E78.00 Pure hypercholesterolemia, unspecified; F17.210 Nicotine dependence, cigarettes, uncomplicated; Z86.73 Personal history of transient ischemic attack (TIA), and cerebral infarction without residual deficits; Z88.6 Allergy status to analgesic agent; Z88.8 Allergy status to other drugs, medicaments and biological substances; Z88.1 Allergy status to other antibiotic agents; Z88.5 Allergy status to narcotic agent
CPT/HCPCS: 73030; 99284

== ENCOUNTER 2019-08-26 12:18 | Emergency (ER) | payer OTHER, MEDICAID ==
[~2019-08-26] VITALS: Ht 157.5 cm; Wt 79.4 kg
[~2019-08-26 12:18] MED LIST changes: +OMEP40CA45 PO; -OMEP40CA5 PO
--- NOTE | 2019-08-26 13:11 | PHYS DOC ---
Past History Past Medical History: Angina, Anxiety, Arthritis, Bipolar, Cancer, COPD, CVA, Depression, Diabetes, DVT, GERD, High Cholesterol, Stroke, TIA Past Surgical History: Cancer Surgery, Cholecystectomy, Hysterectomy, Knee Replacement, Other Additional Past Surgical Histo: CARDIAC STENTS Smoking: Cigarettes, Greater than 1 pack/day Additional Smoking Information: PACK/DAY Alcohol Use: None Drug Use: Marijuana Adult General Chief Complaint Chief Complaint: ABDOMINAL PAIN HPI HPI 49-year-old female presents with lower abdominal pain. The patient has a bladder stimulator and she has had decreased urine output the last 3 days. She is concer connie that it might be going out again. She's had 3 of them. She is also concerned she could've a bladder action is to urinate and pain. She feels crampy all over, but the pain is mostly lower abdomen in the middle. She denies fever or chills. She only urinates once a day. Review of Systems Review of Systems Constitutional: Denies fever or chills [] Eyes: Denies change in visual acuity, redness, or eye pain [] HENT: Denies nasal congestion or sore throat [] Respiratory: Denies cough or shortness of breath [] Cardiovascular: No additional information not addressed in HPI [] GI: Lower abdominal pain, nausea. Denies vomiting, bloody stools or diarrhea [] : Denies dysuria or hematuria [] Musculoskeletal: Denies back pain or joint pain [] Integument: Denies rash or skin lesions [] Neurologic: Denies headache, focal weakness or sensory changes [] Endocrine: Denies polyuria or polydipsia [] All other systems were reviewed and found to be within normal limits, except as documented in this note. Allergies Allergies Allergies Coded Allergies Type Severity Reaction Last Updated Verified aspirin Allergy Severe Shortness of Air 01/05/17 Yes adhesive tape Allergy Intermediate 05/23/17 Yes chlordiazepoxide Allergy Intermediate Swelling 05/23/17 Yes clidinium Allergy Intermediate Swelling 05/23/17 Yes erythromycin base Allergy Intermediate Hives 01/05/17 Yes fentanyl Allergy Intermediate 05/23/17 Yes ibuprofen Allergy Intermediate Hives 01/05/17 Yes loratadine Allergy Intermediate Itching 02/01/19 Yes morphine Allergy Intermediate Swelling 05/23/17 Yes Physical Exam Physical Exam Constitutional: Well developed, well nourished, mild acute distress, non-toxic appearance. [] HENT: Normocephalic, atraumatic, bilateral external ears normal, oropharynx moist, no oral exudates, nose normal. [] Eyes: PERRLA, EOMI, conjunctiva normal, no discharge. [] Neck: Normal range of motion, no tenderness, supple, no stridor. [] Cardiovascular:Heart rate regular rhythm, no murmur [] Lungs & Thorax: Bilateral breath sounds clear to auscultation [] Abdomen: Bowel sounds normal, soft, moderate suprapubic abdominal tenderness, no masses, no pulsatile masses. [] Skin: Warm, dry, no erythema, no rash. [] Back: No tenderness, no CVA tenderness. [] Extremities: No tenderness, no cyanosis, no clubbing, ROM intact, no edema. [] Neurologic: Alert and oriented X 3, normal motor function, normal sensory function, no focal deficits noted. [] Psychologic: Affect normal, judgement normal, mood normal. [] Current Patient Data Vital Signs Vital Signs Date Time Temp Pulse Resp B/P (MAP) Pulse Ox O2 Delivery O2 Flow Rate FiO2 08/26/19 12:30 97.9 91 20 97 Room Air EKG EKG Sinus rhythm, rate 71, normal axis, no ST elevations or depressions.[] Radiology/Procedures Radiology/Procedures [] Impressions: PQRS Compliance Statement: One or more of the following individualized dose reduction techniques were utilized for this examination: 1. Automated exposure control 2. Adjustment of the mA and/or kV according to patient size 3. Use of iterative reconstruction technique CT abdomen/pelvis with contrast 08/26/2019 1:39 PM INDICATION: Lower abdominal pain COMPARISON: 01/14/2019 TECHNIQUE: Multiple axial CT images of the abdomen and pelvis were obtained after the intravenous administration of nonionic contrast. Coronal and sagittal reformats are provided. FINDINGS: 4 mm calcified granulomas noted left lung base. 3 mm calcified granulomas noted in the right lower lobe. There are no pleural effusions. Heart size within normal limits no suspicious hepatic lesion. Is a right adrenal gland are normal in appearance. Gallbladder surgically absent. There is a left adrenal nodule measuring 2.0 x 1.7 cm, stable. There is mild fatty atrophy of the pancreas. Abdominal aorta is normal in course and caliber. No pathologically enlarged lymph nodes are identified in abdomen and pelvis. There is no free fluid or free intraperitoneal air. There is under distention of the sigmoid colon, limiting evaluation. Small large bowel are normal in caliber. Appendix is not definitively visualized. No bowel obstruction or inflammation. The kidneys enhance symmetrically. There is no suspicious renal mass. There is no hydronephrosis. There are no suspected calculi within the kidneys, ureters or urinary bladder. Stable 10 mm hypodensity in the anterior interpolar right kidney suggestive of a complicated cyst (Bosniak 2). Urinary bladder is underdistended, limiting evaluation. No suspicious osseous normality is identified. Bilateral sacral nerve stimulator is identified within the presacral space. IMPRESSION: 1. No acute abnormality is identified in abdomen and pelvis. 2. No bowel obstruction or inflammation. Appendix is not visualized. 3. Stable left adrenal nodule measuring 2.0 x 1.7 cm. Electronically signed by: Nehal Walls MD (08/26/2019 2:51 PM) [id number] DICTATED AND SIGNED BY: NEHAL WALLS MD DATE: 08/26/19 145 CC: STACEY BASURTO DO; ELI PROCTOR MD ~ Course & Med Decision Making Course & Med Decision Making Pertinent Labs and Imaging studies reviewed. (See chart for details) The patient's labs are unremarkable. Her bladder scan showed only 20 Hauser of urine. Her urinalysis is negative for infection. With her level of pain, I will do a CT of the abdomen and pelvis. The patient's CT scan is negative for acute findings. I'm not certain why she is having some much discomfort. I will not order a pelvic ultrasound because the patient had a total hysterectomy with oophorectomy many years ago. I have given her 1 mg of Dilaudid IV and 4 mg of Zofran IV. This has helped the patient's pain some. He would like to go home. I do not have reason to admit her to the hospital. She is stable for discharge at this time. [] Dragon Disclaimer Dragon Disclaimer This electronic medical record was generated, in whole or in part, using a voice recognition dictation system. Departure Departure: Impression: Primary Impression: Lower abdominal pain Additional Impression: Chronic back pain Disposition: 01 HOME, SELF-CARE Condition: STABLE Referrals: ELI PROCTOR MD (PCP) Patient Instructions: Abdominal Pain, [id number], Nausea and Vomiting, [id number] Scripts Ondansetron (ONDANSETRON ODT) 4 Mg Tab.rapdis 1 TAB PO PRN Q6-8HRS PRN for VOMITING, #16 TAB Prov: STACEY BASURTO DO 08/26/19 Problem Qualifiers Additional Impression: Chronic back pain Back pain location: low back pain Back pain laterality: bilateral Sciatica presence: unspecified whether sciatica present Qualified Codes: M54.5 - Low back pain; G89.29 - Other chronic pain STACEY BASURTO DO Aug 26, 2019 13:11
[2019-08-26 13:18] LABS: BASO # 0.1 x10^3/uL (0.0-0.2); BASO % 1 % (0-3); EOS # 0.1 x10^3/uL (0.0-0.7); EOS % 1 % (0-3); HEMATOCRIT 43.5 % (36.0-47.0); HEMOGLOBIN 13.8 g/dL (12.0-15.5); LYMPH # 1.2 x10^3/uL (1.0-4.8); LYMPH % 18 % (24-48); MEAN CORPUSCULAR HEMOGLOBIN 28 pg (25-35); MEAN CORPUSCULAR HGB CONC 32 g/dL (31-37); MEAN CORPUSCULAR VOLUME 87 fL (79-100); MONO # 0.4 x10^3/uL (0.0-1.1); MONO % 6 % (0-9); NEUT # 4.9 x10^3uL (1.8-7.7); NEUT % 75 % (31-73); PLATELET COUNT 345 x10^3/uL (140-400); RED BLOOD COUNT 5.01 x10^6/uL (3.50-5.40); RED CELL DISTRIBUTION WIDTH 17.8 % (11.5-14.5); WHITE BLOOD COUNT 6.5 x10^3/uL (4.0-11.0)
[2019-08-26 13:25] LABS: BACTERIA,URINE 0 /HPF (0-FEW); BILIRUBIN,URINE NEG (NEG); CLARITY,URINE CLEAR; COLOR,URINE YELLOW; GLUCOSE,URINE NEG (NEG); NITRITE,URINE NEG (NEG); RBC,URINE 0 /HPF (0-2); SQUAMOUS EPITHELIAL CELL,UR OCC /LPF; UROBILINOGEN,URINE 0.2 mg/dL (0.2 mg/dL); WBC,URINE 0 /HPF (0-4)
[2019-08-26 13:30] LABS: ALBUMIN 3.3 g/dL (3.4-5.0); ALBUMIN/GLOBULIN RATIO 1.1 (1.0-1.7); CALCIUM 9.1 mg/dL (8.5-10.1); CREATININE 0.5 mg/dL (0.6-1.0); GFR 130.1; POTASSIUM 3.6 mmol/L (3.5-5.1); TOTAL BILIRUBIN 0.4 mg/dL (0.2-1.0); TOTAL PROTEIN 6.4 g/dL (6.4-8.2)
[2019-08-26] MEDS ORDERED: IOHEXOL 300 MG/ML 75 ML VIAL. IV ONE (14:00)
--- NOTE | 2019-08-26 14:54 | RAD ---
PQRS Compliance Statement: One or more of the following individualized dose reduction techniques were utilized for this examination: 1. Automated exposure control 2. Adjustment of the mA and/or kV according to patient size 3. Use of iterative reconstruction technique CT abdomen/pelvis with contrast 08/26/2019 1:39 PM INDICATION: Lower abdominal pain COMPARISON: 01/14/2019 TECHNIQUE: Multiple axial CT images of the abdomen and pelvis were obtained after the intravenous administration of nonionic contrast. Coronal and sagittal reformats are provided. FINDINGS: 4 mm calcified granulomas noted left lung base. 3 mm calcified granulomas noted in the right lower lobe. There are no pleural effusions. Heart size within normal limits no suspicious hepatic lesion. Is a right adrenal gland are normal in appearance. Gallbladder surgically absent. There is a left adrenal nodule measuring 2.0 x 1.7 cm, stable. There is mild fatty atrophy of the pancreas. Abdominal aorta is normal in course and caliber. No pathologically enlarged lymph nodes are identified in abdomen and pelvis. There is no free fluid or free intraperitoneal air. There is under distention of the sigmoid colon, limiting evaluation. Small large bowel are normal in caliber. Appendix is not definitively visualized. No bowel obstruction or inflammation. The kidneys enhance symmetrically. There is no suspicious renal mass. There is no hydronephrosis. There are no suspected calculi within the kidneys, ureters or urinary bladder. Stable 10 mm hypodensity in the anterior interpolar right kidney suggestive of a complicated cyst (Bosniak 2). Urinary bladder is underdistended, limiting evaluation. No suspicious osseous normality is identified. Bilateral sacral nerve stimulator is identified within the presacral space. IMPRESSION: 1. No acute abnormality is identified in abdomen and pelvis. 2. No bowel obstruction or inflammation. Appendix is not visualized. 3. Stable left adrenal nodule measuring 2.0 x 1.7 cm. Electronically signed by: Julia Barcenas MD (08/26/2019 2:51 PM) [id number]
[2019-08-26] MEDS ORDERED: HYDROmorphone PF 1 MG/ML DISP.SYRIN IV ONE (15:00)
[2019-08-26] MEDS ORDERED: ONDANSETRON PF 4 MG/2 ML VIAL. IVP ONE (15:00)
[2019-08-26 15:53] VITALS: BP 120/82
[2019-08-26] MEDS ORDERED: ONDA4TAB12 PO (15:57)
== END 2019-08-26 16:07 | disposition home or self-care (01) ==
LOC: ER 12:18
DX: R10.30 Lower abdominal pain, unspecified (principal); G89.29 Other chronic pain; M54.5 Low back pain; M19.90 Unspecified osteoarthritis, unspecified site; J44.9 Chronic obstructive pulmonary disease, unspecified; E11.9 Type 2 diabetes mellitus without complications; K21.9 Gastro-esophageal reflux disease without esophagitis; E78.00 Pure hypercholesterolemia, unspecified; F17.210 Nicotine dependence, cigarettes, uncomplicated; Z86.73 Personal history of transient ischemic attack (TIA), and cerebral infarction without residual deficits; Z90.49 Acquired absence of other specified parts of digestive tract; Z90.710 Acquired absence of both cervix and uterus; Z88.6 Allergy status to analgesic agent; Z88.8 Allergy status to other drugs, medicaments and biological substances; Z88.5 Allergy status to narcotic agent; Z88.1 Allergy status to other antibiotic agents
CPT/HCPCS: 36415; 74177; 80053; 81001; 85025; 96374; 96375; 99285; J1170; J2405; Q9967

== ENCOUNTER → 2019-11-03 | Outpatient (CLI) | payer OTHER, MEDICAID ==
[~2019-11-03] MED LIST changes: +IOHEXOL 350 MG/ML 100 ML VIAL. IV ONE; +ONDA4TAB12 PO
--- NOTE | 2019-11-04 09:17 | RAD ---
EXAM: CT ANGIOGRAPHY HEAD DATE: 11/03/2019 1:20 PM INDICATION: Intracerebral aneurysm TECHNIQUE: 5 mm axial tomographic images were obtained through the head before contrast. CTA angiogram was obtained after IV bolus administration of 90 cc of Omnipaque 350. Multiplanar reconstruction images to include MIP and 3-D reconstruction images are submitted. One or more of the following dose reduction techniques were utilized: Automated exposure control (AEC), Adjustment of mA and/or kV according to patient size, Use of iterative reconstruction technique such as ASiR, CT scan done according to ALARA and image gently/image wisely COMPARISON: 01/25/2018. FINDINGS: Noncontrast CT: The brain parenchyma is normal in attenuation. No intra- or extra-axial mass or fluid collection. No hyperdense intracranial hemorrhage. The ventricles are normal in size and configuration without midline shift. There is normal meadows-white matter differentiation. The subarachnoid cisterns are patent. The visualized paranasal sinuses are well aerated. The mastoid air cells are clear. The visualized portions of the orbits are normal. No aggressive osseous lesion or fracture. CTA Head: Left ICA laterally projecting periophthalmic aneurysm measuring 5 x 5 mm is unchanged in size from the prior exam when measured in the same fashion. The visualized distal internal carotid arteries, anterior and middle cerebral arteries are otherwise patent and normal caliber. The distal vertebral arteries, basilar artery, and posterior cerebral arteries are patent and normal caliber. 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 Electronically signed by: Mehul Pelaez MD (11/04/2019 9:14 AM) [facility]
== END | disposition home or self-care (01) ==
LOC: CT 13:05
PROVIDERS: ATTEND Psychiatry & Neurology Neurology
DX: I72.0 Aneurysm of carotid artery (principal)
CPT/HCPCS: 70496; Q9967

== ENCOUNTER → 2019-11-06 | Outpatient (CLI) | payer OTHER, MEDICAID ==
[~2019-11-06] MED LIST changes: -IOHEXOL 350 MG/ML 100 ML VIAL. IV ONE
[2019-11-06 13:48] LABS: FREE T4 0.69 ng/dL (0.76-1.46); THYROID STIM HORMONE (TSH) 3.126 uIU/mL (0.358-3.740)
[2019-11-07 20:07] LABS: ANA INTERP Negative (.)
== END | disposition home or self-care (01) ==
LOC: LAB 10:35
PROVIDERS: ATTEND Internal Medicine Gastroenterology
DX: R10.9 Unspecified abdominal pain (principal); R11.2 Nausea with vomiting, unspecified
CPT/HCPCS: 36415; 82533; 84439; 84443; 86038

== ENCOUNTER → 2019-11-11 | Outpatient (CLI) | payer OTHER, MEDICAID ==
--- NOTE | 2019-11-12 08:11 | RAD ---
EXAM: Dual energy x-ray absorptiometry (DEXA). HISTORY: 49-year-old female on long-standing anticonvulsants. History of chemotherapy. Weight loss.. COMPARISON: None available. TECHNIQUE: Dual energy x-ray absorptiometry of the lumbar spine and right hip was performed. Calculation of bone mineral density based on standard deviations above or below the expected young adult normal value (T-score) was completed. FINDINGS: The average bone mineral density in the 1st through 4th lumbar vertebrae is 0.953 g/cmxcm, corresponding with a T-score of -1.9. The average total bone mineral density in the right hip is 0.997 g/cmxcm, corresponding with a T-score of 0.3. IMPRESSION: Findings are compatible with osteopenia with relation to the spine and normal bone density with relation to the right hip. Note: Definitions established by the World Health Organization: 1. Normal: T-score is -1.0 or above. 2. Osteopenia: T-score is between -1.0 and -2.5 . 3. Osteoporosis: T-score is -2.5 or below. Electronically signed by: Julia Barcenas MD (11/12/2019 8:08 AM) [id number]
== END | disposition home or self-care (01) ==
LOC: DXRAD 12:56
PROVIDERS: ATTEND Family Medicine
DX: M85.88 Other specified disorders of bone density and structure, other site (principal); Z78.0 Asymptomatic menopausal state
CPT/HCPCS: 77080

== ENCOUNTER 2019-11-12 22:32 | Emergency (ER) | payer OTHER, MEDICAID ==
[~2019-11-12] VITALS: Ht 157.5 cm; Wt 75.1 kg
[2019-11-12 22:35] VITALS: BP 148/83
[2019-11-12] MEDS ORDERED: IV NORMAL SALINE 1,000ML 1,000 ML IV ONE (22:45)
--- NOTE | 2019-11-12 22:59 | EKG ---
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
[2019-11-12] MEDS ORDERED: IOHEXOL 300 MG/ML 75 ML VIAL. IV ONE (23:00)
[2019-11-12] MEDS ORDERED: FAMOTIDINE 20 MG/2 ML VIAL IVP ONE (23:00)
[2019-11-12] MEDS ORDERED: ONDANSETRON PF 4 MG/2 ML VIAL. IVP ONE (23:00)
--- NOTE | 2019-11-12 23:14 | PHYS DOC ---
Past History Past Medical History: Angina, Anxiety, Arthritis, Bipolar, Cancer, COPD, CVA, Depression, Diabetes, DVT, GERD, High Cholesterol, Stroke, TIA Past Surgical History: Cancer Surgery, Cholecystectomy, Hysterectomy, Knee Replacement, Other Additional Past Surgical Histo: CARDIAC STENTS Smoking: Cigarettes, Greater than 1 pack/day Alcohol Use: None Drug Use: Marijuana Adult General Chief Complaint Chief Complaint: NAUSEA/VOMITING/DIARRHEA HPI HPI Patient is a 49-year-old female who presents to the ED with nausea vomiting and diarrhea. She states that it's increased in frequency over the last 3 days to a point where she is unable to keep anything that she ingests down. She states that she has a history of colon cancer that has been confirmed on colonoscopy. She was slated to have an EGD tomorrow morning but due to the increase in vomiting felt that she needed to be seen tonight. She admits to having blood-tin ged vomit, diarrhea, left-sided abdominal pain, headache, and joint pain. She also had an episode of chest pain with shortness of breath that she treated with nitroglycerin. She denies any measured fevers but states that she has felt chills especially today. She rates her abdominal pain as a 9 out of 10 in the lower left quadrant at its worst and a 7 out of 10 at baseline. Review of Systems Review of Systems Constitutional: Denies fever, admits chills Respiratory: Admits cough and shortness of breath Cardiovascular: Admits chest pain, denies palpitations GI: Admits abdominal pain, nausea, and vomiting Musculoskeletal: Denies back pain, admits to joint pain Neurologic: Admits headache and focal weakness, denies sensory changes Complete systems were reviewed and found to be within normal limits, except as documented in this note. Family History Family History Pertinent family history noted Current Medications Current Medications Current Medications Medications (Trade) Dose Ordered Sig/Indira Start Time Stop Time Status Last Admin Dose Admin Famotidine (Pepcid Vial) 20 mg 1X ONCE 11/12/19 22:45 11/12/19 22:46 UNV Ondansetron HCl (Zofran) 4 mg 1X ONCE 11/12/19 22:45 11/12/19 22:46 UNV Sodium Chloride 1,000 ml @ 1,000 mls/hr 1X ONCE 11/12/19 22:45 11/12/19 23:44 UNV Allergies Allergies Allergies Coded Allergies Type Severity Reaction Last Updated Verified aspirin Allergy Severe Shortness of Air 01/05/17 Yes adhesive tape Allergy Intermediate 05/23/17 Yes chlordiazepoxide Allergy Intermediate Swelling 05/23/17 Yes clidinium Allergy Intermediate Swelling 05/23/17 Yes erythromycin base Allergy Intermediate Hives 01/05/17 Yes fentanyl Allergy Intermediate 05/23/17 Yes ibuprofen Allergy Intermediate Hives 01/05/17 Yes loratadine Allergy Intermediate Itching 02/01/19 Yes morphine Allergy Intermediate Swelling 05/23/17 Yes Physical Exam Physical Exam Constitutional: Well developed, dehydrated, mild to moderate distress, uncomfortable/anxious appearance HENT: Normocephalic, atraumatic, oropharynx dry Eyes: EOMI, conjunctiva normal, no discharge Cardiovascular: Heart rate normal, regular rhythm Lungs & Thorax: Bilateral breath sounds clear to auscultation, expiratory wheezes bilaterally Abdomen: Soft, left upper and lower quadrant tenderness to palpation, bowel sounds present Skin: Warm, dry, no erythema, no rash Extremities: No tenderness, 1+ pitting edema worse on right Neurologic: Alert and oriented X 3, normal motor function, normal sensory function, no focal deficits noted Psychologic: Affect normal, judgment normal EKG EKG Performed at 2246 Normal sinus rhythm with a rate of 66 bpm No evidence of acute STEMI Radiology/Procedures Radiology/Procedures PROCEDURE: CT ABD PELV W/ IV CONTRST ONLY EXAM: CT Abdomen and Pelvis with IV contrast CLINICAL HISTORY: Abdominal pain, N/V/D. COMPARISON: 08/26/2019, 01/14/2019 TECHNIQUE: Helical CT of the abdomen and pelvis was performed following the administration of intravenous contrast. Axial, coronal and sagittal reformatted images were generated. PQRS compliance statement - One or more of the following individualized dose reduction techniques were utilized for this study: 1. Automated exposure control 2. Adjustment of the mA and/or kV according to patient size 3. Use of iterative reconstruction technique FINDINGS: Lower chest: Calcified granuloma left lung base. Abdomen and Pelvis: Focal low-attenuation along falciform ligament likely focal fatty infiltration. Mild intrahepatic and extra hepatic biliary ductal prominence. There has been a cholecystectomy. Spleen is unremarkable. 2 cm left adrenal nodule is seen, indeterminate but grossly stable to 05/22/2017. A 1.1 cm right interpolar renal cystic lesion is seen.. No hydronephrosis. No hydroureter. Bladder is unremarkable. Moderate colonic stool content is seen. No small or large bowel dilatation. No evidence of bowel obstruction. Appendix is not definitively seen. No abdominal or pelvic lymphadenopathy. No abdominal or pelvic ascites. Aorta is normal in caliber. Bones: Symphysis uterus degenerative changes are seen. IMPRESSION: 1. No bowel obstruction. 2. Mild intrahepatic and extra hepatic biliary ductal prominence. This can be correlated with patient's lab values including LFTs but likely related to reservoir effect from prior cholecystectomy. 3. Moderate colonic stool content is seen. 4. Indeterminate left adrenal nodule is stable. 5. Focal low-attenuation along falciform ligament likely focal fatty infiltration Course & Med Decision Making Course & Med Decision Making Pertinent Labs and Imaging studies reviewed. (See chart for details) Patient arrives at ED for assessment and treatment of nausea, vomiting, and diarrhea over the past 3 days. She states that she is unable to keep anything she ingested down. Symptoms have been worsening over the past 3 days. Her vital side on arrival showed tachycardia with oxygen saturation above 92 on room air. Patient had normal sinus rhythm on ECG with no acute STEMI. Labs show negative troponin 1. Patient was treated for nausea and pain. . CT scan of the abdomen/pelvis without acute process. Patient stable for discharge with outpatient follow-up with PCP/GI. Discussed findings and plan with patient and family, who acknowledge understanding and agreement. Dragon Disclaimer Dragon Disclaimer This electronic medical record was generated, in whole or in part, using a voice recognition dictation system. Departure Departure: Impression: Primary Impression: Abdominal pain Additional Impression: Nausea & vomiting Disposition: 01 HOME, SELF-CARE Condition: STABLE Referrals: EIL PROCTOR MD (PCP) Patient Instructions: Abdominal Pain (Nonspecific), Nausea and Vomiting, [id number] Promethazine Hcl (PROMETHAZINE HCL) 25 Mg Tablet 1 TAB PO PRN Q6HRS PRN for NAUSEA, #14 TAB Prov: NIKO GOSS DO 11/13/19 Ondansetron (ONDANSETRON ODT) 4 Mg Tab.rapdis 1 TAB PO PRN Q6-8HRS PRN for NAUSEA, #16 TAB Prov: NIKO GOSS DO 20 Problem Qualifiers Primary Impression: Abdominal pain Abdominal location: unspecified location Qualified Codes: R10.9 - Unspecified abdominal pain Additional Impression: Nausea & vomiting Vomiting type: unspecified Vomiting Intractability: non-intractable Qualified Codes: R11.2 - Nausea with vomiting, unspecified NIKO GOSS DO Nov 12, 2019 23:14
[2019-11-12] MEDS ORDERED: CONTRAST GIVEN MC PRN (23:15)
[2019-11-12 23:17] LABS: BASO % 0 % (0-3); EOS # 0.2 x10^3/uL (0.0-0.7); EOS % 3 % (0-3); HEMATOCRIT 37.9 % (36.0-47.0); HEMOGLOBIN 12.5 g/dL (12.0-15.5); LYMPH # 2.6 x10^3/uL (1.0-4.8); LYMPH % 31 % (24-48); MEAN CORPUSCULAR HEMOGLOBIN 29 pg (25-35); MEAN CORPUSCULAR HGB CONC 33 g/dL (31-37); MEAN CORPUSCULAR VOLUME 89 fL (79-100); MONO # 0.8 x10^3/uL (0.0-1.1); MONO % 10 % (0-9); NEUT # 4.8 x10^3uL (1.8-7.7); NEUT % 57 % (31-73); PLATELET COUNT 311 x10^3/uL (140-400); RED BLOOD COUNT 4.25 x10^6/uL (3.50-5.40); RED CELL DISTRIBUTION WIDTH 16.1 % (11.5-14.5); WHITE BLOOD COUNT 8.5 x10^3/uL (4.0-11.0)
[2019-11-12 23:22] LABS: CALCIUM 9.2 mg/dL (8.5-10.1); CREATININE 0.6 mg/dL (0.6-1.0); GFR 105.4; POTASSIUM 4.1 mmol/L (3.5-5.1)
[2019-11-12 23:37] LABS: ALBUMIN 3.5 g/dL (3.4-5.0); ALBUMIN/GLOBULIN RATIO 1.3 (1.0-1.7); TOTAL BILIRUBIN 0.2 mg/dL (0.2-1.0); TOTAL PROTEIN 6.2 g/dL (6.4-8.2)
--- NOTE | 2019-11-12 23:39 | RAD ---
EXAM: CT Abdomen and Pelvis with IV contrast CLINICAL HISTORY: Abdominal pain, N/V/D. COMPARISON: 08/26/2019, 01/14/2019 TECHNIQUE: Helical CT of the abdomen and pelvis was performed following the administration of intravenous contrast. Axial, coronal and sagittal reformatted images were generated. PQRS compliance statement - One or more of the following individualized dose reduction techniques were utilized for this study: 1. Automated exposure control 2. Adjustment of the mA and/or kV according to patient size 3. Use of iterative reconstruction technique FINDINGS: Lower chest: Calcified granuloma left lung base. Abdomen and Pelvis: Focal low-attenuation along falciform ligament likely focal fatty infiltration. Mild intrahepatic and extra hepatic biliary ductal prominence. There has been a cholecystectomy. Spleen is unremarkable. 2 cm left adrenal nodule is seen, indeterminate but grossly stable to 05/22/2017. A 1.1 cm right interpolar renal cystic lesion is seen.. No hydronephrosis. No hydroureter. Bladder is unremarkable. Moderate colonic stool content is seen. No small or large bowel dilatation. No evidence of bowel obstruction. Appendix is not definitively seen. No abdominal or pelvic lymphadenopathy. No abdominal or pelvic ascites. Aorta is normal in caliber. Bones: Symphysis uterus degenerative changes are seen. IMPRESSION: 1. No bowel obstruction. 2. Mild intrahepatic and extra hepatic biliary ductal prominence. This can be correlated with patient's lab values including LFTs but likely related to reservoir effect from prior cholecystectomy. 3. Moderate colonic stool content is seen. 4. Indeterminate left adrenal nodule is stable. 5. Focal low-attenuation along falciform ligament likely focal fatty infiltration Electronically signed by: Fco Pineda MD (11/12/2019 11:36 PM) [id number]
[2019-11-12] MEDS ORDERED: HYDROmorphone PF 1 MG/ML DISP.SYRIN IV ONE (23:45)
[2019-11-13] MEDS ORDERED: HYDROmorphone PF 1 MG/ML DISP.SYRIN IV ONE
[2019-11-13] MEDS ORDERED: HYDROmorphone PF 1 MG/ML DISP.SYRIN ONE (00:09)
[2019-11-13 00:34] LABS: BARBITURATES NEG (NEG); BENZODIAZEPINES NEG (NEG); CANNABINOIDS POS (NEG); COCAINE NEG (NEG); METHADONE NEG (NEG); OPIATES POS (NEG); PHENCYCLIDINE NEG (NEG)
[2019-11-13 00:35] LABS: AMPHETAMINE/METHAMPHETAMINE POS (NEG)
[2019-11-13 00:40] LABS: BACTERIA,URINE FEW /HPF (0-FEW); BILIRUBIN,URINE NEG (NEG); CLARITY,URINE HAZY; COLOR,URINE YELLOW; GLUCOSE,URINE NEG (NEG); NITRITE,URINE NEG (NEG); RBC,URINE 0 /HPF (0-2); SQUAMOUS EPITHELIAL CELL,UR MOD /LPF; UROBILINOGEN,URINE 0.2 mg/dL (0.2 mg/dL); WBC,URINE OCC /HPF (0-4)
[2019-11-13] MEDS ORDERED: diphenhydrAMINE 50 MG/ML VIAL ONE (00:45)
[2019-11-13] MEDS ORDERED: diphenhydrAMINE 50 MG/ML VIAL IVP ONE (00:45)
[2019-11-13] MEDS ORDERED: METOCLOPRAMIDE HCL 10 MG/2 ML VIAL. ONE (00:45)
[2019-11-13] MEDS ORDERED: METOCLOPRAMIDE HCL 10 MG/2 ML VIAL. IVP ONE (00:45)
[2019-11-13] MEDS ORDERED: ONDA4TAB12 PO (00:52)
[2019-11-13] MEDS ORDERED: PROM25TA10 PO (00:52)
== END 2019-11-13 00:57 | disposition home or self-care (01) ==
LOC: ER 22:32
DX: R11.2 Nausea with vomiting, unspecified (principal); R19.7 Diarrhea, unspecified; R10.12 Left upper quadrant pain; R10.32 Left lower quadrant pain; J44.9 Chronic obstructive pulmonary disease, unspecified; K21.9 Gastro-esophageal reflux disease without esophagitis; E78.5 Hyperlipidemia, unspecified; E11.9 Type 2 diabetes mellitus without complications; F17.210 Nicotine dependence, cigarettes, uncomplicated; Z86.73 Personal history of transient ischemic attack (TIA), and cerebral infarction without residual deficits; Z90.710 Acquired absence of both cervix and uterus; Z90.49 Acquired absence of other specified parts of digestive tract; Z88.6 Allergy status to analgesic agent; Z88.1 Allergy status to other antibiotic agents; Z88.5 Allergy status to narcotic agent; Z88.8 Allergy status to other drugs, medicaments and biological substances; Z91.048 Other nonmedicinal substance allergy status
CPT/HCPCS: 36415; 74177; 80053; 80307; 81001; 82553; 83690; 84484; 85025; 85610; 85730; 93005; 96361; 96374; 96375; 99285; J1170; J1200; J2405; J2765; J3490; Q9967; J7030

== ENCOUNTER 2020-01-22 17:37 | Emergency (ER) | payer OTHER, MEDICAID ==
[~2020-01-22] VITALS: Ht 157.5 cm; Wt 72.5 kg
[2020-01-22] MEDS ORDERED: IV NORMAL SALINE 1,000ML 1,000 ML IV ONE (18:15)
[2020-01-22 18:36] LABS: BASO # 0.1 x10^3/uL (0.0-0.2); BASO % 1 % (0-3); EOS # 0.1 x10^3/uL (0.0-0.7); EOS % 1 % (0-3); HEMATOCRIT 42.1 % (36.0-47.0); HEMOGLOBIN 14.1 g/dL (12.0-15.5); LYMPH # 2.1 x10^3/uL (1.0-4.8); LYMPH % 29 % (24-48); MEAN CORPUSCULAR HEMOGLOBIN 31 pg (25-35); MEAN CORPUSCULAR HGB CONC 34 g/dL (31-37); MEAN CORPUSCULAR VOLUME 91 fL (79-100); MONO # 0.6 x10^3/uL (0.0-1.1); MONO % 9 % (0-9); NEUT # 4.4 x10^3uL (1.8-7.7); NEUT % 61 % (31-73); PLATELET COUNT 307 x10^3/uL (140-400); RED BLOOD COUNT 4.63 x10^6/uL (3.50-5.40); RED CELL DISTRIBUTION WIDTH 15.4 % (11.5-14.5); WHITE BLOOD COUNT 7.2 x10^3/uL (4.0-11.0)
--- NOTE | 2020-01-22 18:43 | PHYS DOC ---
Past History Past Medical History: Angina, Anxiety, Arthritis, Bipolar, Cancer, COPD, CVA, Depression, Diabetes, DVT, GERD, High Cholesterol, Stroke, TIA Past Surgical History: Cancer Surgery, Cholecystectomy, Hysterectomy, Knee Replacement, Other Additional Past Surgical Histo: CARDIAC STENTS Smoking: Cigarettes, Greater than 1 pack/day Alcohol Use: None Drug Use: Marijuana General Adult EDM: Chief Complaint: SHORTNESS OF BREATH HPI: HPI: 49-year-old female presents with cough, shortness breath, intermittent fevers. The patient has COPD at baseline. She has been staying in an ongoing anywhere as directed by the authorities due to coronavirus. She had a seizure 2 days ago and fell and hurt her wrist. She continues to have wrist and shoulder pain. She has no known coronavirus exposures. She has had diffuse body aching all over. She does not know how high the fever she had, just felt feverish. She does not have a fever in the ED. Denies nausea or vomiting. She has had decreased appetite. Review of Systems: Review of Systems: Constitutional: Fever Eyes: Denies change in visual acuity HENT: Denies nasal congestion or sore throat Respiratory: Cough with shortness of breath Cardiovascular: Denies chest pain or edema GI: Denies abdominal pain, nausea, vomiting, bloody stools or diarrhea : Denies dysuria Musculoskeletal: Denies back pain or joint pain Integument: Denies rash Neurologic: Denies headache, focal weakness or sensory changes Endocrine: Denies polyuria or polydipsia Lymphatic: Denies swollen glands Psychiatric: Denies depression or anxiety Heart Score: Risk Factors: Risk Factors: DM, Current or recent (<one month) smoker, HTN, HLP, family history of CAD, obesity. Risk Scores: Score 0 - 3: 2.5% MACE over next 6 weeks - Discharge Home Score 4 - 6: 20.3% MACE over next 6 weeks - Admit for Clinical Observation Score 7 - 10: 72.7% MACE over next 6 weeks - Early Invasive Strategies Current Medications: Current Meds: Current Medications Medications (Trade) Dose Ordered Sig/Indira Start Time Stop Time Status Last Admin Dose Admin Sodium Chloride 1,000 ml @ 1,000 mls/hr 1X ONCE 01/22/20 18:15 01/22/20 19:14 Allergies: Allergies: Allergies Coded Allergies Type Severity Reaction Last Updated Verified aspirin Allergy Severe Shortness of Air 01/05/17 Yes adhesive tape Allergy Intermediate 05/23/17 Yes chlordiazepoxide Allergy Intermediate Swelling 05/23/17 Yes clidinium Allergy Intermediate Swelling 05/23/17 Yes erythromycin base Allergy Intermediate Hives 01/05/17 Yes fentanyl Allergy Intermediate 05/23/17 Yes ibuprofen Allergy Intermediate Hives 01/05/17 Yes loratadine Allergy Intermediate Itching 02/01/19 Yes morphine Allergy Intermediate Swelling 05/23/17 Yes Physical Exam: PE: Constitutional: Well developed, well nourished, no acute distress, non-toxic appearance. [] HENT: Normocephalic, atraumatic, bilateral external ears normal, oropharynx moist, no oral exudates, nose normal. [] Eyes: PERRLA, EOMI, conjunctiva normal, no discharge. [] Neck: Normal range of motion, no tenderness, supple, no stridor. [] Cardiovascular:Heart rate 94, regular rhythm, no murmur [] Lungs & Thorax: Bilateral breath sounds diminished.[] Abdomen: Bowel sounds normal, soft, no tenderness, no masses, no pulsatile masses. [] Skin: Warm, dry, no erythema, no rash. [] Back: No tenderness, no CVA tenderness. [] Extremities: No tenderness, no cyanosis, no clubbing, ROM intact, no edema. [] Neurologic: Alert and oriented X 3, normal motor function, normal sensory function, no focal deficits noted. [] Psychologic: Affect normal, judgement normal, mood normal. [] Current Patient Data: Labs: Laboratory Tests Test 01/22/20 18:09 Group A Streptococcus Rapid Negative (NEGATIVE) EKG: EKG: [] Radiology/Procedures: Radiology/Procedures: [] Impressions: CHEST AP ONLY 01/22/2020 6:15 PM INDICATION: Fall COMPARISON: None available TECHNIQUE: Portable frontal view of the chest is provided. FINDINGS: The cardiomediastinal silhouette is within normal limits. Lungs are clear. There are no significant pleural effusions. There is no pulmonary vascular congestion. No pneumothorax. Resorption or postsurgical changes of the distal clavicle is noted bilaterally. Anterior cervical discectomy and fusion hardware is partially profiled. IMPRESSION: There is no acute cardiopulmonary process. Electronically signed by: Nehal Barcenas MD (01/22/2020 6:54 PM) [facility] DICTATED AND SIGNED BY: NEHAL BARCENAS MD DATE: 01/22/201853 CC: STACEY BASURTO DO; ELI PROCTOR MD ~ SHOULDER 2+V RIGHT, WRIST 3V RIGHT 01/22/2020 6:15 PM INDICATION: Fall COMPARISON: None available. TECHNIQUE: 3 views of the right wrist and 3 views the right shoulder are provided. FINDINGS/ IMPRESSION: 1. Right wrist: There is no acute fracture or dislocation. Joint spaces are maintained. Bone mineralization is within normal limits. Regional soft tissues are within normal limits. There is no soft tissue gas or osseous erosion. No radiopaque foreign body. 2. Right shoulder: There is deformity of the distal margin of the right clavicle which may be secondary to remote surgery or osteolysis from repetitive microtrauma. There is moderate glenohumeral osteoarthrosis secondary to joint space narrowing marginal osteophytosis. No acute fracture or dislocation. 3. Anterior cervical discectomy and fusion hardware is partially profiled. Electronically signed by: Nehal Barcenas MD (01/22/2020 6:53 PM) [facility] DICTATED AND SIGNED BY: NEHAL BARCENAS MD DATE: 01/22/201852 CC: STACEY BASURTO DO; ELI PROCTOR MD ~ Course & Med Decision Making: Course & Med Decision Making Pertinent Labs and Imaging studies reviewed. (See chart for details) The patient's workup is pending. Given that her heart rate is near 100 at rest, and her oxygen is dipped to 92%, we'll go ahead and test her for COVID 19. The patient's chest x-ray is negative for acute findings. Her labs are unremarkable. Her x-rays do not show fractures. I will give the patient 1 mg of Dilaudid IV for her pain. She is on Dilaudid by mouth at home. I do not believe she needs to be admitted at this time. She may very well be chronic virus positive, but she does not meet inpatient criteria at this time. I told her to carefully monitor her oxygen levels at home. She already has supplemental oxygen available. If her conditions worsens, she is always welcome to come back to the hospital. He is stable for discharge at this time. [] Dragon Disclaimer: Dragon Disclaimer: This electronic medical record was generated, in whole or in part, using a voice recognition dictation system. Departure Departure: Impression: Primary Impression: Fall due to seizure Additional Impressions: Wrist pain, right Shoulder pain, right Viral syndrome Disposition: HOME/RESIDENCE PRIOR TO ADM Condition: STABLE Referrals: ELI PROCTOR MD (PCP) STACEY BASURTO DO Jan 22, 2020 18:43
[2020-01-22 18:44] LABS: CALCIUM 9.5 mg/dL (8.5-10.1); CREATININE 0.5 mg/dL (0.6-1.0); GFR 130.1; POTASSIUM 3.8 mmol/L (3.5-5.1)
[2020-01-22 18:51] LABS: ALBUMIN 3.5 g/dL (3.4-5.0); ALBUMIN/GLOBULIN RATIO 1.2 (1.0-1.7); TOTAL BILIRUBIN 0.2 mg/dL (0.2-1.0); TOTAL PROTEIN 6.4 g/dL (6.4-8.2)
--- NOTE | 2020-01-22 18:56 | RAD ---
SHOULDER 2+V RIGHT, WRIST 3V RIGHT 01/22/2020 6:15 PM INDICATION: Fall COMPARISON: None available. TECHNIQUE: 3 views of the right wrist and 3 views the right shoulder are provided. FINDINGS/ IMPRESSION: 1. Right wrist: There is no acute fracture or dislocation. Joint spaces are maintained. Bone mineralization is within normal limits. Regional soft tissues are within normal limits. There is no soft tissue gas or osseous erosion. No radiopaque foreign body. 2. Right shoulder: There is deformity of the distal margin of the right clavicle which may be secondary to remote surgery or osteolysis from repetitive microtrauma. There is moderate glenohumeral osteoarthrosis secondary to joint space narrowing marginal osteophytosis. No acute fracture or dislocation. 3. Anterior cervical discectomy and fusion hardware is partially profiled. Electronically signed by: Julia Barcenas MD (01/22/2020 6:53 PM) [facility]
--- NOTE | 2020-01-22 18:57 | RAD ---
CHEST AP ONLY 01/22/2020 6:15 PM INDICATION: Fall COMPARISON: None available TECHNIQUE: Portable frontal view of the chest is provided. FINDINGS: The cardiomediastinal silhouette is within normal limits. Lungs are clear. There are no significant pleural effusions. There is no pulmonary vascular congestion. No pneumothorax. Resorption or postsurgical changes of the distal clavicle is noted bilaterally. Anterior cervical discectomy and fusion hardware is partially profiled. IMPRESSION: There is no acute cardiopulmonary process. Electronically signed by: Julia Barcenas MD (01/22/2020 6:54 PM) [facility]
[2020-01-22 19:25] VITALS: BP 114/77
[2020-01-22] MEDS ORDERED: HYDROmorphone PF 1 MG/ML DISP.SYRIN IV ONE (19:30)
== END 2020-01-22 19:52 | disposition home or self-care (01) ==
LOC: ER 17:37
DX: B34.9 Viral infection, unspecified (principal); M25.531 Pain in right wrist; M25.511 Pain in right shoulder; Z20.828 Contact with and (suspected) exposure to other viral communicable diseases; R56.9 Unspecified convulsions; G89.11 Acute pain due to trauma; M19.90 Unspecified osteoarthritis, unspecified site; J44.9 Chronic obstructive pulmonary disease, unspecified; E11.40 Type 2 diabetes mellitus with diabetic neuropathy, unspecified; K21.9 Gastro-esophageal reflux disease without esophagitis; E78.00 Pure hypercholesterolemia, unspecified; F17.210 Nicotine dependence, cigarettes, uncomplicated; Z86.73 Personal history of transient ischemic attack (TIA), and cerebral infarction without residual deficits; Z86.718 Personal history of other venous thrombosis and embolism; Z88.6 Allergy status to analgesic agent; Z88.1 Allergy status to other antibiotic agents; Z88.5 Allergy status to narcotic agent; Z88.8 Allergy status to other drugs, medicaments and biological substances; W18.39XA Other fall on same level, initial encounter; Y93.89 Activity, other specified; Y92.89 Other specified places as the place of occurrence of the external cause; Y99.8 Other external cause status
CPT/HCPCS: 29125; 36415; 71045; 73030; 73110; 80053; 85025; 87070; 87635; 87880; 96374; 99284; J1170; J7030

== ENCOUNTER 2020-02-05 09:53 | Observation (INO) | payer OTHER, MEDICAID ==
[~2020-02-05] VITALS: Ht 157.5 cm; Wt 82.2 kg
[2020-02-05] MEDS ORDERED: IV NORMAL SALINE 1,000ML 1,000 ML IV SCH (10:02)
--- NOTE | 2020-02-05 10:07 | PHYS DOC ---
Past History Past Medical History: Angina, Anxiety, Arthritis, Bipolar, Cancer, COPD, CVA, Depression, Diabetes, DVT, GERD, High Cholesterol, Stroke, TIA Past Surgical History: Cancer Surgery, Cholecystectomy, Hysterectomy, Knee Replacement, Other Additional Past Surgical Histo: CARDIAC STENTS Smoking: Cigarettes, Greater than 1 pack/day Alcohol Use: None Drug Use: Marijuana General Adult EDM: Chief Complaint: ALTERED MENTAL STATUS HPI: HPI: Patient is a 49-year-old female, with numerous medical problems, who presents to the emergency department for evaluation of lethargy. EMS reports that the patient's called 911, because the patient began experiencing lethargy at around midnight last night. EMS found the patient with an oxygen level of 89% on room air, although they report that she wears oxygen at baseline. She was not wearing it when she was found. EMS also reports that the patient was hypotensive upon their arrival. She has not had any nausea, or vomiting. She does arouse to painful stimulus, and is able to follow some basic commands. There have been no reports of vomiting, or fever. The patient's medication list does include Eliquis, Keppra, Seroquel, and Dilaudid. Review of Systems: Review of Systems: Unable to obtain review of systems, secondary to altered mental status Heart Score: Risk Factors: Risk Factors: DM, Current or recent (<one month) smoker, HTN, HLP, family history of CAD, obesity. Risk Scores: Score 0 - 3: 2.5% MACE over next 6 weeks - Discharge Home Score 4 - 6: 20.3% MACE over next 6 weeks - Admit for Clinical Observation Score 7 - 10: 72.7% MACE over next 6 weeks - Early Invasive Strategies Current Medications: Current Meds: Current Medications Medications (Trade) Dose Ordered Sig/Indira Start Time Stop Time Status Last Admin Dose Admin Naloxone HCl (Narcan) 0.4 mg 1X ONCE 02/05/20 10:15 02/05/20 10:16 UNV Sodium Chloride 1,000 ml @ 1,000 mls/hr Q1H 02/05/20 10:02 02/05/20 11:01 UNV Allergies: Allergies: Allergies Coded Allergies Type Severity Reaction Last Updated Verified aspirin Allergy Severe Shortness of Air 01/05/17 Yes adhesive tape Allergy Intermediate 05/23/17 Yes chlordiazepoxide Allergy Intermediate Swelling 05/23/17 Yes clidinium Allergy Intermediate Swelling 05/23/17 Yes erythromycin base Allergy Intermediate Hives 01/05/17 Yes fentanyl Allergy Intermediate 05/23/17 Yes ibuprofen Allergy Intermediate Hives 01/05/17 Yes loratadine Allergy Intermediate Itching 02/01/19 Yes morphine Allergy Intermediate Swelling 05/23/17 Yes Physical Exam: PE: PHYSICAL EXAM: CONSTITUTIONAL: Well developed, well nourished HEAD: normocephalic, atraumatic EENT: PERRL, EOMI. pupils are 2 to 3 mm bilaterally. Conjunctivae normal color, sclerae non-icteric; moist mucous membranes. NECK: Supple, non-tender; no meningismus. LUNGS: Lungs CTA, breathing even and unlabored. Normal air movement. HEART: Regular rate and rhythm, no murmur CHEST: No deformity; non-tender ABDOMEN: The abdomen is soft, and non-tender, no masses or bruits. EXTREM: Normal ROM; no deformity, no calf tenderness. Normal pulses palpable in all extremities. There is no pedal edema. SKIN: No rash; no diaphoresis NEURO: Patient is lethargic. No focal deficit. Moves all extremities. Current Patient Data: Labs: Laboratory Tests Test 02/05/20 10:05 02/05/20 10:25 White Blood Count 5.8 x10^3/uL Red Blood Count 4.25 x10^6/uL Hemoglobin 12.9 g/dL Hematocrit 39.5 % Mean Corpuscular Volume 93 fL Mean Corpuscular Hemoglobin 30 pg Mean Corpuscular Hemoglobin Concent 33 g/dL Red Cell Distribution Width 15.1 % Platelet Count 300 x10^3/uL Neutrophils (%) (Auto) 47 % Lymphocytes (%) (Auto) 40 % Monocytes (%) (Auto) 9 % Eosinophils (%) (Auto) 3 % Basophils (%) (Auto) 1 % Neutrophils # (Auto) 2.7 x10^3uL Lymphocytes # (Auto) 2.3 x10^3/uL Monocytes # (Auto) 0.5 x10^3/uL Eosinophils # (Auto) 0.2 x10^3/uL Basophils # (Auto) 0.0 x10^3/uL Prothrombin Time 10.5 SEC Prothromb Time International Ratio 1.0 Activated Partial Thromboplast Time 28 SEC Sodium Level 140 mmol/L Potassium Level 4.2 mmol/L Chloride Level 107 mmol/L Carbon Dioxide Level 27 mmol/L Anion Gap 6 Blood Urea Nitrogen 11 mg/dL Creatinine 0.8 mg/dL Estimated GFR (Cockcroft-Gault) 75.6 BUN/Creatinine Ratio 14 Glucose Level 94 mg/dL Calcium Level 8.8 mg/dL Magnesium Level 2.1 mg/dL Total Bilirubin 0.3 mg/dL Aspartate Amino Transf (AST/SGOT) 11 U/L Alanine Aminotransferase (ALT/SGPT) 15 U/L Alkaline Phosphatase 118 U/L Troponin I Quantitative < 0.017 ng/mL SH-Byb-I-Type Natriuretic Peptide 87 pg/mL Total Protein 6.6 g/dL Albumin 3.3 g/dL Albumin/Globulin Ratio 1.0 Lipase 48 U/L Ethyl Alcohol Level < 10 mg/dL Urine Collection Type U cath Urine Color Yellow Urine Clarity Hazy Urine pH 7.0 Urine Specific [place] 1.020 Urine Protein Neg Urine Glucose (UA) Neg mg/dL Urine Ketones (Stick) Neg mg/dL Urine Blood Neg Urine Nitrite Neg Urine Bilirubin Neg Urine Urobilinogen Dipstick 0.2 mg/dL Urine Leukocyte Esterase Neg Urine RBC 1-2 /HPF Urine WBC 1-4 /HPF Urine Squamous Epithelial Cells Few /LPF Urine Bacteria Few /HPF Urine Hyaline Casts Few /HPF Urine Mucus Mod /LPF Urine Opiates Screen Pos Urine Methadone Screen Neg Urine Barbiturates Neg Urine Phencyclidine Screen Neg Urine Amphetamine/Methamphetamine Neg Urine Benzodiazepines Screen Neg Urine Cocaine Screen Neg Urine Cannabinoids Screen Pos Urine Ethyl Alcohol Neg Current Medications Medications (Trade) Dose Ordered Sig/Indira Route PRN Reason Start Time Stop Time Status Last Admin Dose Admin Sodium Chloride 1,000 ml @ 1,000 mls/hr 1X ONCE IV 02/05/20 10:15 02/05/20 11:14 DC 02/05/20 10:31 Sodium Chloride 1,000 ml @ 1,000 mls/hr Q1H IV 02/05/20 10:02 02/05/20 11:01 DC 02/05/20 10:30 Naloxone HCl (Narcan) 0.4 mg 1X ONCE IV 02/05/20 10:15 02/05/20 10:16 DC 02/05/20 10:15 Naloxone HCl (Narcan) 0.4 mg 1X ONCE IV 02/05/20 11:15 02/05/20 11:16 DC 02/05/20 11:12 EKG: EKG: Normal sinus rhythm with a normal rate, normal axis, normal intervals, there are no acute ischemic ST/T changes. Low voltage is present. [] Radiology/Procedures: Radiology/Procedures: PROCEDURE: PORTABLE CHEST 1V PORTABLE CHEST 1V Clinical History: Acute mental status change Technique: AP view of the chest was obtained at 02/05/2020 10:02 AM. Comparison: January 22, 2020. Findings: The cardiomediastinal silhouette is normal. The pulmonary vasculature is normal. The lungs and pleural margins are clear. Impression: No evidence of an acute cardiopulmonary process.[] PROCEDURE: CT HEAD WO CONTRAST Examination: CT HEAD WO CONTRAST History: Altered mental status Comparison/Correlation: 02/06/2018 CT head without contrast Findings: Axial images of the head were obtained without contrast. Axial images of the head were obtained without contrast. Mild atrophy is present. No intracranial hemorrhage, midline shift, or mass effect. Bony structures are unremarkable. Impression: No acute process. Course & Med Decision Making: Course & Med Decision Making Pertinent Labs and Imaging studies reviewed. (See chart for details) [] 11:45 AM: Patient had some improvement in mental status after initial dose of Narcan, ABG, drawn before administration of Narcan did show a respiratory acidosis, pH of 7.21, PCO2 of 56, PO2 of 96, bicarb is 22.8. BiPAP was placed. Second dose of Narcan did not have any significant effect. An ABG will be repeated. The patient's condition remains stable. I spoke with the hospitalist, who accepted the patient to the hospital for further evaluation and treatment. CRITICAL CARE TIME: 45 Minutes, excluding any procedures and care of other patients. Dragon Disclaimer: Dragon Disclaimer: This electronic medical record was generated, in whole or in part, using a voice recognition dictation system. Departure Departure: Impression: Primary Impression: Altered mental status Additional Impression: Opiate dependence Disposition: ADMITTED INPATIENT Admitting Physician: Shiva Clark Condition: GUARDED Referrals: ELI PROCTOR MD (PCP) LEE NESS MD Feb 05, 2020 10:07
[2020-02-05] MEDS ORDERED: IV NORMAL SALINE 1,000ML 1,000 ML IV ONE (10:15)
[2020-02-05] MEDS ORDERED: NALOXONE 0.4 MG/ML VIAL. IV ONE ×3 (10:15→16:00)
[2020-02-05 10:30] LABS: BASO % 1 % (0-3); EOS # 0.2 x10^3/uL (0.0-0.7); EOS % 3 % (0-3); HEMATOCRIT 39.5 % (36.0-47.0); HEMOGLOBIN 12.9 g/dL (12.0-15.5); LYMPH # 2.3 x10^3/uL (1.0-4.8); LYMPH % 40 % (24-48); MEAN CORPUSCULAR HEMOGLOBIN 30 pg (25-35); MEAN CORPUSCULAR HGB CONC 33 g/dL (31-37); MEAN CORPUSCULAR VOLUME 93 fL (79-100); MONO # 0.5 x10^3/uL (0.0-1.1); MONO % 9 % (0-9); NEUT # 2.7 x10^3uL (1.8-7.7); NEUT % 47 % (31-73); PLATELET COUNT 300 x10^3/uL (140-400); RED BLOOD COUNT 4.25 x10^6/uL (3.50-5.40); RED CELL DISTRIBUTION WIDTH 15.1 % (11.5-14.5); WHITE BLOOD COUNT 5.8 x10^3/uL (4.0-11.0)
[2020-02-05 10:39] LABS: CALCIUM 8.8 mg/dL (8.5-10.1); CREATININE 0.8 mg/dL (0.6-1.0); GFR 75.6; POTASSIUM 4.2 mmol/L (3.5-5.1)
[2020-02-05 10:54] LABS: ALBUMIN 3.3 g/dL (3.4-5.0); MAGNESIUM 2.1 mg/dL (1.8-2.4); TOTAL BILIRUBIN 0.3 mg/dL (0.2-1.0); TOTAL PROTEIN 6.6 g/dL (6.4-8.2)
--- NOTE | 2020-02-05 10:58 | RAD ---
Examination: CT HEAD WO CONTRAST History: Altered mental status Comparison/Correlation: 02/06/2018 CT head without contrast Findings: Axial images of the head were obtained without contrast. Axial images of the head were obtained without contrast. Mild atrophy is present. No intracranial hemorrhage, midline shift, or mass effect. Bony structures are unremarkable. Impression: No acute process. PQRS Compliance Statement: One or more of the following individualized dose reduction techniques were utilized for this examination: 1. Automated exposure control 2. Adjustment of the mA and/or kV according to patient size 3. Use of iterative reconstruction technique Electronically signed by: Dillon Ruelas MD (02/05/2020 10:55 AM) [id number]
--- NOTE | 2020-02-05 11:01 | RAD ---
PORTABLE CHEST 1V Clinical History: Acute mental status change Technique: AP view of the chest was obtained at 02/05/2020 10:02 AM. Comparison: January 22, 2020. Findings: The cardiomediastinal silhouette is normal. The pulmonary vasculature is normal. The lungs and pleural margins are clear. Impression: No evidence of an acute cardiopulmonary process. Electronically signed by: Jamin Gomez III, MD (02/05/2020 10:58 AM) [id number]
[2020-02-05 11:15] LABS: BACTERIA,URINE FEW /HPF (0-FEW); BILIRUBIN,URINE NEG (NEG); CLARITY,URINE HAZY; COLOR,URINE YELLOW; GLUCOSE,URINE NEG (NEG); HYALINE CASTS, URINE FEW /HPF; NITRITE,URINE NEG (NEG); SQUAMOUS EPITHELIAL CELL,UR FEW /LPF; UROBILINOGEN,URINE 0.2 mg/dL (0.2 mg/dL)
[2020-02-05 11:20] LABS: BARBITURATES NEG (NEG); BENZODIAZEPINES NEG (NEG); CANNABINOIDS POS (NEG); COCAINE NEG (NEG); METHADONE NEG (NEG); OPIATES POS (NEG); PHENCYCLIDINE NEG (NEG)
[2020-02-05 11:30] LABS: AMPHETAMINE/METHAMPHETAMINE NEG (NEG)
--- NOTE | 2020-02-05 11:37 | EKG ---
[address] [address] Test Date: 2020-02-05 Test Time: 10:12:02 Pat Name: RAFAEL VANCE Department: Room: Gender: F Steno Typist: : [id number] Requested By: LEE NESS Order Number: [id number] Reading MD: Lito Spears Measurements Intervals [place] Rate: 64 P: 39 WY: 192 QRS: 34 QRSD: 92 T: 17 QT: 406 QTc: 423 Interpretive Statements SINUS RHYTHM NORMAL ECG RI6.02 Compared to ECG 11/12/2019 22:46:56 No significant changes Electronically Signed On 02-06-2020 14:04:00 CDT by Lito Spears
[2020-02-05 13:28] LABS: BGAS PH 7.21 (7.35-7.45)
[2020-02-05 13:30] LABS: BGAS PH 7.23 (7.35-7.45)
[2020-02-05 14:30] VITALS: BP 98/66
--- NOTE | 2020-02-05 14:38 | NUR ---
Pt admitted to 113 from ED. Pt on bipap, current saturation of 97%. Pt is lethargic, but VSS. Telemetry initiated. Bed alarm set, call lloyd within reach.
[2020-02-05] MEDS ORDERED: SUMA50TA3 PO (15:54)
[2020-02-05] MEDS ORDERED: TOPI25TA7 PO (15:54)
[2020-02-05] MEDS ORDERED: BUSP15TA PO (15:54)
[2020-02-05] MEDS ORDERED: ATOR40TA59 PO (15:54)
[2020-02-05] MEDS ORDERED: HYDR4TAB PO (15:54)
[2020-02-05] MEDS ORDERED: traMADol 50 MG TABLET PO PRN (16:30)
--- NOTE | 2020-02-05 16:30 | HP ---
ADMIT DATE: 02/05/2020 ATTENDING PHYSICIAN: Dr. Gacrias. CHIEF COMPLAINT: Altered mentation. HISTORY OF PRESENT ILLNESS: The patient is a 49-year-old female with multiple medical issues. I counted her prescription meds, she is on 36 daily. She is also on Dilaudid. She presented to the ED with lethargy, altered mentation. The patient's called 911. She could not be aroused. Oxygen saturations are marginal 89%. She was started on BiPAP. By the time I saw her, she got up to the floor. She was arousable. She did get 2 doses of Narcan. I will order more. I will also hold her sedating medications. PAST MEDICAL HISTORY: Significant for COPD. She continues to smoke over a pack of cigarettes daily. She has had cardiac stents, coronary artery disease, angina, bipolar disorder, nonspecific cancer, COPD, old stroke, depression, diabetes, DVT, gastroesophageal reflux disease, high cholesterol and completed stroke. PAST SURGICAL HISTORY: Cancer surgery, unclear what organ was removed; cholecystectomy; hysterectomy; knee replacement. ALLERGIES: SHE HAS MULTIPLE ALLERGIES INCLUDING ADHESIVE TAPE, ASPIRIN, LIBRIUM, ERYTHROMYCIN, FENTANYL, IBUPROFEN, LORATADINE and MORPHINE, exact etiology is unclear. CURRENT SCHEDULED MEDS: Include following, alphabetically they include albuterol, baclofen, Tessalon Perles, diclofenac, Trulicity, Cymbalta, fluticasone, Lasix, Neurontin, hydroxyzine, Levemir insulin, Lamictal, Keppra, Linzess, metformin, Remeron, omeprazole, Zofran, oxcarbazepine, potassium, promethazine, Seroquel, ranitidine, Xarelto, Aldactone, Zanaflex, Incruse Ellipta and Zonegran. FAMILY HISTORY: Unobtainable. REVIEW OF SYSTEMS: Unobtainable. PHYSICAL EXAMINATION: GENERAL: When I saw her, this is a lethargic female who is arousable. VITAL SIGNS: She has been placed on BiPAP with adequate saturation. Her blood pressure is 98/66, her pulse is 67 and regular, temperature 98.0 Fahrenheit. Oxygen saturations were 97% on BiPAP with 3 liters of supplemental oxygen. HEENT: Head is without trauma. Pupils are pinpoint. NECK: Supple, no bruits. Oropharynx clear. No stridor. LUNGS: Shallow respirations, otherwise good breath sounds. CARDIOVASCULAR: Showed distant heart tones. No gallops. Peripheral pulses are palpable and weak. ABDOMEN: Obese, protuberant. No organomegaly. Bowel sounds are hypoactive. EXTREMITIES: Showed no cyanosis or edema. NEUROLOGIC: Lethargic, but arousable. She is not aware of place or time. PERTINENT LABORATORY AND X-RAY STUDIES: The obligatory CT of the head showed no acute intracranial process, no bleeds or stroke identified. The chest x-ray showed clear lung mercado without any decompensation or infiltrate. Hemoglobin was 12.9 g/dL with a white count of 5800. Chemistry panel was within normal range. Creatinine 0.8. Cardiac enzymes negative for myocardial necrosis. ASSESSMENT: 1. A 49-year-old female with altered mentation. 2. Polypharmacy. 3. Diabetes. 4. Chronic obstructive pulmonary disease. 5. Chronic pain syndrome. 6. Degenerative arthritis. 7. Underlying depression and bipolar disorder. PLAN: 1. Observation status overnight. 2. Narcan administered. 3. I have held most of her home meds. 4. Diabetic diet as tolerated. 5. We will wean her off the BiPAP and go to nasal cannula supplemental oxygen. ANH GARCIAS MD DR: MELISSA/douglas JOB#: [id number] / [id number]
--- NOTE | 2020-02-05 17:32 | NUR ---
Pt taken off bipap per MD. 1.2 mg of narcan given. Pt much more aware and alert, eating dinner. O2 saturations 95% on RA, but does wear 2 L NC HS. reconciled meds. Will continue to monitor.
[2020-02-05 19:23] VITALS: BP 99/63
[2020-02-05] MEDS: levETIRAcetam 500 MG TABLET PO SCH (20:59)
[2020-02-05 23:05] VITALS: BP 105/69
[2020-02-06 03:00] VITALS: BP 113/73
[2020-02-06 05:22] VITALS: BP 115/74
[2020-02-06] MEDS: levETIRAcetam 500 MG TABLET PO SCH (08:03)
[2020-02-06] MEDS ORDERED: RIVAROXABAN 10 MG TABLET. PO SCH (09:00)
--- NOTE | 2020-02-06 10:00 | NUR ---
PATIENT IS DISCHARGED TO HOME , DISCHARGED INFORMATION AND MEDICATIONS REVIEWED, PATIENT VERBALIZED UNDERSTANDING. PT LEFT ROOM VIA W/C ACCOMPANIED BY STAFF MEMBER. PATIENT TAKEN HOME BY HER VIA PERSONAL VEHICLE .
== END 2020-02-06 10:00 | disposition home or self-care (01) ==
LOC: ER 09:53 → 1 SOUTH 12:22 → INTOOBSV 12:22
PROVIDERS: ADMIT Hospitalist; ATTEND Hospitalist
DX: R41.82 Altered mental status, unspecified (principal); J44.9 Chronic obstructive pulmonary disease, unspecified; G89.4 Chronic pain syndrome; M19.90 Unspecified osteoarthritis, unspecified site; F31.9 Bipolar disorder, unspecified; E11.9 Type 2 diabetes mellitus without complications; I25.119 Atherosclerotic heart disease of native coronary artery with unspecified angina pectoris; K21.9 Gastro-esophageal reflux disease without esophagitis; F11.20 Opioid dependence, uncomplicated; E78.00 Pure hypercholesterolemia, unspecified; F17.210 Nicotine dependence, cigarettes, uncomplicated; Z86.73 Personal history of transient ischemic attack (TIA), and cerebral infarction without residual deficits; Z95.5 Presence of coronary angioplasty implant and graft; Z90.710 Acquired absence of both cervix and uterus; Z79.899 Other long term (current) drug therapy
CPT/HCPCS: 36415; 36600; 70450; 71045; 80053; 80307; 81001; 82803; 82947; 83690; 83735; 83880; 84484; 85025; 85610; 85730; 93005; 94660; 96361; 96374; 96376; 99291; G0378; G0480; J2310; G0379; J7030

== ENCOUNTER → 2020-09-10 | Outpatient (CLI) | payer OTHER, MEDICAID ==
[~2020-09-10] MED LIST changes: +BUSP15TA PO; +HYDR4TAB PO; +IOHEXOL 240 MG/ML 50ML VIAL. ONE; +MIRT-37 PO; -MIRT15TA PO; +TOPI25TA7 PO
[2020-09-10 10:30] LABS: BASO % 1 % (0-3); EOS # 0.1 x10^3/uL (0.0-0.7); EOS % 1 % (0-3); HEMATOCRIT 45.1 % (36.0-47.0); HEMOGLOBIN 14.6 g/dL (12.0-15.5); LYMPH # 2.1 x10^3/uL (1.0-4.8); LYMPH % 34 % (24-48); MEAN CORPUSCULAR HEMOGLOBIN 30 pg (25-35); MEAN CORPUSCULAR HGB CONC 32 g/dL (31-37); MEAN CORPUSCULAR VOLUME 94 fL (79-100); MONO # 0.5 x10^3/uL (0.0-1.1); MONO % 8 % (0-9); NEUT # 3.4 x10^3uL (1.8-7.7); NEUT % 56 % (31-73); PLATELET COUNT 278 x10^3/uL (140-400); RED BLOOD COUNT 4.81 x10^6/uL (3.50-5.40); RED CELL DISTRIBUTION WIDTH 14.7 % (11.5-14.5); WHITE BLOOD COUNT 6.1 x10^3/uL (4.0-11.0)
[2020-09-10 10:37] LABS: ALBUMIN 3.6 g/dL (3.4-5.0); ALBUMIN/GLOBULIN RATIO 1.1 (1.0-1.7); CALCIUM 8.9 mg/dL (8.5-10.1); CREATININE 0.6 mg/dL (0.6-1.0); POTASSIUM 4.1 mmol/L (3.5-5.1); TOTAL BILIRUBIN 0.2 mg/dL (0.2-1.0); TOTAL PROTEIN 6.9 g/dL (6.4-8.2)
[2020-09-10] MEDS: IOHEXOL 240 MG/ML 50ML VIAL. PO ONE (10:44)
[2020-09-10] MEDS: IOHEXOL 300 MG/ML 75 ML VIAL. IV ONE (10:44)
--- NOTE | 2020-09-10 16:50 | RAD ---
EXAM: Abdomen and pelvis CT with intravenous contrast. HISTORY: Nausea and vomiting. Weight loss. Gastroparesis. TECHNIQUE: Computed tomographic images of the abdomen and pelvis were obtained following the administration of intravenous contrast. Multiplanar reformatting was performed. *One or more of the following individualized dose reduction techniques were utilized for this examination: 1. Automated exposure control. 2. Adjustment of the mA and/or kV according to patient size. 3. Use of iterative reconstruction technique. COMPARISON: 11/12/2019. FINDINGS: Evaluation of the lower thorax demonstrates calcified granulomas. There is no infiltrate or pleural effusion. There is lingular and right middle lobe pleural parenchymal scarring. The heart is normal in size. There is intrahepatic and extra hepatic biliary ductal dilatation. This may be due to reservoir effect status post cholecystectomy. The pancreas, spleen and adrenal glands are unremarkable. There is a 1.5 cm simple appearing cyst within the lower mid zone of the right kidney. There is no hydronephrosis. There is moderate colonic stool. There is no evidence of bowel obstruction. There is no abnormal bowel wall thickening. The urinary bladder is unremarkable. The uterus is absent. The aorta is normal in caliber. There is no lymphadenopathy. There is no suspicious osseous lesion. There is a generator within the right buttock with sacral stimulator lead overlying the right presacral space. There is also a portion of a stimulator lead overlying the left presacral space. IMPRESSION: 1. No acute abdominal or pelvic finding. 2. Stable biliary ductal dilatation. This can be due to reservoir effect status post cholecystectomy. 3. Stable simple appearing right renal cyst. Follow-up is not routinely recommended for simple cysts. Electronically signed by: Mariam Marsh MD (09/10/2020 3:55 PM) [facility]
[2020-09-10 19:24] LABS: FREE T4 0.77 ng/dL (0.76-1.46); THYROID STIM HORMONE (TSH) 0.641 uIU/mL (0.358-3.740)
[2020-09-11 00:11] LABS: HEMOGLOBIN A1C 5.9 % (4.8-5.6)
== END ==
LOC: CT 09:09
PROVIDERS: ATTEND Internal Medicine Gastroenterology
DX: N28.1 Cyst of kidney, acquired (principal); J98.4 Other disorders of lung; R11.2 Nausea with vomiting, unspecified; R63.4 Abnormal weight loss; Z90.710 Acquired absence of both cervix and uterus; Z90.49 Acquired absence of other specified parts of digestive tract
CPT/HCPCS: 74177; 80053; 82533; 83036; 84439; 84443; 85025; Q9966; Q9967; 36415

== ENCOUNTER 2020-10-15 04:05 | Emergency (ER) | payer OTHER, MEDICAID ==
[~2020-10-15] VITALS: Ht 157.5 cm; Wt 89.6 kg
[~2020-10-15 04:05] MED LIST changes: -IOHEXOL 240 MG/ML 50ML VIAL. ONE
--- NOTE | 2020-10-15 04:08 | PHYS DOC ---
Past History Past Medical History: Angina, Anxiety, Arthritis, Bipolar, Bronchitis, Cancer, COPD, CVA, Depression, Diabetes, DVT, Fibromyalgia, GERD, High Cholesterol, Hypertension, Seizure, Stroke, TIA, Vascular Disease Past Medical History Breast cancer -age 20, treated with surgery hormones and chemotherapy (no radiation) Past Surgical History: Cancer Surgery, Cholecystectomy, Hysterectomy, Knee Replacement, Other Additional Past Surgical Histo: CARDIAC STENTS Past Surgical History Bladder stimulator Right breast cancer surgery Smoking: Cigarettes, Greater than 1 pack/day Alcohol Use: None Drug Use: Marijuana General Adult HPI: HPI: ".. I have not eaten anything for past 2 to 3 days.. My stomach is all bloated.. I hurt so bad.. here in pit my stomach... and pain has gotten so bad.. and to top it all off I dropped my computer on my Lt foot.. and I am sure I broke it.. look how red and purple it is .. I just hurt it 2 hrs. .. ago..." ".. They say I got bad gastroparesis... Dr. Norwood ... is going to refer me to .. [facility] and get a feeding tube placed in me.. ".. "I have chronic pain.. every where.. .. I take Dilaudid 4 x 4 times a day or more for my pain...." " I hurt everywhere all the time.. my back, my knees, my shoulders... but the two most important tonight is lst my stomach.. and 2nd my Lt big toe .. I think that I broke a couple hours ago..." " I seen my Dr. Esther Proctor.. yesterday.. all she said was to see Dr. Norwood..and she was going to change.. one of my nerve pills....but tonight I could not stand the pain any more." Patient is a 50 year old female who presents with above hx and complaints of left first toe, bilateral knee knees, bilateral shoulder, lower back , chest and abdomen pain. Patient primary concern tonight is her epigastric/chest pain and her left first toe pain. Pt. patient has past medical history of severe COPD, does continue to smoke a pack of cigarettes a day, has had multiple cardiac stents, history of longstanding coronary artery disease with angina, bipolar disorder, sleep apnea, CVAs, TIAs, depression, diabetes, DVTs, GERD, elevated cholesterol, arthritis, sleep apnea, fibromyalgia, and multiple drug allergies or intolerances. History of breast cancer at age 20 underwent mass removal on right and chemotherapy. Patient has history of overflow incontinence however now has a bladder stimulator that causes intermittent contractions to allow emptying of bladder. Patient follows with Dr. Cota for primary care. Follows with Dr. Norwood for GI. Patient follows at for a multitude of problems, pt. has had ED evaluation of narcotic drug over dose. Pt. rates her pain currenlty as 10/10 epigastic and Lt 1st toe 9/. Patient reports she has not been able to eat other than a mouthful eggs 2 to 3 days ago. Has vomited twice tonight before arrival to the ED. Review of Systems: Review of Systems: Constitutional: Denies fever or chills Eyes: Denies change in visual acuity HENT: Denies nasal congestion or sore throat Respiratory: Complains of cough, wheezing and shortness of breath Cardiovascular: Complains of chest pain. Complains of ankle edema GI: Complains of epigastric abdominal pain, nausea, vomiting. Denies, bloody stools or diarrhea : Denies dysuria Musculoskeletal: Complains of back pain, bilateral shoulder and bilateral knee joint pain. Complains of left foot and first toe pain after dropping her computer on it Integument: Denies rash Neurologic: Denies headache, focal weakness or sensory changes Endocrine: Denies polyuria or polydipsia Lymphatic: Denies swollen glands Psychiatric: Complains of anxiety Family History: Family History: Noncontributory to presentation Current Medications: Current Meds: See nursing for home meds Allergies: Allergies: Allergies Coded Allergies Type Severity Reaction Last Updated Verified aspirin Allergy Severe Shortness of Air 01/05/17 Yes adhesive tape Allergy Intermediate 05/23/17 Yes chlordiazepoxide Allergy Intermediate Swelling 05/23/17 Yes clidinium Allergy Intermediate Swelling 05/23/17 Yes erythromycin base Allergy Intermediate Hives 01/05/17 Yes fentanyl Allergy Intermediate 05/23/17 Yes ibuprofen Allergy Intermediate Hives 01/05/17 Yes loratadine Allergy Intermediate Itching 02/01/19 Yes morphine Allergy Intermediate Swelling 05/23/17 Yes Physical Exam: PE: Constitutional: Reports acute distress, non-toxic appearance. [] HENT: Normocephalic, atraumatic, bilateral external ears normal, oropharynx moist, no oral exudates, nose normal. [] Eyes: PERRLA, EOMI, conjunctiva normal, no discharge. Glasses of Neck: Normal range of motion, no tenderness, supple, no stridor. Old surgery scar Cardiovascular: Tachycardia heart rate regular rhythm, no murmur, PMI to the left Lungs & Thorax: Bilateral breath sounds equal at apex with scattered wheezes throughout. Basilar crackles bilaterally auscultation [] Patient has right breast scar Abdomen: Bowel soundsdecreased, soft, epigastric tenderness, no masses, no pulsatile masses. Obese. Old surgery scars. Distended Tympanic stomach. Distended lower abdomen. Rebound to epigastric. Bladder stimulator. Skin: Warm, dry, no erythema, no rash. [] Back: Lumbar sacral tenderness, no CVA tenderness. [] Old surgery scar Extremities: Bilateral shoulder, bilateral knee tenderness, no cyanosis, no clubbing, ROM limited, bilateral ankle edema. [] Crepitation with movement of knees. Left toe is swollen ecchymotic. No cording in legs. Left first toe appears to dislocate when she flexes it. Neurologic: Alert and oriented X 3, moves extremities on request, has distal sensory,, no new focal deficits noted. [] Psychologic: Affect anxious, judgement normal, mood depressed, EKG: EKG: My interpretation of EKG shows a sinus rhythm at 93 bpm. No findings acute STEMI of contralateral changes. There is mild wavering baseline. And movement artifact [] Radiology/Procedures: Radiology/Procedures: My interpretation of acute abdomen film shows significant stool burden on the right. NG adequate placement. Bladder stimulator. Degenerative joint changes. Cardiomegaly. COPD changes. No obvious free air under diaphragm My interpretation of foot film, djd, no obvious significant displaced fx of lst toe, bone spurs. .[address] [address] IMAGING REPORT Signed PATIENT: RAFAEL VANCE LACCOUNT: [id number] : 1970 LOCATION: ER AGE: 50 SEX: F EXAM STATUS: REG ER ORD. PHYSICIAN: SARAH WEBB MD REASON: pain, ileus? PROCEDURE: CT ABD PELV W/ORAL&IV CONTRAST PQRS Compliance Statement: One or more of the following individualized dose reduction techniques were utilized for this examination: 1. Automated exposure control 2. Adjustment of the mA and/or kV according to patient size 3. Use of iterative reconstruction technique CT abdomen/pelvis with contrast 10/15/2020 6:39 AM INDICATION: Pain, ileus COMPARISON: None available TECHNIQUE: Multiple axial CT images of the abdomen and pelvis were obtained after the intravenous administration of 75 mL Omnipaque 300. Coronal and sagittal reformats are provided. FINDINGS: There is subsegmental atelectasis at the right lung base. Heart size is within normal limits. Nasogastric tube is identified terminating within the stomach. Liver, spleen, and bilateral adrenal glands are normal in appearance. There is mild to moderate fatty atrophy of the pancreas. Gallbladder surgically absent. No intrahepatic or extrahepatic biliary ductal dilatation. Portal venous system is patent. Abdominal aorta is normal in course and caliber. There are no pathologically enlarged lymph nodes in abdomen and pelvis. There is no free fluid or free intraperitoneal air. A right gluteal battery pack is identified with a single lead terminating in the right presacral space. There is an abandoned lead terminating in the left presacral space. Small and large bowel are normal in caliber. No bowel obstruction or inflammation. Appendix is not definitively visualized. No pericecal inflammatory changes are identified. Oral contrast was administered. Opacified bowel loops since her normal mucosal fold pattern. There is a simple cyst in the anterior inferior right kidney measuring 11 mm. The kidneys enhance symmetrically. There is no suspicious renal mass. There is no hydronephrosis. There are no suspected calculi within the kidneys, ureters or urinary bladder. Urinary bladder is within normal limits given degree of distention. Hysterectomy changes are identified. No suspicious pelvic mass. No suspicious osseous abnormality is identified. IMPRESSION: No acute abnormality is identified in abdomen and pelvis as described in detail above. Electronically signed by: Neahl Walls MD (10/15/2020 7:28 AM) [id number] DICTATED AND SIGNED BY: NEHAL WALLS MD DATE: 10/15/20 0724 CC: DALJIT CORBIN DO; SARAH WEBB MD; ELI PROCTOR MD ~MTH0 [address] [address] IMAGING REPORT Signed PATIENT: RAFAEL VANCE: [id number] : 1970 LOCATION: ER AGE: 50 SEX: F EXAM STATUS: REG ER ORD. PHYSICIAN: SARAH WEBB MD REASON: dropped comput. lt. foot pain PROCEDURE: FOOT LEFT 3V XR FOOT_LEFT 3 VIEWS 10/15/2020 4:40 AM INDICATION: Dropped computer on left foot. Pain COMPARISON: None available. TECHNIQUE: 3 views of the left foot are provided. FINDINGS/ IMPRESSION: There may be a minimally displaced fracture of the medial cuneiform, poorly evaluated due to overlapping structures. Further characterization with cross- sectional imaging is recommended. Joint spaces are maintained. Bone mineralization is within normal limits. There is no soft tissue gas or osseous erosion. No radiopaque foreign body. Posterior and plantar calcaneal enthesophytes are present. Electronically signed by: Nehal Walls MD (10/15/2020 7:12 AM) [id number] DICTATED AND SIGNED BY: NEHAL WALLS MD DATE: 10/15/20 0710 CC: DALJIT CORBIN DO; SARAH WEBB MD; ELI PROCTOR MD ~MTH0 [address] [address] IMAGING REPORT Signed PATIENT: RAFAEL VANCE: [id number] : 1970 LOCATION: ER AGE: 50 SEX: F EXAM STATUS: REG ER ORD. PHYSICIAN: SARAH WEBB MD REASON: severe pain, nausea, vomiting, hx gastroparesis PROCEDURE: ACUTE ABDOMEN SERIES XR ABDOMEN COMP ACUTE 10/15/2020 4:40 AM INDICATION: Severe pain, nausea and vomiting. COMPARISON: CT abdomen/pelvis 09/10/2020 TECHNIQUE: Upright view of the chest, upright view the abdomen and supine views of the abdomen are provided. FINDINGS/ IMPRESSION: 1. Nasogastric tube is identified with the side port projecting over the gastric lumen. Mild gaseous distention of the stomach. Right gluteal sacral stimulator device is identified with single lead projecting over the right lower sacral region. Abandoned lead projects over the left sacrum. 2. Cardiomediastinal silhouette is within normal limits. No pleural effusions, pulmonary vascular congestion or pneumothorax. 3. No free intraperitoneal air. No dilated loops of small or large bowel. Moderate amount of stool is noted throughout the colon. 4. No suspicious genitourinary calcifications. No significant osseous abnormality. Electronically signed by: Nehal Walls MD (10/15/2020 7:10 AM) [id number] DICTATED AND SIGNED BY: NEHAL WALLS MD DATE: 10/15/20 0709 CC: SARAH WEBB MD; ELI PROCTOR MD ~MTH0 0 Heart Score: HEART Score for Chest Pain: HEART Score for Chest Pain Response (Comments) Value History Slighlty/Non-Suspicious 0 ECG Normal 0 Age >45 - < 65 1 Risk Factors 1 or 2 Risk Factors 1 Troponin < Normal Limit 0 Total 2 Risk Factors: Risk Factors: DM, Current or recent (<one month) smoker, HTN, HLP, family history of CAD, obesity. Risk Scores: Score 0 - 3: 2.5% MACE over next 6 weeks - Discharge Home Score 4 - 6: 20.3% MACE over next 6 weeks - Admit for Clinical Observation Score 7 - 10: 72.7% MACE over next 6 weeks - Early Invasive Strategies Course & Med Decision Making: Course & Med Decision Making Pertinent Labs and Imaging studies reviewed. (See chart for details) NG placed by Nursing to decompress stomach and for placement of contrast to eval.. GI complaints. X-ray post shows adequate placement. Minimal epistaxis from placement.-Patient is taking Xarelto. Pt. Endorsed to Dr. Corbin at shift change. CT pending. Dr. Corbin will make disposition. Impression: 1. Abdomen pain-suspect dynamic/ functional ileus versus structural-bowel obstruction etc. 2. Constipation 3. Left first toe contusion/dislocates with flexion ( Recent contusion) 4. Hx. Chronic Gastroparesis 5. Diabetes glucose 126 6. Chronic Pain Syndrome- Narcotic Dependent 7. Hx. COPD 8. Hx. CADz 9. Hx. DJD 10. Hx. Depression, Anxiety, Bipolar 11. Polypharmacy 12. Tobacco Use [] Dragon Disclaimer: Dragon Disclaimer: This electronic medical record was generated, in whole or in part, using a voice recognition dictation system. Departure Departure: Referrals: ELI PROCTOR MD (PCP) Art Disclaimer This chart was dictated in whole or in part using Voice Recognition software in a busy, high-work load, and often noisy Emergency Department environment. It may contain unintended and wholly unrecognized errors or omissions. SARAH WEBB MD Oct 15, 2020 04:08
--- NOTE | 2020-10-15 04:42 | EKG ---
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
[2020-10-15] MEDS ORDERED: IV RINGERS SOLUTION,LACTATED 1,000 ML IV SCH (04:45)
[2020-10-15] MEDS ORDERED: HYDROmorphone PF 2 MG/ML VIAL IM ONE (04:45)
[2020-10-15] MEDS ORDERED: IOHEXOL 240 MG/ML 50ML VIAL. ONE (05:19)
[2020-10-15] MEDS ORDERED: IOHEXOL 240 MG/ML 50ML VIAL. PO ONE (05:30)
[2020-10-15] MEDS ORDERED: CONTRAST GIVEN. MC PRN (05:45)
[2020-10-15] MEDS ORDERED: IOHEXOL 300 MG/ML 75 ML VIAL. IV ONE (05:45)
[2020-10-15 05:47] LABS: BASO # 0.1 x10^3/uL (0.0-0.2); BASO % 1 % (0-3); EOS # 0.2 x10^3/uL (0.0-0.7); EOS % 2 % (0-3); HEMATOCRIT 37.2 % (36.0-47.0); HEMOGLOBIN 12.3 g/dL (12.0-15.5); LYMPH # 2.3 x10^3/uL (1.0-4.8); LYMPH % 31 % (24-48); MEAN CORPUSCULAR HEMOGLOBIN 30 pg (25-35); MEAN CORPUSCULAR HGB CONC 33 g/dL (31-37); MEAN CORPUSCULAR VOLUME 92 fL (79-100); MONO # 0.8 x10^3/uL (0.0-1.1); MONO % 11 % (0-9); NEUT % 54 % (31-73); PLATELET COUNT 292 x10^3/uL (140-400); RED BLOOD COUNT 4.06 x10^6/uL (3.50-5.40); RED CELL DISTRIBUTION WIDTH 14.1 % (11.5-14.5); WHITE BLOOD COUNT 7.4 x10^3/uL (4.0-11.0)
[2020-10-15 05:51] LABS: CALCIUM 8.3 mg/dL (8.5-10.1); CREATININE 0.9 mg/dL (0.6-1.0); GFR 65.8; POTASSIUM 3.9 mmol/L (3.5-5.1)
[2020-10-15 06:03] LABS: ALBUMIN 3.5 g/dL (3.4-5.0); DIRECT BILIRUBIN 0.1 mg/dL (0.0-0.2); MAGNESIUM 2.2 mg/dL (1.8-2.4); TOTAL BILIRUBIN 0.3 mg/dL (0.2-1.0); TOTAL PROTEIN 6.5 g/dL (6.4-8.2)
[2020-10-15 06:25] VITALS: BP 86/44
--- NOTE | 2020-10-15 07:13 | RAD ---
XR ABDOMEN COMP ACUTE 10/15/2020 4:40 AM INDICATION: Severe pain, nausea and vomiting. COMPARISON: CT abdomen/pelvis 09/10/2020 TECHNIQUE: Upright view of the chest, upright view the abdomen and supine views of the abdomen are p rovided. FINDINGS/ IMPRESSION: 1. Nasogastric tube is identified with the side port projecting over the gastric lumen. Mild gaseous distention of the stomach. Right gluteal sacral stimulator device is identified with single lead proj ecting over the right lower sacral region. Abandoned lead projects over the left sacrum. 2. Cardiomediastinal silhouette is within normal limits. No pleural effusions, pulmonary vascular con gestion or pneumothorax. 3. No free intraperitoneal air. No dilated loops of small or large bowel. Moderate amount of stool is noted throughout the colon. 4. No suspicious genitourinary calcifications. No significant osseous abnormality. Electronically signed by: Julia Barcenas MD (10/15/2020 7:10 AM) [id number]
--- NOTE | 2020-10-15 07:18 | RAD ---
XR FOOT_LEFT 3 VIEWS 10/15/2020 4:40 AM INDICATION: Dropped computer on left foot. Pain COMPARISON: None available. TECHNIQUE: 3 views of the left foot are provided. FINDINGS/ IMPRESSION: There may be a minimally displaced fracture of the medial cuneiform, poorly evaluated due to overlapp ing structures. Further characterization with cross-sectional imaging is recommended. Joint spaces ar e maintained. Bone mineralization is within normal limits. There is no soft tissue gas or osseous ero james. No radiopaque foreign body. Posterior and plantar calcaneal enthesophytes are present. Electronically signed by: Julia Barcenas MD (10/15/2020 7:12 AM) [id number]
--- NOTE | 2020-10-15 07:31 | RAD ---
PQRS Compliance Statement: One or more of the following individualized dose reduction techniques were utilized for this examinat ion: 1. Automated exposure control 2. Adjustment of the mA and/or kV according to patient size 3. Use of iterative reconstruction technique CT abdomen/pelvis with contrast 10/15/2020 6:39 AM INDICATION: Pain, ileus COMPARISON: None available TECHNIQUE: Multiple axial CT images of the abdomen and pelvis were obtained after the intravenous adm inistration of 75 mL Omnipaque 300. Coronal and sagittal reformats are provided. FINDINGS: There is subsegmental atelectasis at the right lung base. Heart size is within normal limit s. Nasogastric tube is identified terminating within the stomach. Liver, spleen, and bilateral adrena l glands are normal in appearance. There is mild to moderate fatty atrophy of the pancreas. Gallbladd er surgically absent. No intrahepatic or extrahepatic biliary ductal dilatation. Portal venous system is patent. Abdominal aorta is normal in course and caliber. There are no pathologically enlarged lym ph nodes in abdomen and pelvis. There is no free fluid or free intraperitoneal air. A right gluteal b attery pack is identified with a single lead terminating in the right presacral space. There is an ab andoned lead terminating in the left presacral space. Small and large bowel are normal in caliber. No bowel obstruction or inflammation. Appendix is not definitively visualized. No pericecal inflammator y changes are identified. Oral contrast was administered. Opacified bowel loops since her normal muco damon fold pattern. There is a simple cyst in the anterior inferior right kidney measuring 11 mm. The kidneys enhance sym metrically. There is no suspicious renal mass. There is no hydronephrosis. There are no suspected anoop culi within the kidneys, ureters or urinary bladder. Urinary bladder is within normal limits given de gree of distention. Hysterectomy changes are identified. No suspicious pelvic mass. No suspicious oss eous abnormality is identified. IMPRESSION: No acute abnormality is identified in abdomen and pelvis as described in detail above. Electronically signed by: Julia Barcenas MD (10/15/2020 7:28 AM) [id number]
--- NOTE | 2020-10-15 08:44 | RAD ---
EXAM: Left foot CT without IV contrast INDICATION: Reason: left foot, concern for cuneiform fx / Spl. Instructions: / History: TECHNIQUE: Helical CT of the left foot was performed without IV contrast and reviewed in multiplanar reformats. All CT scans performed at this facility utilize dose optimization techniques as appropriat e to the exam, including the following: Automated exposure control and adjustment of the mA and/or KV according to patient size (this includes techniques or standardized protocols for targeted exams whe re dose is indication/reason for exam). IV CONTRAST: Administered COMPARISON: Left foot x-rays of 10/15/2020 FINDINGS: Bones are well aligned and show normal mineralization. Some motion artifact is present at the base of the metatarsals but the tarsal bones appear intact wi th no evidence of a fracture or osseous malalignment. Soft tissues show mild soft tissue edema over the distal second metatarsal shaft IMPRESSION: Despite motion artifact, there is no definite evidence of a fracture in the left mid foot involving t he tarsal bones on CT, including the questioned medial cuneiform. A bone bruise is not excluded and i f further imaging is warranted, MRI could be considered in further evaluation. A follow-up radiograph could also be considered to assess for healing response. Electronically signed by: Lynn Joe MD (10/15/2020 8:37 AM) [id number]
== END 2020-10-15 08:57 | disposition home or self-care (01) ==
LOC: ER 04:05
DX: K59.00 Constipation, unspecified (principal); G89.4 Chronic pain syndrome; E11.9 Type 2 diabetes mellitus without complications; J44.9 Chronic obstructive pulmonary disease, unspecified; I25.10 Atherosclerotic heart disease of native coronary artery without angina pectoris; F31.9 Bipolar disorder, unspecified; F41.9 Anxiety disorder, unspecified; M19.90 Unspecified osteoarthritis, unspecified site; M79.7 Fibromyalgia; E78.00 Pure hypercholesterolemia, unspecified; I10 Essential (primary) hypertension; F17.210 Nicotine dependence, cigarettes, uncomplicated; Z86.73 Personal history of transient ischemic attack (TIA), and cerebral infarction without residual deficits; Z86.718 Personal history of other venous thrombosis and embolism; Z88.6 Allergy status to analgesic agent; Z88.1 Allergy status to other antibiotic agents; Z88.5 Allergy status to narcotic agent; Z88.8 Allergy status to other drugs, medicaments and biological substances
CPT/HCPCS: 36415; 73630; 73700; 74022; 74177; 80048; 80076; 82150; 82550; 83690; 83735; 83880; 84443; 84484; 85025; 85379; 85610; 85730; 86705; 86709; 86803; 87340; 93005; 96360; 96361; 96372; 99285; J1170; J7120; Q9966; Q9967

== ENCOUNTER → 2021-01-17 | Outpatient (CLI) | payer OTHER, MEDICAID ==
[~2021-01-17] MED LIST changes: -ISOS30TA4 PO; +ISOS30TA68 PO; -ISOS60TA2 PO; +ISOS60TA55 PO
[2021-01-17 15:31] LABS: BASO % 1 % (0-3); EOS # 0.1 x10^3/uL (0.0-0.7); EOS % 2 % (0-3); HEMATOCRIT 42.1 % (36.0-47.0); HEMOGLOBIN 14.1 g/dL (12.0-15.5); LYMPH # 1.8 x10^3/uL (1.0-4.8); LYMPH % 27 % (24-48); MEAN CORPUSCULAR HEMOGLOBIN 31 pg (25-35); MEAN CORPUSCULAR HGB CONC 33 g/dL (31-37); MEAN CORPUSCULAR VOLUME 93 fL (79-100); MONO # 0.6 x10^3/uL (0.0-1.1); MONO % 9 % (0-9); NEUT # 4.1 x10^3uL (1.8-7.7); NEUT % 62 % (31-73); PLATELET COUNT 299 x10^3/uL (140-400); RED BLOOD COUNT 4.54 x10^6/uL (3.50-5.40); RED CELL DISTRIBUTION WIDTH 13.4 % (11.5-14.5); WHITE BLOOD COUNT 6.6 x10^3/uL (4.0-11.0)
[2021-01-17 15:40] LABS: ALBUMIN 3.7 g/dL (3.4-5.0); ALBUMIN/GLOBULIN RATIO 1.2 (1.0-1.7); CALCIUM 9.3 mg/dL (8.5-10.1); CREATININE 0.6 mg/dL (0.6-1.0); POTASSIUM 4.5 mmol/L (3.5-5.1); TOTAL BILIRUBIN 0.3 mg/dL (0.2-1.0); TOTAL PROTEIN 6.8 g/dL (6.4-8.2)
== END ==
LOC: LAB 14:24
PROVIDERS: ATTEND Internal Medicine Gastroenterology
DX: R10.84 Generalized abdominal pain (principal)
CPT/HCPCS: 36415; 80053; 85025; 85610

== ENCOUNTER → 2021-01-20 | Outpatient (CLI) | payer OTHER, MEDICAID | LOC: LAB 10:45 | PROVIDERS: ATTEND Radiology Vascular & Interventional Radiology | DX: Z01.812 Encounter for preprocedural laboratory examination (principal); Z20.822 Contact with and (suspected) exposure to COVID-19 | CPT/HCPCS: U0003; U0005 ==

== ENCOUNTER 2021-02-24 08:45 | Emergency (ER) | payer OTHER, MEDICAID ==
[~2021-02-24] VITALS: Ht 157.5 cm; Wt 84.8 kg
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
[2021-02-24] MEDS ORDERED: IOHEXOL 300 MG/ML 75 ML VIAL. IV ONE (09:30)
[2021-02-24] MEDS ORDERED: HYDROmorphone PF 1 MG/ML DISP.SYRIN IVP ONE (09:30)
[2021-02-24] MEDS ORDERED: CONTRAST GIVEN. MC PRN (09:30)
[2021-02-24 10:06] LABS: BASO # 0.1 x10^3/uL (0.0-0.2); BASO % 1 % (0-3); EOS # 0.1 x10^3/uL (0.0-0.7); EOS % 1 % (0-3); HEMATOCRIT 38.8 % (36.0-47.0); HEMOGLOBIN 12.8 g/dL (12.0-15.5); LYMPH # 2.3 x10^3/uL (1.0-4.8); LYMPH % 20 % (24-48); MEAN CORPUSCULAR HEMOGLOBIN 31 pg (25-35); MEAN CORPUSCULAR HGB CONC 33 g/dL (31-37); MEAN CORPUSCULAR VOLUME 92 fL (79-100); MONO # 1.2 x10^3/uL (0.0-1.1); MONO % 11 % (0-9); NEUT # 7.7 x10^3uL (1.8-7.7); NEUT % 67 % (31-73); PLATELET COUNT 301 x10^3/uL (140-400); RED BLOOD COUNT 4.21 x10^6/uL (3.50-5.40); RED CELL DISTRIBUTION WIDTH 13.6 % (11.5-14.5); WHITE BLOOD COUNT 11.5 x10^3/uL (4.0-11.0)
[2021-02-24 10:13] LABS: CALCIUM 8.6 mg/dL (8.5-10.1); CREATININE 0.8 mg/dL (0.6-1.0); GFR 75.3; POTASSIUM 4.7 mmol/L (3.5-5.1)
[2021-02-24 10:19] LABS: ALBUMIN 3.5 g/dL (3.4-5.0); ALBUMIN/GLOBULIN RATIO 1.1 (1.0-1.7); TOTAL BILIRUBIN 0.5 mg/dL (0.2-1.0); TOTAL PROTEIN 6.6 g/dL (6.4-8.2)
--- NOTE | 2021-02-24 10:58 | RAD ---
EXAM: Abdomen and pelvis CT with intravenous contrast. HISTORY: PEG tube trauma. TECHNIQUE: Computed tomographic images of the abdomen and pelvis were obtained following the administ ration of intravenous contrast. Multiplanar reformatting was performed. *One or more of the following individualized dose reduction techniques were utilized for this examina tion: 1. Automated exposure control. 2. Adjustment of the mA and/or kV according to patient size. 3. Use of iterative reconstruction technique. COMPARISON: 10/15/2020 and 01/14/2019. FINDINGS: Evaluation of the lower thorax demonstrates lingular and medial right middle lobe atelectas is or scarring. There is a calcified granuloma within the left lower lobe. The heart is normal in siz e. There is mild biliary ductal dilatation likely due to reservoir effect status post cholecystectomy . No suspicious hepatic lesion is seen on this noncontrast exam. And the pancreas and spleen are unre markable. There is a 2.1 cm left adrenal nodule, stable in appearance. There is also a suspected 6 mm nodule involving the jayro of the right adrenal gland. There is a gastrostomy tube terminating within the stomach. There is fatty stranding along the course of the tube through the left ventral abdominal wall subcutaneous fat. There is a tiny focus of gas a long the course of the tube at the level of a mild asymmetrically enlarged left rectus abdominal musc le belly. No intraperitoneal free air or drainable fluid collection is seen. There is a 1.1 cm right renal cortical cyst. There is no hydronephrosis. There are few colonic divert icula. There is no evidence of diverticulitis. There is no bowel obstruction. The aorta is normal in caliber. There is no lymphadenopathy. There are surgical anchors within the pubic bones. There is a g enerator within the right buttock with leads overlying the presacral space. There is degenerative jaspal nge primarily at L3-L4. IMPRESSION: 1. Fatty stranding and tiny focus of gas surrounding a PEG tube catheter traverses a the left ventral abdominal wall and slight asymmetric thickening of the left rectus abdominis muscle, likely due to r ecent catheter placement. The possibility of superimposed soft tissue contusion is not excluded given a history of recent PEG tube trauma. No drainable collection, hematoma or extravasation is seen. The catheter terminates in expected position. 2. Stable 2.1 cm left adrenal nodule and suspected 6 mm right adrenal nodule. The two-year course of stability favors benign adrenal adenomas. 3. Stable small right renal cortical cyst. Follow-up is not routinely performed for simple cysts. 4. Few colonic diverticula. Electronically signed by: Mariam Marsh MD (02/24/2021 10:56 AM) [id number]
[2021-02-24 11:24] VITALS: BP 141/91
== END 2021-02-24 11:39 | disposition home or self-care (01) ==
LOC: EEVIPCON 08:45 → ER 08:45
DX: T85.848A Pain due to other internal prosthetic devices, implants and grafts, initial encounter (principal); J44.9 Chronic obstructive pulmonary disease, unspecified; K21.9 Gastro-esophageal reflux disease without esophagitis; F12.10 Cannabis abuse, uncomplicated; F17.210 Nicotine dependence, cigarettes, uncomplicated; Z86.73 Personal history of transient ischemic attack (TIA), and cerebral infarction without residual deficits; Z90.49 Acquired absence of other specified parts of digestive tract; Z90.710 Acquired absence of both cervix and uterus; Z88.1 Allergy status to other antibiotic agents; Z88.6 Allergy status to analgesic agent; Z88.8 Allergy status to other drugs, medicaments and biological substances
CPT/HCPCS: 36415; 74177; 80053; 85025; 96374; 99285; J1170; Q9967

== ENCOUNTER 2021-03-05 23:17 | Emergency (ER) | payer OTHER, MEDICAID ==
[~2021-03-05] VITALS: Ht 160 cm; Wt 83.3 kg
[~2021-03-05 23:17] MED LIST changes: -OMEP40CA45 PO; +OMEP40CA7 PO
[2021-03-05] MEDS ORDERED: IV RINGERS SOLUTION,LACTATED 1,000 ML IV SCH (23:30)
[2021-03-05] MEDS ORDERED: FAMOTIDINE 20 MG/2 ML VIAL IVP ONE (23:30)
[2021-03-05] MEDS ORDERED: ONDANSETRON PF 4 MG/2 ML VIAL. IVP ONE (23:30)
--- NOTE | 2021-03-06 00:05 | RAD ---
CT Head W/O Contrast: History: Reason: FALL, SEIZURE LIKE ACTIVITY / Spl. Instructions: / History: Comparison: none Axial images were obtained without contrast. The meadows and white matter appears normal and symmetrical for the patients age. There is no mass effe ct, extraaxial fluid collections or hydrocephalus. There is no gross bleed. There is no focal loss of meadows-white matter distinction to suggest acute ischemia, i.e. stroke. Impression: No acute findings. End impression CT C-Spine without contrast: Clinical History: Reason: FALL, SEIZURE LIKE ACTIVITY / Spl. Instructions: / History: Technique: Axial helical images of the cervical spine were obtained without contrast, axial coronal and sagittal reconstruction was performed. Findings: There is beam Chadwick artifact from hardware from prior anterior fusion of C4-C6. There is no loss of vertebral body stature. There is no prevertebral soft tissue swelling. The vertebral bodies are we ll aligned. The C1-C2 relationship is normal. The visualized osseous structures appear normal. Evalu ation of the central canal is limited without contrast. There is multiple posterior disc bulges resul ting in flattening of the thecal sac. There does not appear to be gross flattening of the cervical co rd. There is moderate narrowing of multiple neuroforamen. Impression: No acute findings. Clinical correlation suggested. PQRS Compliance Statement: One or more of the following individualized dose reduction techniques were utilized for this examinat ion: 1. Automated exposure control 2. Adjustment of the mA and/or kV according to patient size 3. Use of iterative reconstruction technique Electronically signed by: Jamin Gomez III, MD (03/06/2021 12:03 AM) [id number]
--- NOTE | 2021-03-06 00:16 | RAD ---
EXAM: Frontal view of the chest, AP views of the abdomen in upright and supine positions. CLINICAL INDICATION: Reason: n/v/dizzy, pain / Spl. Instructions: / History: COMPARISON: 10/15/2020 FINDINGS and IMPRESSION: The heart is not enlarged. Mediastinal and hilar contours are normal. No focal parenchymal airspace o pacity. No pleural effusion or pneumothorax. No abnormal small or large bowel dilatation. Gastrostomy tube is seen within the body of the stomach. Moderate colonic stool content. No abnormal soft tissue mass effect. No suspicious calcifications are seen. No free intraperitoneal gas. These are seen within the sacrum. Electronically signed by: Fco Pineda MD (03/06/2021 12:13 AM) MATHEW
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
[2021-03-06] MEDS ORDERED: ONDANSETRON PF 4 MG/2 ML VIAL. IVP ONE (01:00)
[2021-03-06] MEDS ORDERED: LORazepam 1 MG TABLET PO ONE (01:00)
[2021-03-06] MEDS ORDERED: MAGNESIUM HYDROXIDE 2,400 MG/30 ML ORAL.SUSP. PO ONE (01:00)
[2021-03-06] MEDS ORDERED: FAMOTIDINE 20 MG/2 ML VIAL IVP ONE (01:00)
[2021-03-06 01:07] LABS: CALCIUM 9.1 mg/dL (8.5-10.1); CREATININE 0.8 mg/dL (0.6-1.0); GFR 75.3; POTASSIUM 3.7 mmol/L (3.5-5.1)
[2021-03-06 01:10] LABS: BASO % 1 % (0-3); EOS # 0.1 x10^3/uL (0.0-0.7); EOS % 1 % (0-3); HEMATOCRIT 44.9 % (36.0-47.0); HEMOGLOBIN 14.8 g/dL (12.0-15.5); LYMPH # 2.5 x10^3/uL (1.0-4.8); LYMPH % 32 % (24-48); MEAN CORPUSCULAR HEMOGLOBIN 30 pg (25-35); MEAN CORPUSCULAR HGB CONC 33 g/dL (31-37); MEAN CORPUSCULAR VOLUME 92 fL (79-100); MONO # 0.8 x10^3/uL (0.0-1.1); MONO % 10 % (0-9); NEUT # 4.5 x10^3uL (1.8-7.7); NEUT % 57 % (31-73); PLATELET COUNT 356 x10^3/uL (140-400); RED BLOOD COUNT 4.88 x10^6/uL (3.50-5.40); RED CELL DISTRIBUTION WIDTH 13.8 % (11.5-14.5); WHITE BLOOD COUNT 7.9 x10^3/uL (4.0-11.0)
[2021-03-06 01:13] LABS: ALBUMIN 3.7 g/dL (3.4-5.0); DIRECT BILIRUBIN 0.2 mg/dL (0.0-0.2); MAGNESIUM 2.1 mg/dL (1.8-2.4); TOTAL BILIRUBIN 0.5 mg/dL (0.2-1.0)
--- NOTE | 2021-03-06 02:19 | EKG ---
[address] [address] Test Date: 2021-03-05 Test Time: 23:49:08 Pat Name: RAFAEL VANCE Department: Room: Gender: F Town Planner: : 1970 Requested By: SARAH WEBB Order Number: [id number] Reading MD: Lito Spears Measurements Intervals [place] Rate: 68 P: 57 WV: 166 QRS: 46 QRSD: 94 T: 45 QT: 406 QTc: 437 Interpretive Statements SINUS RHYTHM Electronically Signed On 03-08-2021 15:27:50 CDT by Lito Spears
[2021-03-06 02:32] LABS: CLARITY,URINE HAZY; COLOR,URINE AMBER; GLUCOSE,URINE NEG (NEG)
[2021-03-06 02:33] LABS: BACTERIA,URINE FEW /HPF (0-FEW); BILIRUBIN,URINE SMALL (NEG); NITRITE,URINE NEG (NEG); RBC,URINE OCC /HPF (0-2); SQUAMOUS EPITHELIAL CELL,UR FEW /LPF; UROBILINOGEN,URINE 0.2 mg/dL (0.2 mg/dL); WBC,URINE OCC /HPF (0-4)
[2021-03-06 02:37] LABS: BARBITURATES NEG (NEG); BENZODIAZEPINES NEG (NEG); CANNABINOIDS POS (NEG); COCAINE NEG (NEG); METHADONE NEG (NEG); OPIATES POS (NEG); PHENCYCLIDINE POS (NEG)
[2021-03-06 02:41] LABS: AMPHETAMINE/METHAMPHETAMINE POS (NEG)
[2021-03-06 03:15] VITALS: BP 120/70
== END 2021-03-06 03:15 | disposition home or self-care (01) ==
LOC: ER 23:17
DX: G40.909 Epilepsy, unspecified, not intractable, without status epilepticus (principal); F19.10 Other psychoactive substance abuse, uncomplicated; F12.10 Cannabis abuse, uncomplicated; R41.82 Altered mental status, unspecified; G89.4 Chronic pain syndrome; M19.90 Unspecified osteoarthritis, unspecified site; J44.9 Chronic obstructive pulmonary disease, unspecified; K59.00 Constipation, unspecified; F15.90 Other stimulant use, unspecified, uncomplicated; F31.9 Bipolar disorder, unspecified; I11.0 Hypertensive heart disease with heart failure; I50.9 Heart failure, unspecified; E11.9 Type 2 diabetes mellitus without complications; I10 Essential (primary) hypertension; F17.210 Nicotine dependence, cigarettes, uncomplicated; K21.9 Gastro-esophageal reflux disease without esophagitis; E78.00 Pure hypercholesterolemia, unspecified; Z86.73 Personal history of transient ischemic attack (TIA), and cerebral infarction without residual deficits; Z88.6 Allergy status to analgesic agent; Z88.8 Allergy status to other drugs, medicaments and biological substances; Z88.1 Allergy status to other antibiotic agents; Z88.5 Allergy status to narcotic agent; W18.39XA Other fall on same level, initial encounter; Y93.89 Activity, other specified; Y92.89 Other specified places as the place of occurrence of the external cause; Y99.8 Other external cause status
CPT/HCPCS: 36415; 70450; 72125; 74022; 80048; 80076; 80307; 81001; 81025; 82550; 83690; 83735; 84484; 85025; 86705; 86709; 86803; 87340; 93005; 96361; 96374; 96375; 99285; J2405; J3490; J7120

== ENCOUNTER → 2021-03-18 | Outpatient (CLI) | payer OTHER, MEDICAID ==
[2021-03-06 03:15] VITALS: BP 120/70
[~2021-03-18] MED LIST changes: +IOHEXOL 240 MG/ML 50ML VIAL. ONE; +IOHEXOL 240 MG/ML 50ML VIAL. PO ONE; +IOHEXOL 300 MG/ML 75 ML VIAL. IV ONE
--- NOTE | 2021-03-18 14:24 | RAD ---
EXAM: CT ABDOMEN/PELVIS WITH CONTRAST. HISTORY: Swelling around gastrostomy catheter. TECHNIQUE: Computed tomography of the abdomen and pelvis was performed after the intravenous administ ration of iodinated contrast. One or more of the following individualized dose reduction techniques w ere utilized for this examination: 1. Automated exposure control. 2. Adjustment of the mA and/or kV according to patient size. 3. Use of iterative reconstruction technique. COMPARISON: 02/24/2021. FINDINGS: Lung windows through the visualized portions of the bases reveal a calcified left lower lob e granuloma. Bone windows reveal no suspicious lesions. A gastrostomy catheter has its balloon and tip within the lumen. There is mild inflammatory change wi thin the subcutaneous compartment and left rectus muscle. There is no drainable collection or evidenc e of leak/perforation. The gallbladder is surgically absent. The liver, spleen, and pancreas are unremarkable. A low-density nodule in the left adrenal gland measures 26 Hounsfield units and 1.8 x 1.6 cm. This is indeterminat e by CT criteria but stable chronically and likely reflects a benign adenoma. A subcentimeter nodule centrally in the right adrenal gland is also stable and likely benign. A benign right renal cyst gee ures 1.2 cm. There are no pathologically enlarged lymph nodes. There is no small bowel obstruction. The uterus is surgically absent. There is no evidence of appendicitis. IMPRESSION: 1. Mild subcutaneous induration about the gastrostomy catheter suggests cellulitis. No fluid collecti on or evidence of leak. The appearance is unchanged since the prior study. 2. Small bilateral adrenal nodules are stable chronically and likely reflect benign adenomas. Electronically signed by: Brett Conner MD (03/18/2021 2:22 PM) [id number]
== END ==
LOC: CT 12:08
PROVIDERS: ATTEND Internal Medicine
DX: E27.9 Disorder of adrenal gland, unspecified (principal); R59.9 Enlarged lymph nodes, unspecified
CPT/HCPCS: 74177; Q9967

== ENCOUNTER 2021-05-13 11:28 | Emergency (ER) | payer OTHER, MEDICAID ==
[~2021-05-13] VITALS: Ht 160 cm; Wt 83.3 kg
[~2021-05-13 11:28] MED LIST changes: -IOHEXOL 240 MG/ML 50ML VIAL. ONE; -IOHEXOL 240 MG/ML 50ML VIAL. PO ONE; -IOHEXOL 300 MG/ML 75 ML VIAL. IV ONE
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
--- NOTE | 2021-05-13 11:47 | EKG ---
[address] [address] Test Date: 2021-05-13 Test Time: 11:32:40 Pat Name: RAFAEL VANCE Department: Room: Gender: F Manager Action: ANTHONY : 1970 Requested By: NESSA PAT Order Number: [id number] Reading MD: Measurements Intervals [place] Rate: 92 P: 85 ID: [id number] QRS: -33 QRSD: 82 T: 43 QT: 352 QTc: 440 Interpretive Statements SINUS RHYTHM NO SPECIFIC ECG ABNORMALITIES RI6.02 No previous ECG available for comparison
[2021-05-13 12:08] LABS: BASO # 0.1 x10^3/uL (0.0-0.2); BASO % 1 % (0-3); EOS # 0.1 x10^3/uL (0.0-0.7); EOS % 1 % (0-3); LYMPH # 1.6 x10^3/uL (1.0-4.8); LYMPH % 21 % (24-48); MEAN CORPUSCULAR HEMOGLOBIN 31 pg (25-35); MEAN CORPUSCULAR HGB CONC 33 g/dL (31-37); MEAN CORPUSCULAR VOLUME 92 fL (79-100); MONO # 0.5 x10^3/uL (0.0-1.1); MONO % 6 % (0-9); NEUT # 5.6 x10^3uL (1.8-7.7); NEUT % 71 % (31-73); PLATELET COUNT 372 x10^3/uL (140-400); RED BLOOD COUNT 5.25 x10^6/uL (3.50-5.40); RED CELL DISTRIBUTION WIDTH 13.9 % (11.5-14.5); WHITE BLOOD COUNT 7.8 x10^3/uL (4.0-11.0)
[2021-05-13 12:24] LABS: CALCIUM 9.6 mg/dL (8.5-10.1); CREATININE 0.7 mg/dL (0.6-1.0); GFR 87.5; POTASSIUM 4.5 mmol/L (3.5-5.1)
[2021-05-13 12:29] LABS: ALBUMIN/GLOBULIN RATIO 1.4 (1.0-1.7); TOTAL BILIRUBIN 0.6 mg/dL (0.2-1.0); TOTAL PROTEIN 6.9 g/dL (6.4-8.2)
--- NOTE | 2021-05-13 13:35 | RAD ---
XR CHEST 1V CLINICAL INDICATIONS: Reason: chest pain, shortness of breath COMPARISON: March 05, 2021. Findings: Small granuloma of the left lung base is evident. No acute lung infiltrate or pleural effus ion or pulmonary edema or lung mass or pneumothorax is seen. The heart size, pulmonary vasculature, mediastinum and both lay are unremarkable. IMPRESSION: No acute radiographic abnormality is seen. Electronically signed by: Francisco Wisdom MD (05/13/2021 1:32 PM) [id number]
[2021-05-13 15:06] VITALS: BP 125/79
== END 2021-05-13 15:14 | disposition home or self-care (01) ==
LOC: ER 11:28
DX: R07.89 Other chest pain (principal); I11.0 Hypertensive heart disease with heart failure; I50.9 Heart failure, unspecified; E11.9 Type 2 diabetes mellitus without complications; F17.210 Nicotine dependence, cigarettes, uncomplicated; F12.10 Cannabis abuse, uncomplicated; Z88.5 Allergy status to narcotic agent; Z88.6 Allergy status to analgesic agent; Z90.49 Acquired absence of other specified parts of digestive tract
CPT/HCPCS: 36415; 71045; 80053; 83880; 84484; 85025; 85379; 93005; 99285-25

== ENCOUNTER → 2021-05-23 | Outpatient (CLI) | payer OTHER, MEDICAID ==
[2021-05-13 15:06] VITALS: BP 125/79
--- NOTE | 2021-05-23 16:41 | RAD ---
INDICATION: 51 years of age asymptomatic female patient presents for screening mammography. TECHNIQUE: Full field craniocaudal and mediolateral oblique images of both breasts were obtained usi ng digital technique with tomosynthesis and also analyzed with computer-aided detection software. COMPARISON: None available. Prior imaging performed at outside hospital not available at time of exam ination. BREAST COMPOSITION: Category B: There are scattered fibroglandular densities. FINDINGS: Benign calcifications are present. The parenchymal pattern appears stable. Indeterminate microcalcifications are seen in the slightly lateral, slightly superior left breast roger roximately 6 cm from the nipple. No suspicious left breast mass or architectural distortion. No suspicious masses, microcalcifications or architectural distortion is present to suggest malignanc y in the right breast. The visualized axillae are unremarkable. IMPRESSION: Left breast indeterminate microcalcifications, findings for which additional imaging is a dvised. RECOMMENDATION: The patient will be contacted to return for additional imaging and a supplemental rep ort will follow. BIRADS 0: INCOMPLETE - NEED ADDITIONAL IMAGING EVALUATION AND/OR PRIOR MAMMOGRAMS FOR COMPARISON. This study was interpreted with the benefit of Computerized Aided Detection (CAD). Patient information is entered into the reminder system with a target due date for the next screening mammogram. Mammography is the most sensitive method for finding small breast cancers, but it does not detect the m all and is not a substitute for careful clinical examination. A negative mammogram does not negate a clinically suspicious finding and should not result in delay in biopsying a clinically suspicious a bnormality. "Our facility is accredited by the [employer] Mammography Program." Electronically signed by: Fco Pineda MD (05/23/2021 4:39 PM) [facility]
== END ==
LOC: MAMMO 11:16
PROVIDERS: ATTEND Family Medicine
DX: Z12.31 Encounter for screening mammogram for malignant neoplasm of breast (principal)
CPT/HCPCS: 77063; 77067

== ENCOUNTER 2021-06-30 05:15 | Emergency (ER) | payer OTHER, MEDICAID ==
[~2021-06-30] VITALS: Ht 157.5 cm; Wt 76.0 kg
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
[2021-06-30] MEDS ORDERED: ONDANSETRON PF 4 MG/2 ML VIAL. ONE (05:51)
[2021-06-30 05:59] LABS: BASO % 0 % (0-3); EOS % 0 % (0-3); HEMATOCRIT 42.3 % (36.0-47.0); LYMPH # 0.8 x10^3/uL (1.0-4.8); LYMPH % 9 % (24-48); MEAN CORPUSCULAR HEMOGLOBIN 30 pg (25-35); MEAN CORPUSCULAR HGB CONC 33 g/dL (31-37); MEAN CORPUSCULAR VOLUME 92 fL (79-100); MONO # 0.4 x10^3/uL (0.0-1.1); MONO % 4 % (0-9); NEUT # 8.4 x10^3uL (1.8-7.7); NEUT % 87 % (31-73); PLATELET COUNT 341 x10^3/uL (140-400); RED BLOOD COUNT 4.62 x10^6/uL (3.50-5.40); RED CELL DISTRIBUTION WIDTH 13.6 % (11.5-14.5); WHITE BLOOD COUNT 9.8 x10^3/uL (4.0-11.0)
[2021-06-30] MEDS ORDERED: CONTRAST GIVEN. MC PRN (06:00)
[2021-06-30] MEDS ORDERED: IV RINGERS SOLUTION,LACTATED 1,000 ML IV ONE (06:00)
[2021-06-30] MEDS ORDERED: diphenhydrAMINE 50 MG/ML VIAL IVP ONE (06:00)
[2021-06-30] MEDS ORDERED: IOHEXOL 300 MG/ML 75 ML VIAL. IV ONE (06:00)
[2021-06-30 06:06] LABS: CALCIUM 9.3 mg/dL (8.5-10.1); CREATININE 0.9 mg/dL (0.6-1.0); GFR 65.5; POTASSIUM 4.4 mmol/L (3.5-5.1)
[2021-06-30 06:12] LABS: ALBUMIN 3.8 g/dL (3.4-5.0); ALBUMIN/GLOBULIN RATIO 1.1 (1.0-1.7); MAGNESIUM 2.1 mg/dL (1.8-2.4); TOTAL BILIRUBIN 0.3 mg/dL (0.2-1.0); TOTAL PROTEIN 7.2 g/dL (6.4-8.2)
--- NOTE | 2021-06-30 06:29 | EKG ---
[address] [address] Test Date: 2021-06-30 Test Time: 06:19:22 Pat Name: RAFAEL VANCE Department: Room: Gender: F Mat Sewer: : 1970 Requested By: DIANA KAN Order Number: [id number] Reading MD: Measurements Intervals [place] Rate: 91 P: 64 ME: 156 QRS: 51 QRSD: 88 T: 43 QT: 370 QTc: 457 Interpretive Statements SINUS RHYTHM QRS(T) CONTOUR ABNORMALITY CONSISTENT WITH INFERIOR INFARCT PROBABLY OLD ABNORMAL ECG RI6.02 No previous ECG available for comparison
--- NOTE | 2021-06-30 06:33 | RAD ---
EXAM: CHEST ONE VIEW. HISTORY: Shortness of breath. COMPARISON: 05/13/2021. FINDINGS: A frontal view of the chest is obtained. There are no confluent infiltrates. There is no pneumothorax or pleural effusion. The heart is not en larged. IMPRESSION: 1. No confluent infiltrates. Electronically signed by: Brett Conner MD (06/30/2021 6:31 AM) [facility]
--- NOTE | 2021-06-30 07:21 | RAD ---
EXAM: CT ABDOMEN/PELVIS WITH CONTRAST. HISTORY: Abdominal pain. Nausea/vomiting. TECHNIQUE: Computed tomography of the abdomen and pelvis was performed after the intravenous administ ration of iodinated contrast. One or more of the following individualized dose reduction techniques w ere utilized for this examination: 1. Automated exposure control. 2. Adjustment of the mA and/or kV according to patient size. 3. Use of iterative reconstruction technique. COMPARISON: 03/18/2021. FINDINGS: Lung windows through the visualized portions of the bases reveal scattered calcified granul omas. Bone windows reveal no suspicious lesions. A 2.0 x 1.6 cm left adrenal nodule is unchanged and likely a benign adenoma. The right adrenal gland is unremarkable. The gallbladder is surgically absent. There is mild intra and extrahepatic biliary dilatation without a clear cause for distal obstruction. The pancreas, liver, and spleen are otherwise unremarkable. Be nign renal cysts measure up to 12 mm on the right. A gastrostomy tube and 2 nasogastric tubes are in place. The uterus is surgically absent. There is no evidence of appendicitis. There is no small bowel obstruction. A bladder stimulator is noted on the right. IMPRESSION: 1. Mild intra and extra hepatic biliary dilatation status post cholecystectomy. Correlate for cholest asis to assess significance. 2. No small bowel obstruction. No acute findings. 3. 2 cm left adrenal adenoma. Electronically signed by: Brett Conner MD (06/30/2021 7:18 AM) [facility]
[2021-06-30] MEDS ORDERED: ONDA4TAB12 PO (07:52)
== END 2021-06-30 08:03 | disposition home or self-care (01) ==
LOC: ER 05:15
DX: R10.84 Generalized abdominal pain (principal); R11.2 Nausea with vomiting, unspecified; I11.0 Hypertensive heart disease with heart failure; I50.9 Heart failure, unspecified; F17.210 Nicotine dependence, cigarettes, uncomplicated; F12.10 Cannabis abuse, uncomplicated; Z90.710 Acquired absence of both cervix and uterus
CPT/HCPCS: 36415; 71045; 74177; 80053; 82803; 83690; 83735; 84484; 85025; 93005; 96361; 96374; 99285; J1200; J7120; Q9967

== ENCOUNTER 2021-07-22 09:35 | Emergency (ER) | payer OTHER, MEDICAID ==
[~2021-07-22] VITALS: Ht 157.5 cm; Wt 78.3 kg
[~2021-07-22 09:35] MED LIST changes: -DULO60CA6 PO; +DULO60CA7 PO
--- NOTE | 2021-07-22 10:43 | RAD ---
XR RIGHT CLAVICLE, XR SHOULDER_RIGHT 2+ VIEWS Clinical indications: Reason: pain /trauma. Findings: No acute fracture. There is widening of the right AC joint with deformity of the lateral se gment of the right clavicle. This may be related to previous trauma or surgery. This was seen on a pr evious chest x-ray dated June 30, 2021. The glenohumeral joint is normally aligned. There is mod erate degenerative osteoarthritis of the right glenohumeral joint. Prominent inferior spur of the hum eral head is seen. No lytic process. IMPRESSION: No acute osseous abnormality is evident. Electronically signed by: Francisco Wisdom MD (07/22/2021 10:41 AM) [id number]
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
[2021-07-22 11:29] VITALS: BP 108/75
== END 2021-07-22 11:29 | disposition home or self-care (01) ==
LOC: ER 09:35
DX: M25.511 Pain in right shoulder (principal); M54.2 Cervicalgia; I11.0 Hypertensive heart disease with heart failure; I50.9 Heart failure, unspecified; F17.210 Nicotine dependence, cigarettes, uncomplicated; F12.10 Cannabis abuse, uncomplicated; Z90.710 Acquired absence of both cervix and uterus; Z88.6 Allergy status to analgesic agent; Z88.5 Allergy status to narcotic agent; Z88.1 Allergy status to other antibiotic agents
CPT/HCPCS: 29240; 73000; 73030; 99284-25

== ENCOUNTER 2021-07-26 13:59 | Emergency (ER) | payer OTHER, MEDICAID ==
[~2021-07-26] VITALS: Ht 157.5 cm; Wt 74.5 kg
[2021-07-26 14:06] VITALS: BP 163/96
[2021-07-26] MEDS ORDERED: IOHEXOL 240 MG/ML 50ML VIAL. ONE (14:28)
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
--- NOTE | 2021-07-26 15:00 | RAD ---
One view abdomen 2:24 PM HISTORY: G-tube placement AP view the abdomen was obtained before and after the placement of water-soluble contrast. There is a GJ tube with its tip in the jejunum. Contrast is seen in the jejunum. There is no extravas ation of contrast. IMPRESSION: GJ tube. No leak. Electronically signed by: Jamin oGmez III, MD (07/26/2021 2:58 PM) [facility]
== END 2021-07-26 16:52 | disposition home or self-care (01) ==
LOC: ER 14:26
DX: K94.20 Gastrostomy complication, unspecified (principal); I11.0 Hypertensive heart disease with heart failure; I50.9 Heart failure, unspecified; E11.9 Type 2 diabetes mellitus without complications; Z90.710 Acquired absence of both cervix and uterus; F17.210 Nicotine dependence, cigarettes, uncomplicated; F12.10 Cannabis abuse, uncomplicated; Z88.6 Allergy status to analgesic agent; Z88.5 Allergy status to narcotic agent; Z88.1 Allergy status to other antibiotic agents
CPT/HCPCS: 71045; 99283-25

== ENCOUNTER 2021-07-30 07:16 | Emergency (ER) | payer OTHER, MEDICAID ==
[~2021-07-30] VITALS: Ht 157.5 cm; Wt 74.5 kg
[2021-07-30 07:20] VITALS: BP 135/67
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
[2021-07-30] MEDS ORDERED: HYDROmorphone PF 1 MG/ML DISP.SYRIN IM ONE (08:30)
[2021-07-30] MEDS ORDERED: ONDANSETRON ODT 4 MG TAB.RAPDIS PO ONE (08:30)
== END 2021-07-30 08:34 | disposition home or self-care (01) ==
LOC: ER 07:16
DX: T85.528A Displacement of other gastrointestinal prosthetic devices, implants and grafts, initial encounter (principal); I11.0 Hypertensive heart disease with heart failure; I50.9 Heart failure, unspecified; E11.9 Type 2 diabetes mellitus without complications; F17.210 Nicotine dependence, cigarettes, uncomplicated; F12.10 Cannabis abuse, uncomplicated; Z88.5 Allergy status to narcotic agent; Z90.710 Acquired absence of both cervix and uterus; Z88.6 Allergy status to analgesic agent
CPT/HCPCS: 96372; 99283; J1170; Q0162